=== PATIENT | male | born 1970 | race Caucasian/White ===

== ENCOUNTER 2018-02-28 21:15 | Emergency (ER) | payer MEDICARE, OTHER ==
[2018-02-28 21:22] VITALS: RESP 18; TEMP 98.7
[2018-02-28] MEDS ORDERED: ONDANSETRON 4 MG/2 ML VIAL IVP STA (21:31)
[2018-02-28] MEDS ORDERED: MORPHINE SULFATE 4 MG/ML SYRINGE IV STA (21:31)
[2018-02-28] MEDS ORDERED: SODIUM CHLORIDE 0.9% 1,000 ML IV STA (21:31)
--- NOTE | 2018-02-28 21:43 | ED ---
Abdominal Pain HPI - General Chief Complaint: Abdominal Pain Stated Complaint: Abd/flank pain Time Seen by Provider: 02/28/18 21:24 Source: patient, RN notes reviewed Mode of arrival: ambulatory Limitations: no limitations - History of Present Illness Initial Comments: 47-year-old male presents emergency Department chief complaint of left lower abdominal pain, low back pain. Patient states that started last few days states has worsened today including nausea and vomiting. Patient has been constipated for last 6 days states he took Dulcolax with no relief. Patient states the pain almost feels like it's in his left hip. Denies any redness or rash noted. Patient states she's had a gastric sleeve in the past 2 and half years ago by Dr. Monroy. Patient states he last 267 pounds. Patient denies any current chest pain, shortness breath, fever, chills. He does state that he felt that he had a fever the other day please unsure. Patient has no dysuria no hematuria patient said no history kidney stones, no prior bowel infections. - Related Data Home Medications Medication Instructions Recorded Confirmed Xolair(Unknown Dose) 1 dose SQ Q14D 02/28/18 02/28/18 Allergies Allergy/AdvReac Type Severity Reaction Status Date / Time No Known Allergies Allergy Verified 02/28/18 22:06 Review of Systems ROS Statement: Those systems with pertinent positive or pertinent negative responses have been documented in the HPI. ROS Other: All systems not noted in ROS Statement are negative. Past Medical History Past Medical History: Asthma, COPD, Hearing Disorder / Deafness, Hypertension, Osteoarthritis (OA), Sleep Apnea/CPAP/BIPAP Additional Past Medical History / Comment(s): gout, cpap, O2 therapy AT NIGHT / PRN History of Any Multi-Drug Resistant Organisms: None Reported Past Surgical History: No Surgical Hx Reported Additional Past Surgical History / Comment(s): gastric sleeve, lymp node removal from neck, varicose vein removal. Past Anesthesia/Blood Transfusion Reactions: No Reported Reaction Past Psychological History: No Psychological Hx Reported Smoking Status: Current every day smoker Past Alcohol Use History: Rare Past Drug Use History: Marijuana - Past Family History Mother Family Medical History: Diabetes Mellitus, Hypertension General Exam Limitations: no limitations General appearance: alert, in no apparent distress, other (Appears uncomfortable ) Head exam: Present: atraumatic, normocephalic, normal inspection Eye exam: Present: normal appearance, PERRL, EOMI. Absent: scleral icterus, conjunctival injection, periorbital swelling Respiratory exam: Present: normal lung sounds bilaterally. Absent: respiratory distress, wheezes, rales, rhonchi, stridor Cardiovascular Exam: Present: regular rate, normal rhythm, normal heart sounds. Absent: systolic murmur, diastolic murmur, rubs, gallop, clicks GI/Abdominal exam: Present: soft, tenderness (Mild left lower), normal bowel sounds. Absent: distended, guarding, rebound, rigid Extremities exam: Present: other (Mild discomfort with range of motion left hip , legs neurovascular intact with equal pedal pulses) Skin exam: Present: warm, dry, intact, normal color. Absent: rash Course Vital Signs 02/28/18 21:19 Temperature 98.7 F Pulse Rate 75 Respiratory 18 Rate Blood Pressure 121/76 O2 Sat by Pulse 97 Oximetry Medical Decision Making - Medical Decision Making This a 47-year-old male presented for left-sided abdominal pain. Patient lab work, CT, urinalysis no acute findings. CT showed possible evidence of the plantar processes towards umbilicus that he has no localized tenderness. Patient has all left lower quadrant. This may be related to his constipation that he has had for last 6 days. Offered enema in emergency department patient declined states he rather go home with medications. We did discuss return parameters. Patient vitals are stable, lower extremity strength equal neurovascular intact - Lab Data Result diagrams: 02/28/18 21:50 02/28/18 21:50 Lab Results 02/28/18 02/28/18 02/28/18 Range/Units 21:50 21:50 21:50 WBC 6.6 (3.8-10.6) k/uL RBC 4.94 (4.30-5.90) m/uL Hgb 15.7 (13.0-17.5) gm/dL Hct 46.2 (39.0-53.0) % MCV 93.7 (80.0-100.0) fL MCH 31.7 (25.0-35.0) pg MCHC 33.8 (31.0-37.0) g/dL RDW 13.3 (11.5-15.5) % Plt Count 127 L (150-450) k/uL Neutrophils % 55 % Lymphocytes % 29 % Monocytes % 9 % Eosinophils % 3 % Basophils % 1 % Neutrophils # 3.7 (1.3-7.7) k/uL Lymphocytes # 1.9 (1.0-4.8) k/uL Monocytes # 0.6 (0-1.0) k/uL Eosinophils # 0.2 (0-0.7) k/uL Basophils # 0.1 (0-0.2) k/uL PT (9.0-12.0) sec INR (<1.2) APTT (22.0-30.0) sec Sodium 141 (137-145) mmol/L Potassium 4.1 (3.5-5.1) mmol/L Chloride 113 H (98-107) mmol/L Carbon Dioxide 25 (22-30) mmol/L Anion Gap 3 mmol/L BUN 11 (9-20) mg/dL Creatinine 0.72 (0.66-1.25) mg/dL Est GFR (CKD-EPI)AfAm >90 (>60 ml/min/1.73 sqM) Est GFR (CKD-EPI)NonAf >90 (>60 ml/min/1.73 sqM) Glucose 120 H (74-99) mg/dL Plasma Lactic Acid Luis 1.0 (0.7-2.0) mmol/L Calcium 8.7 (8.4-10.2) mg/dL Total Bilirubin 0.3 (0.2-1.3) mg/dL AST 21 (17-59) U/L ALT 32 (21-72) U/L Alkaline Phosphatase 60 (38-126) U/L C-Reactive Protein 7.1 (<10.0) mg/L Total Protein 5.1 L (6.3-8.2) g/dL Albumin 3.1 L (3.5-5.0) g/dL Amylase 64 (30-110) U/L Lipase 102 (23-300) U/L Urine Color Urine Appearance (Clear) Urine pH (5.0-8.0) Ur Specific Collison (1.001-1.035) Urine Protein (Negative) Urine Glucose (UA) (Negative) Urine Ketones (Negative) Urine Blood (Negative) Urine Nitrite (Negative) Urine Bilirubin (Negative) Urine Urobilinogen (<2.0) mg/dL Ur Leukocyte Esterase (Negative) 02/28/18 02/28/18 Range/Units 21:50 21:55 WBC (3.8-10.6) k/uL RBC (4.30-5.90) m/uL Hgb (13.0-17.5) gm/dL Hct (39.0-53.0) % MCV (80.0-100.0) fL MCH (25.0-35.0) pg MCHC (31.0-37.0) g/dL RDW (11.5-15.5) % Plt Count (150-450) k/uL Neutrophils % % Lymphocytes % % Monocytes % % Eosinophils % % Basophils % % Neutrophils # (1.3-7.7) k/uL Lymphocytes # (1.0-4.8) k/uL Monocytes # (0-1.0) k/uL Eosinophils # (0-0.7) k/uL Basophils # (0-0.2) k/uL PT 10.0 (9.0-12.0) sec INR 0.9 (<1.2) APTT 26.7 (22.0-30.0) sec Sodium (137-145) mmol/L Potassium (3.5-5.1) mmol/L Chloride (98-107) mmol/L Carbon Dioxide (22-30) mmol/L Anion Gap mmol/L BUN (9-20) mg/dL Creatinine (0.66-1.25) mg/dL Est GFR (CKD-EPI)AfAm (>60 ml/min/1.73 sqM) Est GFR (CKD-EPI)NonAf (>60 ml/min/1.73 sqM) Glucose (74-99) mg/dL Plasma Lactic Acid Luis (0.7-2.0) mmol/L Calcium (8.4-10.2) mg/dL Total Bilirubin (0.2-1.3) mg/dL AST (17-59) U/L ALT (21-72) U/L Alkaline Phosphatase (38-126) U/L C-Reactive Protein (<10.0) mg/L Total Protein (6.3-8.2) g/dL Albumin (3.5-5.0) g/dL Amylase (30-110) U/L Lipase (23-300) U/L Urine Color Yellow Urine Appearance Clear (Clear) Urine pH 5.5 (5.0-8.0) Ur Specific Collison 1.019 (1.001-1.035) Urine Protein Negative (Negative) Urine Glucose (UA) Negative (Negative) Urine Ketones Negative (Negative) Urine Blood Negative (Negative) Urine Nitrite Negative (Negative) Urine Bilirubin Negative (Negative) Urine Urobilinogen 3.0 (<2.0) mg/dL Ur Leukocyte Esterase Negative (Negative) Disposition Clinical Impression: Abdominal pain Disposition: HOME SELF-CARE Condition: Stable Instructions: Abdominal Pain (ED) Additional Instructions: Please return to the Emergency Department if symptoms worsen or any other concerns. Is patient prescribed a controlled substance at d/c from ED?: No Referrals: Lisa Hensley MD [Primary Care Provider] - 1-2 days Time of Disposition: 22:52
[2018-02-28 22:10] LABS: Basophils # (A) 0.1 k/uL (0-0.2); Basophils % (A) 1 %; Eosinophils # (A) 0.2 k/uL (0-0.7); Eosinophils % (A) 3 %; HCT 46.2 % (39.0-53.0); HGB 15.7 gm/dL (13.0-17.5); Lymphocytes # (A) 1.9 k/uL (1.0-4.8); Lymphocytes % (A) 29 %; MCH 31.7 pg (25.0-35.0); MCHC 33.8 g/dL (31.0-37.0); MCV 93.7 fL (80.0-100.0); Mean Platelet Volume 7.3; Monocytes # (A) 0.6 k/uL (0-1.0); Monocytes % (A) 9 %; Neutrophils # (A) 3.7 k/uL (1.3-7.7); Neutrophils % (A) 55 %; Platelet Count 127 k/uL (150-450); RBC 4.94 m/uL (4.30-5.90); RDW 13.3 % (11.5-15.5); WBC 6.6 k/uL (3.8-10.6)
[2018-02-28 22:18] LABS: INR 0.9 (<1.2); Partial Thromboplastin Time 26.7 sec (22.0-30.0)
[2018-02-28 22:21] LABS: ALT 32 U/L (21-72); AST 21 U/L (17-59); Albumin 3.1 g/dL (3.5-5.0); Alkaline Phosphatase 60 U/L (38-126); Amylase 64 U/L (30-110); Anion Gap 3 mmol/L; Blood Urea Nitrogen 11 mg/dL (9-20); C Reactive Protein 7.1 mg/L (<10.0); Calcium 8.7 mg/dL (8.4-10.2); Carbon Dioxide 25 mmol/L (22-30); Chloride 113 mmol/L (98-107); Glucose 120 mg/dL (74-99); Lipase 102 U/L (23-300); Potassium 4.1 mmol/L (3.5-5.1); Sodium 141 mmol/L (137-145); Total Bilirubin 0.3 mg/dL (0.2-1.3); Total Protein 5.1 g/dL (6.3-8.2)
[2018-02-28 22:24] LABS: Appearance,Urine Clear (Clear); Bilirubin,Urine Negative (Negative); Blood,Urine Negative (Negative); Color,Urine Yellow; Glucose,Urine (UA) Negative (Negative); Ketones,Urine Negative (Negative); Leukocyte Esterase,Urine Negative (Negative); Nitrite,Urine Negative (Negative); PH, Urine 5.5 (5.0-8.0); Protein,Urine Negative (Negative); Specific Gravity,Urine 1.019 (1.001-1.035)
--- NOTE | 2018-02-28 22:42 | CT ---
EXAMINATION TYPE: CT abdomen pelvis w con DATE OF EXAM: 02/28/2018 COMPARISON: None HISTORY: Nausea, vomiting and diarrhea. CT DLP: 698.6 mGycm Automated exposure control for dose reduction was used. TECHNIQUE: Helical acquisition of images was performed from the lung bases through the pelvis. CONTRAST: Performed without Oral Contrast and with IV Contrast, patient injected with 100ml mL of Isovue 300. FINDINGS: Lung bases are clear of consolidation. There is no pleural effusion. There is no pericardial effusion . There are clips from bariatric surgery. Liver shows no focal defect. Gallbladder has normal size. B ile ducts are not dilated. Spleen appears normal. There is no pancreatic mass. There is no adrenal mass. Kidneys show satisfactory contrast opacification. There is no hydronephrosi s. There is no retroperitoneal adenopathy. Bladder distends smoothly. There is no inguinal hernia. Th ere is no free fluid in the pelvis. There is no mesenteric edema. There is no sign of free air. There is mild skin thickening at the umbi licus. Appendix is not seen. There is no sign of appendicitis. There is mild subcutaneous edema aroun d the abdomen. The lumbar vertebra have normal spacing and alignment. There is no compression fractur e. Bony pelvis appears intact. IMPRESSION: NEGATIVE CT SCAN OF THE ABDOMEN AND PELVIS. PREVIOUS SURGERY. SUBCUTANEOUS EDEMA. THERE IS SOME INCRE ASED DENSITY AT THE UMBILICUS THAT COULD RELATE TO MILD INFLAMMATORY PROCESS.
[2018-02-28] MEDS ORDERED: MAGNESIUM CITRATE 296 ML BOTTLE PO ONE (22:52)
[2018-02-28] MEDS ORDERED: DOCUSATE 283 MG/5 ML ENEMA RECTAL STA (22:52)
[2018-02-28 23:11] VITALS: BP 105/77; PULSE 68
== END 2018-02-28 23:12 | disposition home or self-care (01) ==
LOC: EC 21:15
DX: K59.00 Constipation, unspecified (principal); M54.5 Low back pain; R11.2 Nausea with vomiting, unspecified; J45.909 Unspecified asthma, uncomplicated; F17.200 Nicotine dependence, unspecified, uncomplicated; G47.30 Sleep apnea, unspecified; Z99.89 Dependence on other enabling machines and devices; Z98.84 Bariatric surgery status
CPT/HCPCS: 36415; 80053; 82150; 83605; 83690; 85025; 85610; 85730; 86140; 81003; 87040; 87086; 74177; 99284; 96374; 96375; 96361; J2270; J2405; Q9967

== ENCOUNTER 2018-05-28 18:08 | Emergency (ER) | payer MEDICARE, OTHER ==
[2018-05-28 18:16] VITALS: RESP 18
[2018-05-28] MEDS ORDERED: SODIUM CHLORIDE 0.9% 1,000 ML IV STA (19:05)
[2018-05-28] MEDS ORDERED: diphenhydrAMINE 50 MG/ML 1 ML VIAL IVP STA (19:05)
[2018-05-28] MEDS ORDERED: KETOROLAC 30 MG/ML 1 ML VIAL IVP STA (19:05)
[2018-05-28] MEDS ORDERED: METOCLOPRAMIDE 5 MG/ML 2 ML VIAL IVP STA (19:05)
[2018-05-28] MEDS ORDERED: ACETAMINOPHEN TAB 500 MG TAB PO STA (19:13)
--- NOTE | 2018-05-28 19:20 | ED ---
Headache HPI - General Source: RN notes reviewed, old records reviewed Mode of arrival: ambulatory Limitations: no limitations <Maura Johnson - Last Filed: 05/28/18 20:08> <Rolly Burrows - Last Filed: 05/28/18 20:25> - General Chief Complaint: Headache Stated Complaint: HEADACHE Time Seen by Provider: 05/28/18 18:18 - History of Present Illness Initial Comments: Patient is a 47-year-old male who presents emergency department today with complaints of headache. He reports he's been having headaches since 05/25/2018. Patient states that he has been having symptoms of tenderness to the scalp. He states the fever started today. He reports a slight cough. He has history of COPD. He states that he was unable to wear CPAP machine because the pressure off his head to hurt more. He denies any nausea or vomiting. She denies any significant history of headaches. (Maura Johnson) - Related Data Home Medications Medication Instructions Recorded Confirmed Ibuprofen [Motrin Ib] 400 mg PO Q6H PRN 05/28/18 05/28/18 Multivitamin,Therapeutic [Thera] 1 tab PO DAILY 05/28/18 05/28/18 Allergies Allergy/AdvReac Type Severity Reaction Status Date / Time Seafood Allergy Unknown Uncoded 05/28/18 19:40 Review of Systems ROS Other: All systems not noted in ROS Statement are negative. <Maura Johnson - Last Filed: 05/28/18 20:08> ROS Other: All systems not noted in ROS Statement are negative. <Rolly Burrows - Last Filed: 05/28/18 20:25> ROS Statement: Those systems with pertinent positive or pertinent negative responses have been documented in the HPI. Past Medical History Past Medical History: Asthma, COPD, Hearing Disorder / Deafness, Hypertension, Osteoarthritis (OA), Sleep Apnea/CPAP/BIPAP Additional Past Medical History / Comment(s): gout, cpap, O2 therapy AT NIGHT /PRN History of Any Multi-Drug Resistant Organisms: None Reported Past Surgical History: No Surgical Hx Reported Additional Past Surgical History / Comment(s): gastric sleeve, lymp node removal from neck, varicose vein removal. Past Anesthesia/Blood Transfusion Reactions: No Reported Reaction Past Psychological History: No Psychological Hx Reported Smoking Status: Current every day smoker Past Alcohol Use History: Rare Past Drug Use History: Marijuana - Past Family History Mother Family Medical History: Diabetes Mellitus, Hypertension <Maura Johnson - Last Filed: 05/28/18 20:08> General Exam Limitations: no limitations General appearance: alert, in no apparent distress Head exam: Present: atraumatic, normocephalic, normal inspection Eye exam: Present: normal appearance, PERRL, EOMI. Absent: scleral icterus, conjunctival injection, periorbital swelling ENT exam: Present: normal exam, mucous membranes moist Neck exam: Present: normal inspection. Absent: tenderness, meningismus, lymphadenopathy Respiratory exam: Present: normal lung sounds bilaterally. Absent: respiratory distress, wheezes, rales, rhonchi, stridor Cardiovascular Exam: Present: regular rate, normal rhythm, normal heart sounds. Absent: systolic murmur, diastolic murmur, rubs, gallop, clicks GI/Abdominal exam: Present: soft, normal bowel sounds. Absent: distended, tenderness, guarding, rebound, rigid Extremities exam: Present: normal inspection, full ROM, normal capillary refill. Absent: tenderness, pedal edema, joint swelling, calf tenderness Back exam: Present: normal inspection, full ROM Neurological exam: Present: alert, oriented X3, CN II-XII intact Expanded Patient oriented to: Present: person, place, time Speech: Present: fluid speech Cranial nerves: EOM's Intact: Normal, Facial Sensation: Normal Cerebellar function: Finger to Nose: Normal Upper motor neuron: Pronator Drift: Normal Sensory exam: Upper Extremity Light Touch: Normal, Lower Extremity Light Touch: Normal Motor strength exam: RUE: 5, LUE: 5, RLE: 5, LLE: 5 Eye Response: (4) open spontaneously Motor Response: (6) obeys commands Verbal Response: (5) oriented Francie Total: 15 Psychiatric exam: Present: normal affect, normal mood Skin exam: Present: warm, dry, intact, normal color. Absent: rash <Maura Johnson - Last Filed: 05/28/18 20:08> - General Exam Comments Initial Comments: 47-year-old male. (Maura Johnson) Course Vital Signs 05/28/18 05/28/18 18:14 18:44 Temperature 99.2 F 99.9 F H Pulse Rate 74 Respiratory 18 Rate Blood Pressure 131/85 O2 Sat by Pulse 99 Oximetry Medical Decision Making - Lab Data Result diagrams: 05/28/18 19:30 05/28/18 19:30 - Radiology Data Radiology results: report reviewed <Maura Johnson - Last Filed: 05/28/18 20:08> - Lab Data Result diagrams: 05/28/18 19:30 05/28/18 19:30 - Radiology Data Radiology results: report reviewed (Computed tomography scan of the brain shows no acute process) <Rolly Burrows - Last Filed: 05/28/18 20:25> - Medical Decision Making Patient is a 47-year-old male presents for in terms 3 days of headache. He went to some scalp tenderness. at this time has no neurological deficits otherwise appears well. Patient was started on IV given typical migraine cocktail including Toradol and Reglan and Benadryl. He had a CT of the brain without contrast that he is not have any typical headaches or migraine such as this. He did have a low-grade temperature upon arrival 99.9. He states he started somewhat feverish. His no meningeal signs. Patient's labwork including influenza testing is all reviewed and unremarkable. Negative flu swab. CT of the brain was completed without contrast. CT of the brain results are pending at 8:07 PM. Patient's case discussed with Dr. Alejandra stool finish disposition. (Maura Johnson) Patient reevaluated by myself, Dr. Burrows. Patient resting comfortably in bed. Patient states discomfort was earlier 7/10 however now has improved to 4/10 following medications. No signs of meningismus. Patient updated on results. Patient is comfortable with discharge home. Patient states headache was gradual onset over a couple of days. Patient provided warning signs to look for for worsening symptoms and need to return. Patient is advised follow-up with his doctor tomorrow. (Rolly Burrows) - Lab Data Lab Results 05/28/18 05/28/18 05/28/18 Range/Units 19:20 19:30 19:30 WBC 9.9 (3.8-10.6) k/uL RBC 5.07 (4.30-5.90) m/uL Hgb 15.3 (13.0-17.5) gm/dL Hct 47.0 (39.0-53.0) % MCV 92.7 (80.0-100.0) fL MCH 30.3 (25.0-35.0) pg MCHC 32.6 (31.0-37.0) g/dL RDW 13.0 (11.5-15.5) % Plt Count 152 (150-450) k/uL Neutrophils % 73 % Lymphocytes % 15 % Monocytes % 7 % Eosinophils % 2 % Basophils % 1 % Neutrophils # 7.3 (1.3-7.7) k/uL Lymphocytes # 1.5 (1.0-4.8) k/uL Monocytes # 0.7 (0-1.0) k/uL Eosinophils # 0.2 (0-0.7) k/uL Basophils # 0.1 (0-0.2) k/uL PT (9.0-12.0) sec INR (<1.2) APTT (22.0-30.0) sec Sodium 140 (137-145) mmol/L Potassium 4.5 (3.5-5.1) mmol/L Chloride 107 (98-107) mmol/L Carbon Dioxide 25 (22-30) mmol/L Anion Gap 8 mmol/L BUN 10 (9-20) mg/dL Creatinine 0.78 (0.66-1.25) mg/dL Est GFR (CKD-EPI)AfAm >90 (>60 ml/min/1.73 sqM) Est GFR (CKD-EPI)NonAf >90 (>60 ml/min/1.73 sqM) Glucose 98 (74-99) mg/dL Calcium 9.3 (8.4-10.2) mg/dL Influenza Type A RNA Not Detected (Not Detectd) Influenza Type B (PCR) Not Detected (Not Detectd) 05/28/18 Range/Units 19:30 WBC (3.8-10.6) k/uL RBC (4.30-5.90) m/uL Hgb (13.0-17.5) gm/dL Hct (39.0-53.0) % MCV (80.0-100.0) fL MCH (25.0-35.0) pg MCHC (31.0-37.0) g/dL RDW (11.5-15.5) % Plt Count (150-450) k/uL Neutrophils % % Lymphocytes % % Monocytes % % Eosinophils % % Basophils % % Neutrophils # (1.3-7.7) k/uL Lymphocytes # (1.0-4.8) k/uL Monocytes # (0-1.0) k/uL Eosinophils # (0-0.7) k/uL Basophils # (0-0.2) k/uL PT 10.2 (9.0-12.0) sec INR 0.9 (<1.2) APTT 28.0 (22.0-30.0) sec Sodium (137-145) mmol/L Potassium (3.5-5.1) mmol/L Chloride (98-107) mmol/L Carbon Dioxide (22-30) mmol/L Anion Gap mmol/L BUN (9-20) mg/dL Creatinine (0.66-1.25) mg/dL Est GFR (CKD-EPI)AfAm (>60 ml/min/1.73 sqM) Est GFR (CKD-EPI)NonAf (>60 ml/min/1.73 sqM) Glucose (74-99) mg/dL Calcium (8.4-10.2) mg/dL Influenza Type A RNA (Not Detectd) Influenza Type B (PCR) (Not Detectd) Disposition <Maura Johnson - Last Filed: 05/28/18 20:08> Is patient prescribed a controlled substance at d/c from ED?: No Time of Disposition: 20:25 <Rolly Burrows - Last Filed: 05/28/18 20:25> Clinical Impression: Cephalgia Disposition: HOME SELF-CARE Condition: Stable Instructions (If sedation given, give patient instructions): Acute Headache (ED) Additional Instructions: Please follow-up with primary care physician tomorrow. [id number] Tylenol and Motrin as needed. Return for increased pain, neck pain, stiffness or difficulty moving the neck, confusion, worsening or changing symptoms or other concerns. Referrals: Lisa Hensley MD [Primary Care Provider] - 1-2 days
[2018-05-28 19:42] LABS: Basophils # (A) 0.1 k/uL (0-0.2); Basophils % (A) 1 %; Eosinophils # (A) 0.2 k/uL (0-0.7); Eosinophils % (A) 2 %; HGB 15.3 gm/dL (13.0-17.5); Lymphocytes # (A) 1.5 k/uL (1.0-4.8); Lymphocytes % (A) 15 %; MCH 30.3 pg (25.0-35.0); MCHC 32.6 g/dL (31.0-37.0); MCV 92.7 fL (80.0-100.0); Mean Platelet Volume 6.9; Monocytes # (A) 0.7 k/uL (0-1.0); Monocytes % (A) 7 %; Neutrophils # (A) 7.3 k/uL (1.3-7.7); Neutrophils % (A) 73 %; Platelet Count 152 k/uL (150-450); RBC 5.07 m/uL (4.30-5.90); WBC 9.9 k/uL (3.8-10.6)
[2018-05-28 19:47] LABS: INR 0.9 (<1.2); Prothrombin Time 10.2 sec (9.0-12.0)
[2018-05-28 19:48] LABS: Anion Gap 8 mmol/L; Blood Urea Nitrogen 10 mg/dL (9-20); Calcium 9.3 mg/dL (8.4-10.2); Carbon Dioxide 25 mmol/L (22-30); Chloride 107 mmol/L (98-107); Glucose 98 mg/dL (74-99); Potassium 4.5 mmol/L (3.5-5.1); Sodium 140 mmol/L (137-145)
--- NOTE | 2018-05-28 20:04 | CT ---
EXAMINATION TYPE: CT brain wo con DATE OF EXAM: 05/28/2018 COMPARISON: None HISTORY: headache, fever CT DLP: 1062.4 mGycm. Automated Exposure Control for Dose Reduction was Utilized. TECHNIQUE: CT scan of the head is performed without contrast. FINDINGS: Ventricles and sulci appear normal. There is no mass effect nor midline shift. There is no sign of intracranial hemorrhage. Calvarium is intact. There is mild ethmoid sinus mucosal thickening. IMPRESSION: Negative CT scan of the brain. Minimal ethmoid sinusitis.
[2018-05-28 20:54] VITALS: BP 129/68; PULSE 82; TEMP 98.9
== END 2018-05-28 20:50 | disposition home or self-care (01) ==
LOC: EC 18:08
DX: R51 Headache (principal); R50.9 Fever, unspecified; R05 Cough; G47.30 Sleep apnea, unspecified; Z99.89 Dependence on other enabling machines and devices; H91.90 Unspecified hearing loss, unspecified ear; F17.200 Nicotine dependence, unspecified, uncomplicated; Z91.013 Allergy to seafood
CPT/HCPCS: 36415; 80048; 85025; 85610; 85730; 87502; 70450; 99284; 96374; 96375 ×2; 96361; J1200; J2765; J1885

== ENCOUNTER 2018-06-28 16:25 | Emergency (ER) | payer MEDICARE ==
[2018-06-28] MEDS ORDERED: KETOROLAC 60 MG/2 ML VIAL IVP STA (16:48)
--- NOTE | 2018-06-28 17:24 | ED ---
General Adult HPI - General Chief complaint: Urogenital Stated complaint: Male Time Seen by Provider: 06/28/18 16:30 Source: patient, RN notes reviewed Mode of arrival: ambulatory Limitations: no limitations - History of Present Illness Initial comments: This is a 47-year-old male who presents emergency Department complaining of perineum pain. Patient states he had a bowel movement for 4 days ago and ever since then he states the pain is been getting progressively worse per patient states it did not hurt while having a bowel movement. Patient states currently hurts sitting on but it seems to improve when he stands up and walks around. Patient denies any fever chills. Patient denies any abdominal pain. Patient denies any dysuria hematuria urinary frequency. Patient denies any recent constipation. - Related Data Home Medications Medication Instructions Recorded Confirmed Penicillin V Potassium [Pen Vee K] 500 mg PO DAILY 06/28/18 06/28/18 Previous Rx's Medication Instructions Recorded Ibuprofen [Motrin] 600 mg PO Q6HR PRN #20 tab 06/28/18 Sulfamethox-Tmp 800-160Mg [Bactrim 1 each PO Q12HR #56 tab 06/28/18 DS 800-160 mg] Allergies Allergy/AdvReac Type Severity Reaction Status Date / Time Seafood Allergy Unknown Uncoded 06/28/18 16:33 Review of Systems ROS Statement: Those systems with pertinent positive or pertinent negative responses have been documented in the HPI. ROS Other: All systems not noted in ROS Statement are negative. Past Medical History Past Medical History: Asthma, COPD, Hearing Disorder / Deafness, Hypertension, Osteoarthritis (OA), Sleep Apnea/CPAP/BIPAP Additional Past Medical History / Comment(s): gout, cpap, O2 therapy AT NIGHT /PRN History of Any Multi-Drug Resistant Organisms: None Reported Past Surgical History: No Surgical Hx Reported Additional Past Surgical History / Comment(s): gastric sleeve, lymp node removal from neck, varicose vein removal. Past Anesthesia/Blood Transfusion Reactions: No Reported Reaction Past Psychological History: No Psychological Hx Reported Smoking Status: Current every day smoker Past Alcohol Use History: Rare Past Drug Use History: Marijuana - Past Family History Mother Family Medical History: Diabetes Mellitus, Hypertension General Exam - General Exam Comments Initial Comments: GENERAL: Patient is well-developed and well-nourished. Patient is nontoxic and well- hydrated and is in mild distress. ENT: Neck is soft and supple. No significant lymphadenopathy is noted. Oropharynx i s clear. Moist mucous membranes. Neck has full range of motion without eliciting any pain. EYES: The sclera were anicteric and conjunctiva were pink and moist. Extraocular movements were intact and pupils were equal round and reactive to light. Eyelids were unremarkable. PULMONARY: Unlabored respirations. Good breath sounds bilaterally. No audible rales rhonchi or wheezing was noted. CARDIOVASCULAR: There is a regular rate and rhythm without any murmurs gallops or rubs. ABDOMEN: Soft and nontender with normal bowel sounds. SKIN: Patient's perineum has no swelling no abscess there is noted erythema. But the area is slightly tender. NEUROLOGIC: Patient is alert and oriented x3. Cranial nerves II through XII are grossly intact. Motor and sensory are also intact. Normal speech, volume and content. Symmetrical smile. MUSCULOSKELETAL: Normal extremities with adequate strength and full range of motion. No lower extremity swelling or edema. No calf tenderness. LYMPHATICS: No significant lymphadenopathy is noted PSYCHIATRIC: Normal psychiatric evaluation. Limitations: no limitations Course Vital Signs 06/28/18 16:30 Temperature 98.4 F Pulse Rate 77 Respiratory 20 Rate Blood Pressure 153/94 O2 Sat by Pulse 98 Oximetry Medical Decision Making - Medical Decision Making Patient had perineum tenderness and I will start the patient antibiotics because I'm considering the fact that the patient might have prostatitis - Lab Data Result diagrams: 06/28/18 17:37 06/28/18 17:37 Lab Results 06/28/18 06/28/18 06/28/18 Range/Units 17:37 17:37 17:51 WBC 7.6 (3.8-10.6) k/uL RBC 5.42 (4.30-5.90) m/uL Hgb 16.4 (13.0-17.5) gm/dL Hct 51.4 (39.0-53.0) % MCV 94.9 (80.0-100.0) fL MCH 30.3 (25.0-35.0) pg MCHC 31.9 (31.0-37.0) g/dL RDW 13.6 (11.5-15.5) % Plt Count 155 (150-450) k/uL Neutrophils % 63 % Lymphocytes % 27 % Monocytes % 6 % Eosinophils % 2 % Basophils % 1 % Neutrophils # 4.8 (1.3-7.7) k/uL Lymphocytes # 2.1 (1.0-4.8) k/uL Monocytes # 0.5 (0-1.0) k/uL Eosinophils # 0.2 (0-0.7) k/uL Basophils # 0.1 (0-0.2) k/uL Sodium 140 (137-145) mmol/L Potassium 4.4 (3.5-5.1) mmol/L Chloride 104 (98-107) mmol/L Carbon Dioxide 28 (22-30) mmol/L Anion Gap 8 mmol/L BUN 8 L (9-20) mg/dL Creatinine 0.81 (0.66-1.25) mg/dL Est GFR (CKD-EPI)AfAm >90 (>60 ml/min/1.73 sqM) Est GFR (CKD-EPI)NonAf >90 (>60 ml/min/1.73 sqM) Glucose 93 (74-99) mg/dL Calcium 9.7 (8.4-10.2) mg/dL Total Bilirubin 0.5 (0.2-1.3) mg/dL AST 34 (17-59) U/L ALT 22 (21-72) U/L Alkaline Phosphatase 87 (38-126) U/L Total Protein 7.8 (6.3-8.2) g/dL Albumin 4.8 (3.5-5.0) g/dL Urine Color Yellow Urine Appearance Clear (Clear) Urine pH 7.0 (5.0-8.0) Ur Specific [place] 1.009 (1.001-1.035) Urine Protein Negative (Negative) Urine Glucose (UA) Negative (Negative) Urine Ketones Negative (Negative) Urine Blood Negative (Negative) Urine Nitrite Negative (Negative) Urine Bilirubin Negative (Negative) Urine Urobilinogen 2.0 (<2.0) mg/dL Ur Leukocyte Esterase Negative (Negative) Disposition Clinical Impression: Prostatitis Disposition: HOME SELF-CARE Condition: Good Instructions (If sedation given, give patient instructions): Prostatitis (ED) Prescriptions: Sulfamethox-Tmp 800-160Mg [Bactrim DS 800-160 mg] 1 each PO Q12HR #56 tab Ibuprofen [Motrin] 600 mg PO Q6HR PRN #20 tab PRN Reason: For pain Is patient prescribed a controlled substance at d/c from ED?: No Referrals: Lisa Hensley MD [Primary Care Provider] - 1-2 days Time of Disposition: 20:15
[2018-06-28 17:47] LABS: Basophils # (A) 0.1 k/uL (0-0.2); Basophils % (A) 1 %; Eosinophils # (A) 0.2 k/uL (0-0.7); Eosinophils % (A) 2 %; HCT 51.4 % (39.0-53.0); HGB 16.4 gm/dL (13.0-17.5); Lymphocytes # (A) 2.1 k/uL (1.0-4.8); Lymphocytes % (A) 27 %; MCH 30.3 pg (25.0-35.0); MCHC 31.9 g/dL (31.0-37.0); MCV 94.9 fL (80.0-100.0); Mean Platelet Volume 6.9; Monocytes # (A) 0.5 k/uL (0-1.0); Monocytes % (A) 6 %; Neutrophils # (A) 4.8 k/uL (1.3-7.7); Neutrophils % (A) 63 %; Platelet Count 155 k/uL (150-450); RBC 5.42 m/uL (4.30-5.90); RDW 13.6 % (11.5-15.5); WBC 7.6 k/uL (3.8-10.6)
[2018-06-28 17:57] LABS: ALT 22 U/L (21-72); AST 34 U/L (17-59); Albumin 4.8 g/dL (3.5-5.0); Alkaline Phosphatase 87 U/L (38-126); Anion Gap 8 mmol/L; Blood Urea Nitrogen 8 mg/dL (9-20); Calcium 9.7 mg/dL (8.4-10.2); Carbon Dioxide 28 mmol/L (22-30); Chloride 104 mmol/L (98-107); Glucose 93 mg/dL (74-99); Potassium 4.4 mmol/L (3.5-5.1); Sodium 140 mmol/L (137-145); Total Bilirubin 0.5 mg/dL (0.2-1.3); Total Protein 7.8 g/dL (6.3-8.2)
[2018-06-28 18:17] LABS: Appearance,Urine Clear (Clear); Bilirubin,Urine Negative (Negative); Blood,Urine Negative (Negative); Color,Urine Yellow; Glucose,Urine (UA) Negative (Negative); Ketones,Urine Negative (Negative); Leukocyte Esterase,Urine Negative (Negative); Nitrite,Urine Negative (Negative); Protein,Urine Negative (Negative); Specific Gravity,Urine 1.009 (1.001-1.035)
--- NOTE | 2018-06-28 20:00 | CT ---
EXAMINATION TYPE: CT abdomen pelvis w con DATE OF EXAM: 06/28/2018 COMPARISON: CT abdomen and pelvis February 28, 2018. HISTORY: groin and anal pain CT DLP: 691.6 mGycm, Automated Exposure Control for Dose Reduction was Utilized. CONTRAST: CT scan of the abdomen and pelvis is performed without oral but with IV Contrast, patient injected wi th 100 mL of Isovue 300. FINDINGS: LUNG BASES: No significant abnormality is appreciated. LIVER/GB: No significant abnormality is appreciated. PANCREAS: No significant abnormality is seen. SPLEEN: No significant abnormality is seen. ADRENALS: No significant abnormality is seen. KIDNEYS: No significant abnormality is seen. BOWEL: Evaluation of bowel is suboptimal secondary to lack of enteric contrast. In addition patient h as virtually no intra-abdominal fat making evaluation suboptimal. There are surgical sutures epigastr ic region from gastric bypass procedure are redemonstrated. There is no suspicious small or large bow el dilatation. Perirectal/perianal fat is preserved bilaterally axial image 84. PROSTATE/SEMINAL VESICLES: No gross abnormality seen. LYMPH NODES: No greater than 1cm abdominal or pelvic lymph nodes are appreciated. OSSEOUS STRUCTURES: Multilevel facet arthropathy in the mid to lower lumbar spine. OTHER: Mild diffuse soft tissue anasarca in the pelvis is present. Prominent anterior subcutaneous ve ssels are redemonstrated. Mild calcified plaque of aorta is redemonstrated. IMPRESSION: No significant new or acute finding is seen to account for patient's clinical symptoms.
[2018-06-28 20:47] VITALS: BP 128/84; PULSE 71; RESP 18; TEMP 98
== END 2018-06-28 20:43 | disposition home or self-care (01) ==
LOC: EC 16:25
DX: N41.9 Inflammatory disease of prostate, unspecified (principal); G47.30 Sleep apnea, unspecified; H91.90 Unspecified hearing loss, unspecified ear; F17.200 Nicotine dependence, unspecified, uncomplicated; Z91.013 Allergy to seafood; Z99.89 Dependence on other enabling machines and devices; Z98.84 Bariatric surgery status
CPT/HCPCS: 36415; 80053; 85025; 81003; 74177; 99284; 96374; J1885; Q9967

== ENCOUNTER 2018-07-05 13:26 | Inpatient (IN) | payer MEDICARE, MEDICAID ==
--- NOTE | 2018-07-05 13:48 | ED ---
Psych HPI - General Chief Complaint: Psychiatric Symptoms Stated Complaint: EPS eval Time Seen by Provider: 07/05/18 13:47 Source: patient, RN notes reviewed, old records reviewed Mode of arrival: ambulatory - History of Present Illness Initial Comments: This is a 47-year-old male to the ER for evaluation of delusions, hallucinations. Patient denying drug or alcohol abuse, currently denying suicidal or homicidal thoughts. No significant prior history of similar issue MD Complaint: altered mental status -: unknown Associated Psychiatric Symptoms: racing thoughts, visual hallucinations, delusions History of same: Yes Quality: intermittent, getting worse Improves With: none Worsens With: none Associated Symptoms: denies other symptoms Treatments Prior to Arrival: placed on mental health hold - Related Data Home Medications Medication Instructions Recorded Confirmed Albuterol Inhaler [Ventolin Hfa 1 - 2 puff INHALATION RT-Q6H PRN 07/05/18 07/05/18 Inhaler] Nicotine 21Mg/24Hr Patch [Habitrol 1 patch TRANSDERM DAILY 07/05/18 07/05/18 21Mg/24Hr Patch] Previous Rx's Medication Instructions Recorded Sulfamethox-Tmp 800-160Mg [Bactrim 1 each PO Q12HR #56 tab 06/28/18 DS 800-160 mg] Allergies Allergy/AdvReac Type Severity Reaction Status Date / Time Seafood Allergy Unknown Uncoded 07/05/18 13:39 Review of Systems ROS Statement: Those systems with pertinent positive or pertinent negative responses have been documented in the HPI. ROS Other: All systems not noted in ROS Statement are negative. Past Medical History Past Medical History: Asthma, COPD, Hearing Disorder / Deafness, Hypertension, Osteoarthritis (OA), Sleep Apnea/CPAP/BIPAP Additional Past Medical History / Comment(s): gout, cpap, O2 therapy AT NIGHT /PRN History of Any Multi-Drug Resistant Organisms: None Reported Past Surgical History: No Surgical Hx Reported Additional Past Surgical History / Comment(s): gastric sleeve, lymp node removal from neck, varicose vein removal. Past Anesthesia/Blood Transfusion Reactions: No Reported Reaction Past Psychological History: No Psychological Hx Reported Smoking Status: Current every day smoker Past Alcohol Use History: Rare Past Drug Use History: Marijuana - Past Family History Mother Family Medical History: Diabetes Mellitus, Hypertension General Exam Limitations: no limitations General appearance: alert, in no apparent distress Head exam: Present: atraumatic, normocephalic, normal inspection Eye exam: Present: normal appearance, PERRL, EOMI. Absent: scleral icterus, conjunctival injection, periorbital swelling ENT exam: Present: normal exam, mucous membranes moist Neck exam: Present: normal inspection. Absent: tenderness, meningismus, lymphadenopathy Respiratory exam: Present: normal lung sounds bilaterally. Absent: respiratory distress, wheezes, rales, rhonchi, stridor Cardiovascular Exam: Present: regular rate, normal rhythm, normal heart sounds. Absent: systolic murmur, diastolic murmur, rubs, gallop, clicks GI/Abdominal exam: Present: soft, normal bowel sounds. Absent: distended, tenderness, guarding, rebound, rigid Extremities exam: Present: normal inspection, full ROM, normal capillary refill. Absent: tenderness, pedal edema, joint swelling, calf tenderness Back exam: Present: normal inspection Neurological exam: Present: alert, oriented X3, CN II-XII intact Psychiatric exam: Present: normal affect, normal mood Skin exam: Present: warm, dry, intact, normal color. Absent: rash Course Vital Signs 07/05/18 13:37 Temperature 97.9 F Pulse Rate 72 Respiratory 16 Rate Blood Pressure 152/86 O2 Sat by Pulse 96 Oximetry - Reevaluation(s) Reevaluation #1: 07/05/18 16:43 medically clear for psychiatric evaluation Medical Decision Making - Medical Decision Making 47 male the ER for psychiatric evaluation. Patient will be admitted to be seen and evaluated with likely by psychiatry - Lab Data Lab Results 07/05/18 Range/Units 16:15 Urine Color Yellow Urine Appearance Clear (Clear) Urine pH 6.0 (5.0-8.0) Ur Specific [place] 1.020 (1.001-1.035) Urine Protein Negative (Negative) Urine Glucose (UA) Negative (Negative) Urine Ketones Negative (Negative) Urine Blood Negative (Negative) Urine Nitrite Negative (Negative) Urine Bilirubin Negative (Negative) Urine Urobilinogen 4.0 (<2.0) mg/dL Ur Leukocyte Esterase Moderate H (Negative) Urine RBC 1 (0-5) /hpf Urine WBC 39 H (0-5) /hpf Urine Mucus Occasional H (None) /hpf Urine Opiates Screen Not Detected (NotDetected) Ur Oxycodone Screen Detected H (NotDetected) Urine Methadone Screen Detected H (NotDetected) Ur Propoxyphene Screen Not Detected (NotDetected) Ur Barbiturates Screen Not Detected (NotDetected) U Tricyclic Antidepress Not Detected (NotDetected) Ur Phencyclidine Scrn Not Detected (NotDetected) Ur Amphetamines Screen Not Detected (NotDetected) U Methamphetamines Scrn Not Detected (NotDetected) U Benzodiazepines Scrn Not Detected (NotDetected) Urine Cocaine Screen Not Detected (NotDetected) U Marijuana (THC) Screen Detected H (NotDetected) Disposition Clinical Impression: Psychosis, Acute psychosis Disposition: TRANSFER TO PSYCH HOSP/UNIT Condition: Fair Is patient prescribed a controlled substance at d/c from ED?: No
[2018-07-05] MEDS ORDERED: NICOTINE 21MG/24HR PATCH TRANSDERM STA (15:06)
[2018-07-05 16:22] LABS: Appearance,Urine Clear (Clear); Bilirubin,Urine Negative (Negative); Blood,Urine Negative (Negative); Color,Urine Yellow; Glucose,Urine (UA) Negative (Negative); Ketones,Urine Negative (Negative); Leukocyte Esterase,Urine Moderate (Negative); Mucus,Urine Occasional /hpf; Nitrite,Urine Negative (Negative); Protein,Urine Negative (Negative); RBC,Urine 1 /hpf (0-5); WBC,Urine 39 /hpf (0-5)
[2018-07-05 16:39] LABS: Amphetamine Screen,Urine Not Detected (NotDetected); Barbiturate Screen,Urine Not Detected (NotDetected); Benzodiazepines Screen,Urine Not Detected (NotDetected); Cocaine Screen,Urine Not Detected (NotDetected); Methadone Screen, Urine Detected (NotDetected); Opiate Screen,Urine Not Detected (NotDetected); Oxycodone Screen, Urine Detected (NotDetected); Phencyclidine Screen,Urine Not Detected (NotDetected); Tricyclic Antidepressant,Urine Not Detected (NotDetected); Urn Cannabinoid Scrn Detected (NotDetected)
[2018-07-05] MEDS ORDERED: MAGNESIUM HYDROXIDE 2,400 MG/10 ML CUP PO PRN (17:12)
[2018-07-05] MEDS ORDERED: ACETAMINOPHEN TAB 325 MG TAB PO PRN (17:12)
[2018-07-05] MEDS ORDERED: ZIPRASIDONE 20 MG VIAL IM PRN (17:12)
[2018-07-05] MEDS ORDERED: MAG HYDROX/AL HYDROX/SIMETH 30 ML CUP PO PRN (17:12)
[2018-07-05] MEDS ORDERED: LORazepam 1 MG TAB PO PRN (17:12)
[2018-07-05] MEDS ORDERED: ALBUTEROL INHALER 60 PUFF/8 GM INHALER INHALATION PRN (17:18)
[2018-07-05] MEDS ORDERED: LORazepam 2 MG/ML INJ IM PRN (17:19)
[2018-07-05] MEDS ORDERED: SULFAMETHOX-TMP 800-160MG 1 EACH TAB PO SCH (21:00)
[2018-07-06] MEDS: NICOTINE 21MG/24HR PATCH TRANSDERM SCH (08:09)
[2018-07-06 09:21] LABS: Basophils % (A) 1 %; Eosinophils # (A) 0.1 k/uL (0-0.7); Eosinophils % (A) 2 %; HCT 49.8 % (39.0-53.0); HGB 15.9 gm/dL (13.0-17.5); Lymphocytes # (A) 1.9 k/uL (1.0-4.8); Lymphocytes % (A) 27 %; MCH 30.5 pg (25.0-35.0); MCV 95.4 fL (80.0-100.0); Mean Platelet Volume 7.2; Monocytes # (A) 0.4 k/uL (0-1.0); Monocytes % (A) 6 %; Neutrophils # (A) 4.6 k/uL (1.3-7.7); Neutrophils % (A) 64 %; Platelet Count 171 k/uL (150-450); RBC 5.22 m/uL (4.30-5.90); RDW 14.4 % (11.5-15.5); WBC 7.3 k/uL (3.8-10.6)
[2018-07-06 09:44] LABS: ALT 24 U/L (21-72); AST 41 U/L (17-59); Albumin 4.6 g/dL (3.5-5.0); Alkaline Phosphatase 67 U/L (38-126); Anion Gap 9 mmol/L; Blood Urea Nitrogen 14 mg/dL (9-20); Calcium 9.6 mg/dL (8.4-10.2); Carbon Dioxide 25 mmol/L (22-30); Chloride 107 mmol/L (98-107); Cholesterol 167 mg/dL (<200); Glucose 86 mg/dL (74-99); HDL Cholesterol 49 mg/dL (40-60); LDL Cholesterol,Calculated 90 mg/dL (0-99); Potassium 4.7 mmol/L (3.5-5.1); Sodium 141 mmol/L (137-145); Total Bilirubin 0.8 mg/dL (0.2-1.3); Total Protein 7.2 g/dL (6.3-8.2); Triglycerides 140 mg/dL (<150)
[2018-07-06] MEDS: SULFAMETHOX-TMP 800-160MG 1 EACH TAB PO SCH (10:14)
[2018-07-06 15:18] VITALS: BMI 22.5
[2018-07-06] MEDS: CALCIUM CARB-VIT D 500MG-200UN 1 EACH TAB PO SCH (18:00)
[2018-07-06 20:18] LABS: Hemoglobin A1C 5.3 % (4.0-6.0)
--- NOTE | 2018-07-06 20:59 | CONS ---
CONSULTATION REASON FOR CONSULTATION: Advice regarding asthma COPD and other medical issues requested by psychiatry. HISTORY OF PRESENT ILLNESS: This 47 -year-old gentleman with past medical history of asthma, COPD, history of hearing difficulties, hypertension, history of DJD, sleep apnea, history of nicotine dependence being followed by Dr. Hensley in the outpatient setting was admitted to the hospital for psychiatric evaluation. The patient apparently had a gastric sleeve surgery. Patient also using oxygen at night and also CPAP at night. There is no history of fever, rigors or chills. No history of headache, loss of consciousness, seizures. On the CPAP, the patient is not very compliant. Only using occasionally. The patient is trying to wean himself off CPAP according to him. PAST MEDICAL HISTORY: History of asthma, COPD, history of hypertension, history of DJD, sleep apnea, history of gastric sleeve surgery and history of nicotine dependence. MEDICATIONS: Prior to admission home medications are: 1. Albuterol 1-2 puffs q.6h p.r.n. 2. Bactrim DS 1 p.o. b.i.d. 3. Habitrol 24 daily. ALLERGIES: SEAFOOD. FAMILY HISTORY: History of diabetes mellitus and hypertension. SOCIAL HISTORY: History of THC, history of smoking. REVIEW OF SYSTEMS: ENT: No diminished vision. No diminished hearing. CARDIOVASCULAR: As mentioned earlier. RESPIRATORY: As mentioned earlier. GASTROINTESTINAL: As mentioned earlier. : No dysuria. ALLERGY/IMMUNOLOGY: No asthma or hayfever. NERVOUS SYSTEM: No numbness or weakness. ALLERGY/IMMUNOLOGY: No asthma, hayfever. MUSCULOSKELETAL: As mentioned earlier. HEMATOLOGY/ONCOLOGY: No history of anemia. ENDOCRINE: No history of diabetes or hypothyroidism. CONSTITUTIONAL: As mentioned earlier. DERMATOLOGY: Negative. RHEUMATOLOGY: Negative. PSYCHIATRY: As mentioned earlier. PHYSICAL EXAMINATION: GENERAL: Alert and oriented times three. Pulse 73, blood pressure 121/64, respirations 16, temperature 98.8, pulse ox -100 percent on room air. HEENT: Conjunctivae normal. Oral mucosa moist. NECK is no jugular venous distention. No carotid bruit. No lymph node enlargement. CARDIOVASCULAR SYSTEM: S1, S2 muffled. RESPIRATORY SYSTEM: Breath sounds diminished at the bases. A few scattered rhonchi and crackles. Expiratory wheezing also present. ABDOMEN: Soft, status post history of gastric sleeve surgery. No mass palpable. LEGS: No edema. No swelling. CENTRAL NERVOUS SYSTEM: Higher functions as mentioned earlier . Moves all four extremities. No focal deficits. Cranial nerves 2 thru 12 grossly intact. Otherwise, cranial nerves . No nystagmus. No diplopia. There is no facial deviation. Muscle power is normal. Reflexes are normal. Gait is normal. LYMPHATICS: No lymph node palpable in the neck, axilla or groin. SKIN: No ulcer, rash or bleeding. LABORATORY DATA: CBC and BMP within normal limits. UA noted possibly UTI. Drug screen is positive for THC and oxycodone. ASSESSMENT: 1. Psychiatric, possible acute psychosis for evaluation. 2. History of chronic obstructive pulmonary disease, asthma. 3. Possible sleep apnea, history on CPAP. 4. Chronic hypoxic respiratory failure on 2 L oxygen at home at night. 5. Hard of hearing. Hearing deficits. 6. Hypertension. 7. History of degenerative joint disease. 8. History of sleep apnea. 9. History of gout. 10.History of nicotine dependence continued ongoing. 11.History of THC. RECOMMENDATIONS AND DISCUSSION: In this 47 -year-old gentleman who presented for psychiatric admission, at this time, I would recommend to continue current medicine, resume the home medications. Continue with bronchodilators. I would also recommend smoking cessation. Basic labs are okay. I would also recommend empiric antibiotics for UTI, which was present on admission. In this 47 -year-old gentleman admitted for psychiatric evaluation, and depression. At this time, I recommend to continue current medications, resume the home medication. Bronchodilators. Recommend to ensure oxygenation. Recommend oxygen to be given at night and as mentioned earlier the patient actually not using CPAP all the time, but if the patient symptomatic, I would recommend to arrange for the CPAP. Otherwise, patient may be asked to follow with Dr. Hensley closely after discharge. Thank you for letting us participate in the care of this patient. MMODL / IJN: [id number] / KWAKU
[2018-07-07] MEDS ORDERED: SULFAMETHOX-TMP 800-160MG 1 EACH TAB PO SCH (09:00)
[2018-07-07] MEDS: CALCIUM CARB-VIT D 500MG-200UN 1 EACH TAB PO SCH ×2 (09:01→16:46)
[2018-07-07] MEDS: CYANOCOBALAMIN 500 MCG TAB PO SCH (09:01)
[2018-07-07] MEDS: SULFAMETHOX-TMP 800-160MG 1 EACH TAB PO SCH (09:01)
[2018-07-07] MEDS: MULTIVITAMINS, THERA 1 EACH TAB PO SCH (09:01)
[2018-07-07] MEDS: NICOTINE 21MG/24HR PATCH TRANSDERM SCH (09:01)
[2018-07-07] MEDS: OLANZapine 5 MG TAB PO SCH ×2 (14:57→20:10)
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
[2018-07-08] MEDS: NICOTINE 21MG/24HR PATCH TRANSDERM SCH (09:09)
[2018-07-08] MEDS: CYANOCOBALAMIN 500 MCG TAB PO SCH (09:10)
[2018-07-08] MEDS: MULTIVITAMINS, THERA 1 EACH TAB PO SCH (09:10)
[2018-07-08] MEDS: OLANZapine 5 MG TAB PO SCH ×2 (09:10→21:10)
[2018-07-08] MEDS: CALCIUM CARB-VIT D 500MG-200UN 1 EACH TAB PO SCH ×2 (09:10→16:39)
[2018-07-08] MEDS: SULFAMETHOX-TMP 800-160MG 1 EACH TAB PO SCH (09:10)
--- NOTE | 2018-07-08 14:53 | PN ---
PROGRESS NOTE DATE OF SERVICE: 07/08/2018 CHIEF COMPLAINT: The patient was agitated and paranoid and believed people were conspiring against him. INTERVAL HISTORY: Patient has been doing fair. He is doing much better than when he first was admitted. He had a quiet evening last night. He said he had a better outlook last evening. It is noteworthy that when I talked to him, he was adamant about the idea that he was moving in with his sister and that he wanted nothing more to do with his girlfriend of 31 years. When we had a telephone conversation with his daughter, Mayela, he was quite angry and disagreed with much of what she said, namely about the problems that the family had identified involving him. He then was started on Zyprexa. Whether that has been a factor or not remains to be seen, though in the evening he ended up calling his girlfriend. He apparently had a fairly productive conversation with her. He made a commitment to her that he would continue taking medications and get some outpatient follow-up counseling. He slept fairly well last night. Today he has been up. He again talked to his girlfriend this morning. They seemed to have another good conversation. He has been attending groups. It is this noteworthy that in his 9:30 therapy group the following was documented: "Patient talked about what brought him to [facility]. The patient admits to being paranoid, thinking people were putting things in his food causing him to not eat or sleep. Patient states he is back on his meds, sleeping better and 'feels a ton better.'" When I talked to the patient, he made comments about hoping he could get out very soon, including today or anytime this weekend. I had an extensive discussion with the patient regarding circumstances for his admission. He had not seen the petition and documentation that his girlfriend had given. I shared the basics of that with him and told him we would get him a copy to read. We talked further about treatment and discharge planning. The patient tolerates his medications well. MENTAL STATUS: Patient gave fair eye contact. Psychomotor activity was somewhat restless. He answered questions with brief responses. His thoughts were clear. His affect was constricted. At times he had a tense manner. His mood was dysphoric. He seemed moderately distressed. There may continue to be some paranoid thinking. Cognition was clear. ASSESSMENT: I will continue the current diagnosis and treatment plan. I will continue psychotropic medications the same. I clarified with the patient treatment planning issues, which include that I would not discharge him before Tuesday based on circumstances of his coming into the hospital. He was accepting of that plan. He will be reading the documents that were part of petition for his coming into the hospital. I tried to help the patient understand that he came in on some very serious circumstances and that we will continue the hospitalization through the iday to be sure his medications are helping. We discussed that on Tuesday the social media director can meet with him and begin setting up discharge planning. There might be consideration for having a family meeting with the patient and his girlfriend prior to discharge. There might be consideration for titrating up further on his Zyprexa. I talked about long-term treatment issues and the possibility of his switching over to an antidepressant though indicated that would be more left to outpatient followup. We will continue to focus on stabilization and discharge planning. SELVIN / RANDI: [id number] /
[2018-07-08] MEDS ORDERED: OLANZapine 5 MG TAB PO SCH (22:00)
[2018-07-09 07:35] VITALS: RESP 16
[2018-07-09] MEDS ORDERED: OLANZapine 5 MG TAB PO SCH (09:00)
[2018-07-09] MEDS: NICOTINE 21MG/24HR PATCH TRANSDERM SCH (09:35)
[2018-07-09] MEDS: CYANOCOBALAMIN 500 MCG TAB PO SCH (09:36)
[2018-07-09] MEDS: CALCIUM CARB-VIT D 500MG-200UN 1 EACH TAB PO SCH ×2 (09:36→18:44)
[2018-07-09] MEDS: MULTIVITAMINS, THERA 1 EACH TAB PO SCH (09:36)
[2018-07-09] MEDS: OLANZapine 5 MG TAB PO SCH ×2 (09:36→21:39)
[2018-07-09] MEDS: SULFAMETHOX-TMP 800-160MG 1 EACH TAB PO SCH (09:37)
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
[2018-07-10 07:07] VITALS: TEMP 98.6
[2018-07-10 09:28] LABS: T4, Free (Free Thyroxine) 1.04 ng/dL (0.78-2.19)
[2018-07-10] MEDS: SULFAMETHOX-TMP 800-160MG 1 EACH TAB PO SCH (09:42)
[2018-07-10] MEDS: MULTIVITAMINS, THERA 1 EACH TAB PO SCH (09:42)
[2018-07-10] MEDS: CYANOCOBALAMIN 500 MCG TAB PO SCH (09:42)
[2018-07-10] MEDS: OLANZapine 5 MG TAB PO SCH (09:42)
[2018-07-10] MEDS: NICOTINE 21MG/24HR PATCH TRANSDERM SCH (09:42)
[2018-07-10] MEDS: CALCIUM CARB-VIT D 500MG-200UN 1 EACH TAB PO SCH ×2 (09:42→16:39)
--- NOTE | 2018-07-10 13:44 | PN ---
PROGRESS NOTE DATE OF SERVICE: 07/10/2018. CHIEF COMPLAINT: The patient was agitated and paranoid and believed people were conspiring against him. INTERVAL HISTORY: The patient has been doing fairly well. He has been attending groups. He has been social with others. Last evening, he visited with his girlfriend and daughter. He said they had a productive conversation and talked about discharge planning issues. He has been sleeping well at night. Today, he has been up. He comes out in the day area. He interacts with others. He engages in appropriate activities. He has been cooperative with care. He has not had any problems with his medications. MENTAL STATUS: Patient gave good eye contact. Psychomotor activity was a little slowed. Speech was somewhat monotone. He answered questions appropriately. His thoughts were clear. His affect was a little blunted. His mood quiet. He did not appear to be distressed. ASSESSMENT: I will continue the current diagnosis and treatment plan. I will increase his Zyprexa. He is currently on a total of 10 mg a day. I will increase his dose to 15 mg just at bedtime. We reviewed medication issues including indications, potential side effects. I reviewed metabolic concerns. I talked about long-term treatment issues relating to mood disorder. We will have a social insurance adviser coordinate in regards to discharge planning issues. He does work with David at [facility], who has done family therapy focused around the patient's 9-year-old son with autism. Whether or not the patient is eligible to get services at [facility] remains to be seen. He and his girlfriend did talk about some alternative options for followup care. We will focus on stabilization and discharge planning. MMODL / IJN: [id number] /
[2018-07-10] MEDS ORDERED: OLANZapine 5 MG TAB PO SCH (21:00)
[2018-07-11 06:11] VITALS: BP 111/73; PULSE 69
[2018-07-11] MEDS: NICOTINE 21MG/24HR PATCH TRANSDERM SCH (09:37)
[2018-07-11] MEDS: CALCIUM CARB-VIT D 500MG-200UN 1 EACH TAB PO SCH (09:37)
[2018-07-11] MEDS: MULTIVITAMINS, THERA 1 EACH TAB PO SCH (09:37)
[2018-07-11] MEDS: CYANOCOBALAMIN 500 MCG TAB PO SCH (09:38)
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
== END 2018-07-11 14:07 | disposition home or self-care (01) | DRG 885 ==
LOC: EC 13:26 → 3MHU 16:57
PROVIDERS: ADMIT Psychiatry & Neurology Psychiatry; ATTEND Psychiatry & Neurology Psychiatry
DX: F23 Brief psychotic disorder (principal); J96.11 Chronic respiratory failure with hypoxia; Z91.013 Allergy to seafood; J44.9 Chronic obstructive pulmonary disease, unspecified; M10.9 Gout, unspecified; M19.90 Unspecified osteoarthritis, unspecified site; Z59.9 Problem related to housing and economic circumstances, unspecified; Z82.49 Family history of ischemic heart disease and other diseases of the circulatory system; I10 Essential (primary) hypertension; F11.99 Opioid use, unspecified with unspecified opioid-induced disorder; F12.20 Cannabis dependence, uncomplicated; F17.200 Nicotine dependence, unspecified, uncomplicated; F33.3 Major depressive disorder, recurrent, severe with psychotic symptoms; F41.9 Anxiety disorder, unspecified; G47.30 Sleep apnea, unspecified; G89.4 Chronic pain syndrome; H91.90 Unspecified hearing loss, unspecified ear; Z83.3 Family history of diabetes mellitus; Z98.84 Bariatric surgery status; Z99.81 Dependence on supplemental oxygen
CPT/HCPCS: 80053; 80061; 80306; 81001; 82075; 83036; 84439; 84443; 84481; 85025; 99285

== ENCOUNTER 2022-02-07 11:54 | Inpatient (IN) | payer MEDICAID, MEDICARE, OTHER ==
--- NOTE | 2022-02-07 12:17 | ED ---
General Adult HPI - General Chief complaint: Shortness of Breath Stated complaint: SOB, chest pain Time Seen by Provider: 02/07/22 12:09 Source: patient Mode of arrival: ambulatory Limitations: no limitations - History of Present Illness Initial comments: Patient presents to the ED with his significant other for evaluation. Patient states that he has had a worsening productive cough, increased dyspnea and diffuse chest tightness for the past couple of days. Patient is also complaining of having diffuse myalgias. Patient states that he has received his Covid and influenza vaccines this season. Patient states that he took a single baby aspirin this morning. Patient states that he has a history of COPD, and he states that he is normally on 2.5-3 L of oxygen at night. Patient also states that he is on a CPAP machine at night. Patient denies trauma or injury, fever or chills, headache, focal neuro deficit, neck/arm/jaw/back pain, pleuritic pain, palpitations, dizziness, nausea/vomiting/diarrhea, bloody or melanotic stool, abdominal pain, dysuria or urinary symptoms, decreased urine output, leg or calf swelling or pain, or any other symptoms or complaints. - Related Data Previous Rx's Medication Instructions Recorded Albuterol Inhaler [Ventolin Hfa 1 - 2 puff INHALATION RT-Q6H PRN 07/11/18 Inhaler] 30 Days #1 puff Cyanocobalamin [Vitamin B-12] 500 mcg PO DAILY tab 07/11/18 Multivitamins, Thera [Multivitamin 1 each PO DAILY tab 07/11/18 (formulary)] Nicotine 21Mg/24Hr Patch [Habitrol] 1 patch TRANSDERM DAILY 30 Days 07/11/18 #30 patch OLANZapine [ZyPREXA] 15 mg PO HS 30 Days #90 tab 07/11/18 Sulfamethox-Tmp 800-160Mg [Bactrim 1 each PO Q12HR #56 tab 07/11/18 DS 800-160 mg] Allergies Allergy/AdvReac Type Severity Reaction Status Date / Time Seafood Allergy Unknown Uncoded 02/07/22 12:02 Review of Systems ROS Statement: Those systems with pertinent positive or pertinent negative responses have been documented in the HPI. ROS Other: All systems not noted in ROS Statement are negative. Past Medical History Past Medical History: Asthma, COPD, Hearing Disorder / Deafness, Hypertension, Osteoarthritis (OA), Sleep Apnea/CPAP/BIPAP Additional Past Medical History / Comment(s): gout, cpap, O2 therapy AT NIGHT /PRN History of Any Multi-Drug Resistant Organisms: None Reported Past Surgical History: No Surgical Hx Reported Additional Past Surgical History / Comment(s): gastric sleeve, lymp node removal from neck, varicose vein removal. Past Anesthesia/Blood Transfusion Reactions: No Reported Reaction Past Psychological History: No Psychological Hx Reported Smoking Status: Current every day smoker Past Alcohol Use History: Rare Past Drug Use History: Marijuana - Past Family History Mother Family Medical History: Diabetes Mellitus, Hypertension General Exam Limitations: no limitations General appearance: alert, in no apparent distress Head exam: Present: atraumatic, normocephalic Eye exam: Present: normal appearance, EOMI ENT exam: Present: normal oropharynx, mucous membranes moist Neck exam: Present: other (Trachea is in midline) Respiratory exam: Present: respiratory distress, wheezes, prolonged expiratory, other (Tachypnea). Absent: rales, rhonchi, stridor, chest wall tenderness Cardiovascular Exam: Present: normal rhythm, tachycardia, normal heart sounds, other (Normal radial pulses bilaterally) GI/Abdominal exam: Present: soft. Absent: distended, tenderness, guarding Extremities exam: Present: other (Negative Homans sign bilaterally). Absent: tenderness, pedal edema, calf tenderness Neurological exam: Present: alert, oriented X3. Absent: motor sensory deficit Psychiatric exam: Present: normal affect, normal mood Skin exam: Present: warm, dry, intact, normal color Course Vital Signs 02/07/22 02/07/22 11:59 14:09 Temperature 99.6 F Pulse Rate 115 H 98 Respiratory 26 H Rate Blood Pressure 130/84 O2 Sat by Pulse 87 L Oximetry - Reevaluation(s) Reevaluation #1: 02/07/22 14:14 Case, H&P, test results and ED management thus far were discussed with Dr. Be. He accepts hospital admission. He has no further recommendations at this time. 02/07/22 14:17 Patient states that his dyspnea has improved with the DuoNeb treatment that he was given in the ED. Patient's wheezing and air movement have improved on examination. Patient remains alert and responsive. Patient and are aware the patient's test results, and patient agrees with hospital admission at this time. EKG Findings - EKG Comments: EKG Findings:: ED physician interpretation: Sinus tachycardia, single PVC, ventricular rate of 104 bpm, normal OH and QRS intervals, normal QT interval, rightward axis, no ST or T-wave abnormality Medical Decision Making - Medical Decision Making Patient reports having a productive cough and increased dyspnea over the past couple of days. Patient's chest x-ray demonstrates findings consistent with pneumonia. Patient has a history of COPD, and his exam is consistent with COPD exacerbation. Patient has been treated with IV antibiotics, IV steroids and nebulized treatments in the ED. Patient's viral studies are negative. Patient's labs are fairly unremarkable. Patient's troponin is negative. Patient's BNP is within normal limits. Will admit the patient to the hospital for hypoxic pneumonia and COPD exacerbation. Dr. Be has accepted hospital admission. Was pt. sent in by a medical professional or institution? @ -No Did you speak to anyone other than the patient for history? @ -No Did you review nursing and triage notes? @ -Nursing triage note was reviewed Were old charts reviewed? @ -No Differential Diagnosis? @ -COPD exacerbation, asthma, pneumonia, CHF, ACS, pleural effusions, reactive airway disease URI, bronchitis, viral illness EKG interpreted by me (3pts min.)? @ -See above X-rays interpreted by me (1pt min.)? @ -No CT interpreted by me (1pt min.)? @ -No U/S interpreted by me (1pt. min.)? @ -No What testing was considered but not performed? (CT, X-rays, U/S, labs)? Why? @ -No What meds were considered but not given? Why? @ -No Did you discuss the management of the patient with other professionals? @ -See above Did you reconcile home meds? @ -No Was smoking cessation discussed for >3mins.? @ -No Was critical care preformed (if so, how long)? @ -See above Were there social determinants of health that impacted care today? How? (Homelessness, low income, unemployed, alcoholism, drug addiction, transportation, low edu. Level, literacy, decrease access to med. care, retirement, rehab)? @ -No Was there de-escalation of care discussed even if they declined? (Discuss DNR or withdrawal of care, Hospice)? @ -No What co-morbidities impacted this encounter? (DM, HTN, Smoking, COPD, CAD, Cancer, CVA, Hep., AIDS, mental health diagnosis, sleep apnea, morbid obesity)? @ -COPD, smoking Was patient admitted / discharged? @ -Admitted Undiagnosed new problem with uncertain prognosis? @ -[none] Drug Therapy requiring intensive monitoring for toxicity (Heparin, Nitro, Insulin, Cardizem)? @ -No Were any procedures done? @ -No Diagnosis/symptom? @ -COPD exacerbation Acute, or Chronic, or Acute on Chronic? @ -Acute on chronic Uncomplicated (without systemic symptoms) or Complicated (systemic symptoms)? @ -Complicated Side effects of treatment? @ -None Exacerbation, Progression, or Severe Exacerbation] @ -Severe exacerbation Poses a threat to life or bodily function? @ -Yes. Patient is hypoxic and at risk for deterioration if untreated. Diagnosis/symptom? @ -Hypoxic pneumonia Acute, or Chronic, or Acute on Chronic? @ -Acute Uncomplicated (without systemic symptoms) or Complicated (systemic symptoms)? @ -Complicated Side effects of treatment? @ -None Exacerbation, Progression, or Severe Exacerbation] @ -No Poses a threat to life or bodily function? @ -Yes. Patient is hypoxic and at risk for deterioration if untreated. - Lab Data Result diagrams: 02/07/22 12:50 02/07/22 12:50 Lab Results 02/07/22 02/07/22 02/07/22 Range/Units 12:37 12:50 12:50 WBC 9.1 (3.8-10.6) k/uL RBC 5.05 (4.30-5.90) m/uL Hgb 16.4 (13.0-17.5) gm/dL Hct 48.4 (39.0-53.0) % MCV 95.7 (80.0-100.0) fL MCH 32.4 (25.0-35.0) pg MCHC 33.9 (31.0-37.0) g/dL RDW 13.0 (11.5-15.5) % Plt Count 152 (150-450) k/uL MPV 8.1 Neutrophils % 90 % Lymphocytes % 4 % Monocytes % 4 % Eosinophils % 1 % Basophils % 1 % Neutrophils # 8.1 H (1.3-7.7) k/uL Lymphocytes # 0.4 L (1.0-4.8) k/uL Monocytes # 0.3 (0-1.0) k/uL Eosinophils # 0.1 (0-0.7) k/uL Basophils # 0.0 (0-0.2) k/uL PT 9.6 (9.0-12.0) sec INR 0.9 (<1.2) APTT 26.0 (22.0-30.0) sec Sodium (137-145) mmol/L Potassium (3.5-5.1) mmol/L Chloride (98-107) mmol/L Carbon Dioxide (22-30) mmol/L Anion Gap mmol/L BUN (9-20) mg/dL Creatinine (0.66-1.25) mg/dL Est GFR (CKD-EPI)AfAm (>60 ml/min/1.73 sqM) Est GFR (CKD-EPI)NonAf (>60 ml/min/1.73 sqM) Glucose (74-99) mg/dL Plasma Lactic Acid Luis (0.7-2.0) mmol/L Calcium (8.4-10.2) mg/dL Total Bilirubin (0.2-1.3) mg/dL AST (17-59) U/L ALT (4-49) U/L Alkaline Phosphatase (38-126) U/L Troponin I (0.000-0.034) ng/mL NT-Pro-B Natriuret Pep pg/mL Total Protein (6.3-8.2) g/dL Albumin (3.5-5.0) g/dL Influenza Type A (PCR) Not Detected (Not Detectd) Influenza Type B (PCR) Not Detected (Not Detectd) RSV (PCR) Not Detected (Not Detectd) SARS-CoV-2 (PCR) Not Detected (Not Detectd) 02/07/22 02/07/22 02/07/22 Range/Units 12:50 12:50 12:50 WBC (3.8-10.6) k/uL RBC (4.30-5.90) m/uL Hgb (13.0-17.5) gm/dL Hct (39.0-53.0) % MCV (80.0-100.0) fL MCH (25.0-35.0) pg MCHC (31.0-37.0) g/dL RDW (11.5-15.5) % Plt Count (150-450) k/uL MPV Neutrophils % % Lymphocytes % % Monocytes % % Eosinophils % % Basophils % % Neutrophils # (1.3-7.7) k/uL Lymphocytes # (1.0-4.8) k/uL Monocytes # (0-1.0) k/uL Eosinophils # (0-0.7) k/uL Basophils # (0-0.2) k/uL PT (9.0-12.0) sec INR (<1.2) APTT (22.0-30.0) sec Sodium 137 (137-145) mmol/L Potassium 4.5 (3.5-5.1) mmol/L Chloride 102 (98-107) mmol/L Carbon Dioxide 28 (22-30) mmol/L Anion Gap 7 mmol/L BUN 13 (9-20) mg/dL Creatinine 0.68 (0.66-1.25) mg/dL Est GFR (CKD-EPI)AfAm >90 (>60 ml/min/1.73 sqM) Est GFR (CKD-EPI)NonAf >90 (>60 ml/min/1.73 sqM) Glucose 106 H (74-99) mg/dL Plasma Lactic Acid Luis 1.2 (0.7-2.0) mmol/L Calcium 8.8 (8.4-10.2) mg/dL Total Bilirubin 1.1 (0.2-1.3) mg/dL AST 30 (17-59) U/L ALT 26 (4-49) U/L Alkaline Phosphatase 85 (38-126) U/L Troponin I <0.012 (0.000-0.034) ng/mL NT-Pro-B Natriuret Pep pg/mL Total Protein 7.2 (6.3-8.2) g/dL Albumin 4.4 (3.5-5.0) g/dL Influenza Type A (PCR) (Not Detectd) Influenza Type B (PCR) (Not Detectd) RSV (PCR) (Not Detectd) SARS-CoV-2 (PCR) (Not Detectd) 02/07/22 Range/Units 12:50 WBC (3.8-10.6) k/uL RBC (4.30-5.90) m/uL Hgb (13.0-17.5) gm/dL Hct (39.0-53.0) % MCV (80.0-100.0) fL MCH (25.0-35.0) pg MCHC (31.0-37.0) g/dL RDW (11.5-15.5) % Plt Count (150-450) k/uL MPV Neutrophils % % Lymphocytes % % Monocytes % % Eosinophils % % Basophils % % Neutrophils # (1.3-7.7) k/uL Lymphocytes # (1.0-4.8) k/uL Monocytes # (0-1.0) k/uL Eosinophils # (0-0.7) k/uL Basophils # (0-0.2) k/uL PT (9.0-12.0) sec INR (<1.2) APTT (22.0-30.0) sec Sodium (137-145) mmol/L Potassium (3.5-5.1) mmol/L Chloride (98-107) mmol/L Carbon Dioxide (22-30) mmol/L Anion Gap mmol/L BUN (9-20) mg/dL Creatinine (0.66-1.25) mg/dL Est GFR (CKD-EPI)AfAm (>60 ml/min/1.73 sqM) Est GFR (CKD-EPI)NonAf (>60 ml/min/1.73 sqM) Glucose (74-99) mg/dL Plasma Lactic Acid Luis (0.7-2.0) mmol/L Calcium (8.4-10.2) mg/dL Total Bilirubin (0.2-1.3) mg/dL AST (17-59) U/L ALT (4-49) U/L Alkaline Phosphatase (38-126) U/L Troponin I (0.000-0.034) ng/mL NT-Pro-B Natriuret Pep 142 pg/mL Total Protein (6.3-8.2) g/dL Albumin (3.5-5.0) g/dL Influenza Type A (PCR) (Not Detectd) Influenza Type B (PCR) (Not Detectd) RSV (PCR) (Not Detectd) SARS-CoV-2 (PCR) (Not Detectd) - Radiology Data Chest x-ray: Developing bilateral airspace disease, left greater than right. Correlate for pneumonia, interstitial pneumonitis, or pulmonary edema. Critical Care Time Critical Care Time: Yes Total Critical Care Time: 35 Disposition Clinical Impression: COPD exacerbation, Pneumonia, Hypoxia Disposition: ADMITTED IP TO THIS HOSP Condition: Stable Is patient prescribed a controlled substance at d/c from ED?: No Referrals: Nonstaff,Physician [Primary Care Provider] - 1-2 days Time of Disposition: 14:18
[2022-02-07] MEDS ORDERED: methylPREDNISolone SOD SUCCI 125 MG/2 ML VIAL IV STA (12:21)
[2022-02-07] MEDS ORDERED: IPRATROPIUM-ALBUTEROL 3 ML NEB INHALATION STA (12:21)
[2022-02-07 13:06] LABS: Basophils % (A) 1 %; Eosinophils # (A) 0.1 k/uL (0-0.7); Eosinophils % (A) 1 %; HCT 48.4 % (39.0-53.0); HGB 16.4 gm/dL (13.0-17.5); Lymphocytes # (A) 0.4 k/uL (1.0-4.8); Lymphocytes % (A) 4 %; MCH 32.4 pg (25.0-35.0); MCHC 33.9 g/dL (31.0-37.0); MCV 95.7 fL (80.0-100.0); Mean Platelet Volume 8.1; Monocytes # (A) 0.3 k/uL (0-1.0); Monocytes % (A) 4 %; Neutrophils # (A) 8.1 k/uL (1.3-7.7); Neutrophils % (A) 90 %; Platelet Count 152 k/uL (150-450); RBC 5.05 m/uL (4.30-5.90); WBC 9.1 k/uL (3.8-10.6)
[2022-02-07 13:15] LABS: ALT 26 U/L (4-49); AST 30 U/L (17-59); African American GFR (CKD) >90 (>60 ml/min/1.73 sqM); Albumin 4.4 g/dL (3.5-5.0); Alkaline Phosphatase 85 U/L (38-126); Anion Gap 7 mmol/L; Blood Urea Nitrogen 13 mg/dL (9-20); Calcium 8.8 mg/dL (8.4-10.2); Carbon Dioxide 28 mmol/L (22-30); Chloride 102 mmol/L (98-107); Glucose 106 mg/dL (74-99); Non-African American GFR(CKD) >90 (>60 ml/min/1.73 sqM); Potassium 4.5 mmol/L (3.5-5.1); Sodium 137 mmol/L (137-145); Total Bilirubin 1.1 mg/dL (0.2-1.3); Total Protein 7.2 g/dL (6.3-8.2)
--- NOTE | 2022-02-07 13:23 | XR ---
EXAMINATION TYPE: XR chest 1V portable DATE OF EXAM: 02/07/2022 Comparison: 12/03/2014 Clinical History: 51-year-old male difficulty breathing, cough Findings: Heart normal size. Developed a airspace opacity left greater than right especially mid and lower lung s. No pleural effusion. Impression: Developing bilateral airspace disease, left greater than right. Correlate for pneumonia, interstitial pneumonitis, or pulmonary edema.
[2022-02-07 13:25] LABS: INR 0.9 (<1.2); Prothrombin Time 9.6 sec (9.0-12.0)
[2022-02-07] MEDS ORDERED: AZITHROMYCIN 500 MG in SODIUM CHLORIDE 0.9% 250 ML IVPB STA (14:05)
[2022-02-07] MEDS: ALBUTEROL NEBULIZED 2.5 MG/3 ML INHALATION SCH ×3 (14:36→20:27)
[2022-02-07] MEDS ORDERED: HYDROcodone/APAP 5-325MG 1 EACH TAB PO PRN (15:44)
[2022-02-07] MEDS: HEPARIN SODIUM,PORCINE/PF 5,000 UNIT/0.5 ML SYRINGE SQ SCH (17:27)
[2022-02-07] MEDS: GABAPENTIN 300 MG CAP PO SCH (17:27)
[2022-02-07] MEDS: PANTOPRAZOLE 40 MG TABLET PO SCH (17:27)
[2022-02-07] MEDS ORDERED: FUROSEMIDE 10 MG/ML 2 ML VIAL IV ONE (20:15)
[2022-02-07] MEDS: IPRATROPIUM 0.5 MG/2.5 ML NEBU INHALATION SCH (20:26)
[2022-02-07] MEDS: SYMBICORT 160-4.5 MCG INHALER INHALATION SCH (20:27)
--- NOTE | 2022-02-07 21:04 | P.HPIM ---
History of Present Illness H&P Date: 02/07/22 Chief Complaint: HALEY Patient is a 51-year-old male with a known history of hypertension, COPD, obstructive sleep apnea on CPAP, uses oxygen at night, hearing disorder/deafness , currently everyday smoker and occasional marijuana use presents to ER with complaints of shortness of breath and cough with yellow sputum production and chest tightness for the past 3 to 4 days. He is also having myalgias patient came from [place] about 8 days ago to visit his family. Patient states that he was having chills and denies any fever at home. No nausea vomiting abdominal pain or diarrhea. No complaints of chest pain. Denies any dysuria or hematuria. c/o ankle swelling . no palpitations. 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 Chest x-ray showed developing bilateral airspace disease, left greater than right. Correlate for pneumonia. Interstitial pneumonitis pulmonary edema. EKG showed sinus tachycardia with occasional ventricular premature complexes. On admission patient was tachycardic with heart rate 115, respiratory 26 and pulse ox 87% on room air. Patient was placed on 4 L oxygen via nasal cannula. Saturating at 95%. Laboratory data showed WBC 9.1 hemoglobin 16.4 and platelets 152 Sodium 137 potassium 4.5 chloride 102 bicarb is 28 BUN 39 creatinine 0.68 and blood sugar 106 liver enzymes are not elevated troponin x1 negative and proBNP level is 142 and Influenza type B A, B and RSV and COVID-19 PCR not detected. Review of Systems Constitutional: Patient denies any fever. Does have chills . Positive for generalized weakness. Abdomen: Patient denied any nausea or vomiting or abd. pain Cardiovascular: Patient denies any chest pain. Patient does have short of breath no palpitations. Respiratory: Patient complains of cough with sputum production and shortness of breath Neurologic: Patient denied any numbness or tingling headache. Musculoskeletal: Patient denies any complaints of joint swelling or deformity. Skin: Negative Psychiatric: Negative Endocrine: No heat or cold intolerance. No recent weight gain. Genitourinary: No dysuria or hematuria. All other 14 point ROS negative except the above Past Medical History Past Medical History: Asthma, COPD, Hearing Disorder / Deafness, Hypertension, Osteoarthritis (OA), Sleep Apnea/CPAP/BIPAP Additional Past Medical History / Comment(s): gout, cpap, O2 therapy AT NIGHT /PRN History of Any Multi-Drug Resistant Organisms: None Reported Past Surgical History: No Surgical Hx Reported Additional Past Surgical History / Comment(s): gastric sleeve, lymp node removal from neck, varicose vein removal. Past Anesthesia/Blood Transfusion Reactions: No Reported Reaction Past Psychological History: No Psychological Hx Reported Smoking Status: Current every day smoker Past Alcohol Use History: Rare Past Drug Use History: Marijuana - Past Family History Mother Family Medical History: Diabetes Mellitus, Hypertension Medications and Allergies Home Medications Medication Instructions Recorded Confirmed Type Albuterol Inhaler [Ventolin Hfa 2 puff INHALATION RT-Q6H PRN 02/07/22 02/07/22 History Inhaler] Aspirin EC [Ecotrin Low Dose] 81 mg PO DAILY 02/07/22 02/07/22 History Azithromycin [Zithromax] 250 mg PO MOWEFR 02/07/22 02/07/22 History Budesonide/Glycopyr/Formoterol 2 puff INHALATION RT-BID 02/07/22 02/07/22 History [Breztri Aerosphere Inhaler] Gabapentin [Neurontin] 300 mg PO Q8H 02/07/22 02/07/22 History HYDROcodone/APAP 5-325MG [[place] 1 tab PO DAILY PRN 02/07/22 02/07/22 History 5-325] Meloxicam [Mobic] 15 mg PO DAILY 02/07/22 02/07/22 History Omeprazole 40 mg PO BID 02/07/22 02/07/22 History lisinopriL [Zestril] 40 mg PO DAILY 02/07/22 02/07/22 History tiZANidine [Zanaflex] 4 mg PO Q8HR PRN 02/07/22 02/07/22 History Allergies Allergy/AdvReac Type Severity Reaction Status Date / Time Seafood Allergy Unknown Uncoded 02/07/22 12:02 Physical Exam Vitals: Vital Signs Temp Pulse Resp BP Pulse Ox 02/07/22 15:34 92 02/07/22 15:20 91 02/07/22 14:32 96 18 136/92 95 02/07/22 14:29 96 02/07/22 14:09 98 02/07/22 11:59 99.6 F 115 H 26 H 130/84 87 L Intake and Output 02/07/22 02/07/22 02/07/22 06:59 14:59 22:59 Other: Weight 104.78 kg PHYSICAL EXAMINATION: Patient is lying in the bed comfortably, no acute distress, awake alert and oriented.. HEENT: Normocephalic. Neck is supple. Pupils reactive. Nostrils clear. Oral cavity is moist. Neck reveals no JVD, carotid bruits, or thyromegaly. CHEST EXAMINATION: Trachea is central. Symmetrical expansion. Bibasilar coarse sounds and scattered rhonchi.. Wheezing present. CARDIAC: Normal S1, S2 with no gallops. No murmurs ABDOMEN: Soft. Bowel sounds present. Nontender. No organomegaly. No abdominal bruits. Extremities: Trace bilateral pedal edema. No clubbing or cyanosis Neurologically awake, alert, oriented x3 with well-coordinated movements. No focal deficits noted Skin: No rash or skin lesions. Psychiatric: Coperative. Nonsuicidal, anxious. Musculoskeletal: No joint swelling or deformity. Normal range of motion. Results CBC & Chem 7: 02/07/22 12:50 02/07/22 12:50 Labs: Abnormal Lab Results - Last 24 Hours (Table) 02/07/22 02/07/22 Range/Units 12:50 12:50 Neutrophils # 8.1 H (1.3-7.7) k/uL Lymphocytes # 0.4 L (1.0-4.8) k/uL Glucose 106 H (74-99) mg/dL Thrombosis Risk Factor Assmnt - DVT/VTE Prophylaxis DVT/VTE Prophylaxis: Pharmacologic Prophylaxis ordered Assessment and Plan Assessment: Acute on chronic hypoxic respiratory failure secondary to pneumonia and COPD Pneumonia with bilateral airspace disease left greater than right. Interstitial pneumonitis versus pulmonary edema Acute COPD exacerbation Chronic hypoxic respiratory failure on oxygen at 2 L via nasal cannula Obstructive sleep apnea. CPAP at night Hypertension Hearing disorder/deafness Currently everyday smoker DVT prophylaxis with heparin subcu Plan: Patient will be continued on oxygen supplementation. Continue with ceftriaxone azithromycin and follow-up blood cultures and sputum cultures. Patient will be given Lasix IV 20 mg x 1. Continue with IV Solu-Medrol 40 mg every 8 hourly. Current home medications and follow-up closely. Smoking cessation has been counseled extensively. Time with Patient: Greater than 30
[2022-02-08] MEDS: HEPARIN SODIUM,PORCINE/PF 5,000 UNIT/0.5 ML SYRINGE SQ SCH ×4 (00:11→18:01)
[2022-02-08] MEDS: methylPREDNISolone SOD SUCCI 40 MG/ML 1 ML VIAL IV SCH ×3 (00:11→16:25)
[2022-02-08] MEDS: GABAPENTIN 300 MG CAP PO SCH ×3 (00:12→16:25)
[2022-02-08] MEDS: ALBUTEROL NEBULIZED 2.5 MG/3 ML INHALATION SCH ×6 (00:15→19:53)
--- NOTE | 2022-02-08 07:21 | XR ---
EXAMINATION TYPE: XR chest 1V DATE OF EXAM: 02/08/2022 6:36 AM COMPARISON: Chest radiograph from one day prior. TECHNIQUE: XR chest 1V Portable AP radiograph of the chest. CLINICAL INDICATION:Male, 51 years old with history of HALEY; FINDINGS: Lungs/Pleura: Improved aeration of lungs on today's exam with persistent airspace opacities scattered throughout the lungs. No evidence of pneumothorax or large pleural effusion. Pulmonary vascularity: Unremarkable. Heart/mediastinum: Cardiomediastinal silhouette is unremarkable. Musculoskeletal: No acute osseous pathology. IMPRESSION: Improved aeration of the lungs with persistent multifocal airspace opacities.
[2022-02-08] MEDS: IPRATROPIUM 0.5 MG/2.5 ML NEBU INHALATION SCH ×4 (09:02→19:55)
[2022-02-08] MEDS: SYMBICORT 160-4.5 MCG INHALER INHALATION SCH ×2 (09:02→19:53)
[2022-02-08 09:20] LABS: Basophils # (A) 0.02 X 10*3/uL (0.00-0.10); Basophils % (A) 0.1 %; Eosinophils # (A) 0 X 10*3/uL (0.04-0.35); Eosinophils % (A) 0 %; HCT 43.9 % (39.6-50.0); HGB 14.8 g/dL (13.0-17.0); Immature Grans, Automated 0.4 %; Lymphocytes # (A) 0.49 X 10*3/uL (0.90-5.00); Lymphocytes % (A) 3.5 %; MCHC 33.7 g/dL (32.0-37.0); MCV 94.8 fL (80.0-97.0); Mean Platelet Volume 10.5 fL (9.5-12.2); Monocytes # (A) 0.29 X 10*3/uL (0.20-1.00); Monocytes % (A) 2.1 %; NRBC Per 100 WBC 0 /100 WBCS (0.0-0.0); Neutrophils % (A) 93.9 %; Platelet Count 154 X 10*3/uL (140-440); RBC 4.63 X 10*6/uL (4.40-5.60); RDW 13.4 % (11.5-14.5); WBC 13.85 X 10*3/uL (4.50-10.00)
[2022-02-08] MEDS: lisinopriL 20 MG TAB PO SCH (09:20)
[2022-02-08] MEDS: PANTOPRAZOLE 40 MG TABLET PO SCH ×2 (09:21→18:01)
[2022-02-08 09:26] LABS: African American GFR (CKD) 119.9 (60.0-200.0); Albumin 4.2 g/dL (3.8-4.9); Anion Gap 11.1 mmol/L (10.00-18.00); BUN/Creat Ratio 24.25 Ratio (12.00-20.00); Blood Urea Nitrogen 19.4 mg/dL (9.0-27.0); Calcium 9.2 mg/dL (8.7-10.3); Carbon Dioxide 25.9 mmol/L (20.0-27.5); Globulin 2.1 g/dL (1.6-3.3); Non-African American GFR(CKD) 103.4 (60.0-200.0); Potassium 4.2 mmol/L (3.5-5.5); Total Bilirubin 0.5 mg/dL (0.30-1.20); Total Protein 6.3 g/dL (6.2-8.2)
[2022-02-08] MEDS: NICOTINE 14MG/24HR PATCH TRANSDERM SCH (12:55)
[2022-02-08] MEDS: AZITHROMYCIN 500 MG TAB PO SCH (12:55)
[2022-02-08] MEDS: ASPIRIN 81 MG PO SCH (12:55)
[2022-02-08] MEDS: HYDROcodone/APAP 5-325MG 1 EACH TAB PO PRN (20:25)
--- NOTE | 2022-02-08 22:40 | P.PN ---
Subjective Progress Note Date: 02/08/22 Patient is a 51-year-old male with a known history of hypertension, COPD, obstructive sleep apnea on CPAP, uses oxygen at night, hearing disorder/deafness, currently everyday smoker and occasional marijuana use presents to ER with complaints of shortness of breath and cough with yellow sputum production and chest tightness for the past 3 to 4 days. He is also having myalgias patient came from [place] about 8 days ago to visit his family. Patient states that he was having chills and denies any fever at home. No nausea vomiting abdominal pain or diarrhea. No complaints of chest pain. Denies any dysuria or hematuria. c/o ankle swelling . no palpitations. 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 Chest x-ray showed developing bilateral airspace disease, left greater than right. Correlate for pneumonia. Interstitial pneumonitis pulmonary edema. EKG showed sinus tachycardia with occasional ventricular premature complexes. On admission patient was tachycardic with heart rate 115, respiratory 26 and pulse ox 87% on room air. Patient was placed on 4 L oxygen via nasal cannula. Saturating at 95%. Laboratory data showed WBC 9.1 hemoglobin 16.4 and platelets 152 Sodium 137 potassium 4.5 chloride 102 bicarb is 28 BUN 39 creatinine 0.68 and blood sugar 106 liver enzymes are not elevated troponin x1 negative and proBNP level is 142 and Influenza type B A, B and RSV and COVID-19 PCR not detected. 02/08/2022 Patient is currently lying in the bed. Continues to have shortness of breath and cough. Patient states that he did have blood-tinged sputum this morning. Denied any coughing up blood clots. Patient has been afebrile overnight. Currently requiring 3 L oxygen via nasal cannula. No complaints of chest pain. No nausea or vomiting abdominal pain or diarrhea. Laboratory data showed WBC 13.8 hemoglobin 14.8 and platelets 154 Sodium 142 potassium 4.2 chloride 105 bicarb is 25.9 BUN 19.4 and creatinine 0.8 and blood sugar is 151, proBNP 142 Patient is being current on antibiotics above ceftriaxone azithromycin. Blood cultures showed no growth. Sputum cultures pending. Patient is IV Solu-Medrol and duo nebs and Symbicort. Pulmonary was consulted for evaluation. Chest x-ray this morning showed improved aeration of the lungs with persistent m ultifocal airspace opacities. Current medications reviewed. Objective - Vital Signs Vital signs: Vital Signs Temp 98.9 F 02/08/22 19:49 Pulse 87 02/08/22 20:06 Resp 28 H 02/08/22 19:49 BP 155/68 02/08/22 19:49 Pulse Ox 91 L 02/08/22 19:49 FiO2 Intake & Output 02/08/22 02/08/22 02/09/22 06:59 18:59 06:59 Intake Total 590 Output Total 900 Balance -310 Intake: Oral 590 Output: Urine 900 Other: Voiding Method Urinal # Voids 4 - Exam PHYSICAL EXAMINATION: Patient is lying in the bed comfortably, no acute distress, awake alert and oriented.. HEENT: Normocephalic. Neck is supple. Pupils reactive. Nostrils clear. Oral cavity is moist. Neck reveals no JVD, carotid bruits, or thyromegaly. CHEST EXAMINATION: Trachea is central. Symmetrical expansion. Bibasilar coarse sounds and scattered rhonchi.. Wheezing present. CARDIAC: Normal S1, S2 with no gallops. No murmurs ABDOMEN: Soft. Bowel sounds present. Nontender. No organomegaly. No abdominal bruits. Extremities: Trace bilateral pedal edema. No clubbing or cyanosis Neurologically awake, alert, oriented x3 with well-coordinated movements. No focal deficits noted Skin: No rash or skin lesions. Psychiatric: Coperative. Nonsuicidal, anxious. Musculoskeletal: No joint swelling or deformity. Normal range of motion. - Labs CBC & Chem 7: 02/08/22 05:28 02/08/22 05:28 Labs: Abnormal Lab Results - Last 24 Hours (Table) 02/08/22 02/08/22 Range/Units 05:28 05:28 WBC 13.85 H (4.50-10.00) X 10*3/uL Immature Gran # 0.05 H (0.00-0.04) X 10*3/uL Neutrophils # 13.00 H (1.80-7.70) X 10*3/uL Lymphocytes # 0.49 L (0.90-5.00) X 10*3/uL Eosinophils # 0 L (0.04-0.35) X 10*3/uL BUN/Creatinine Ratio 24.25 H (12.00-20.00) Ratio Glucose 151 H (70-110) mg/dL Microbiology - Last 24 Hours (Table) 02/08/22 04:20 Gram Stain - Preliminary Sputum Sputum Culture - Preliminary 02/07/22 12:50 Blood Culture - Preliminary Blood No Growth after 24 hours 02/07/22 12:35 Blood Culture - Preliminary Blood No Growth after 24 hours Assessment and Plan Assessment: Acute on chronic hypoxic respiratory failure secondary to pneumonia and COPD Pneumonia with bilateral airspace disease left greater than right. Interstitial pneumonitis versus pulmonary edema Acute COPD exacerbation Chronic hypoxic respiratory failure on oxygen at 2 L via nasal cannula Obstructive sleep apnea. CPAP at night Hypertension Hearing disorder/deafness Currently everyday smoker DVT prophylaxis with heparin subcu Plan: Patient will be continued on oxygen supplementation. Continue with ceftriaxone azithromycin and follow-up blood cultures and sputum cultures. Patient was given Lasix IV 20 mg x 1. Continue with IV Solu-Medrol 40 mg every 8 hourly.Pulmonary consultation. Current home medications and follow-up closely. Smoking cessation has been counseled extensively. Time with Patient: Greater than 30
[2022-02-09] MEDS: HEPARIN SODIUM,PORCINE/PF 5,000 UNIT/0.5 ML SYRINGE SQ SCH ×4 (00:37→23:38)
[2022-02-09] MEDS: methylPREDNISolone SOD SUCCI 40 MG/ML 1 ML VIAL IV SCH (00:38)
[2022-02-09] MEDS: GABAPENTIN 300 MG CAP PO SCH ×4 (00:38→23:38)
[2022-02-09] MEDS: ALBUTEROL NEBULIZED 2.5 MG/3 ML INHALATION SCH ×2 (01:01→04:34)
[2022-02-09] MEDS ORDERED: IPRATROPIUM-ALBUTEROL 3 ML NEB INHALATION PRN (07:52)
[2022-02-09] MEDS: ASPIRIN 81 MG PO SCH (08:29)
[2022-02-09] MEDS: PANTOPRAZOLE 40 MG TABLET PO SCH ×2 (08:29→17:40)
[2022-02-09] MEDS: NICOTINE 14MG/24HR PATCH TRANSDERM SCH (08:29)
[2022-02-09] MEDS: lisinopriL 20 MG TAB PO SCH (08:29)
[2022-02-09] MEDS: HYDROcodone/APAP 5-325MG 1 EACH TAB PO PRN ×3 (08:35→21:24)
[2022-02-09 08:56] LABS: Basophils # (A) 0.01 X 10*3/uL (0.00-0.10); Basophils % (A) 0.1 %; Eosinophils # (A) 0 X 10*3/uL (0.04-0.35); Eosinophils % (A) 0 %; HCT 39.5 % (39.6-50.0); HGB 13.1 g/dL (13.0-17.0); Immature Grans, Automated 0.4 %; Lymphocytes # (A) 0.44 X 10*3/uL (0.90-5.00); Lymphocytes % (A) 3.6 %; MCH 31.8 pg (27.0-32.0); MCHC 33.2 g/dL (32.0-37.0); MCV 95.9 fL (80.0-97.0); Mean Platelet Volume 10.3 fL (9.5-12.2); Monocytes # (A) 0.37 X 10*3/uL (0.20-1.00); Monocytes % (A) 3.1 %; NRBC Per 100 WBC 0 /100 WBCS (0.0-0.0); Neutrophils % (A) 92.8 %; Platelet Count 151 X 10*3/uL (140-440); RBC 4.12 X 10*6/uL (4.40-5.60); RDW 13.5 % (11.5-14.5); WBC 12.07 X 10*3/uL (4.50-10.00)
[2022-02-09 09:11] LABS: African American GFR (CKD) 119.9 (60.0-200.0); Anion Gap 8.9 mmol/L (10.00-18.00); BUN/Creat Ratio 29.25 Ratio (12.00-20.00); Blood Urea Nitrogen 23.4 mg/dL (9.0-27.0); Calcium 8.8 mg/dL (8.7-10.3); Carbon Dioxide 25.1 mmol/L (20.0-27.5); Non-African American GFR(CKD) 103.4 (60.0-200.0); Potassium 4.3 mmol/L (3.5-5.5)
[2022-02-09] MEDS: IPRATROPIUM-ALBUTEROL 3 ML NEB INHALATION SCH ×4 (09:12→19:09)
[2022-02-09] MEDS: BUDESONIDE 1 MG/2 ML NEBU INHALATION SCH ×2 (09:12→19:08)
[2022-02-09] MEDS: FORMOTEROL FUMARATE 20 MCG/2 ML NEBU INHALATION SCH ×2 (09:12→19:08)
[2022-02-09] MEDS: IPRATROPIUM 0.5 MG/2.5 ML NEBU INHALATION SCH ×4 (09:12→19:09)
--- NOTE | 2022-02-09 11:22 | P.CNPUL ---
History of Present Illness Consult date: 02/09/22 Requesting physician: Jonathan Be Reason for consult: dyspnea, cough, COPD, hypoxemia, pneumonia, abnormal CXR/CT Chief complaint: Shortness of breath, cough, pneumonia. History of present illness: Pulmonary consult dated 02/09/2022. 51-year-old male who primarily gets his healthcare down in [place]. The patient presented to the emergency room on February 07, complaining of shortness of breath, productive cough, chest congestion, shortness of breath, and hemoptysis. The patient does have a history of COPD, and is a heavy tobacco user. He does use home oxygen, at between 2-1/2-3 L, primarily at nighttime. His chest x-ray shows diffuse bilateral infiltrates. He's quite bronchospastic. He has undergone bronchoscopy in the past. She is currently on 3 L of oxygen. He is not receiving any IV fluids. White count 12.07, hemoglobin 13.1, hematocrit 39.5, and platelet count 151,000. Sodium 142, potassium 4.3, chlorides 108, CO2 25, BUN 23, creatinine 0.8. Pro-calcitonin level is elevated at 0.59. He tested negative for respiratory syncytial virus, coronavirus, and influenza A and influenza B. Chest x-ray continues to show bilateral airspace disease consistent with pneumonia. Review of Systems REVIEW OF SYSTEMS: CONSTITUTIONAL: [Negative.] NEUROLOGIC: [ Negative.] HEENT: [ Negative.] CARDIAC: [Negative.] PULMONARY: Shortness of breath, cough, chest congestion, phlegm production, and hemoptysis. GI: [Negative.] : [Negative.] RHEUMATOLOGIC: [ Negative.] IMMUNOLOGIC: [ Negative.] ENDOCRINE: [Negative. ] DERMATOLOGIC: [Negative.] Past Medical History Past Medical History: Asthma, COPD, Hearing Disorder / Deafness, Hypertension, Osteoarthritis (OA), Sleep Apnea/CPAP/BIPAP Additional Past Medical History / Comment(s): gout, cpap, O2 therapy AT NIGHT /PRN History of Any Multi-Drug Resistant Organisms: None Reported Past Surgical History: No Surgical Hx Reported Additional Past Surgical History / Comment(s): gastric sleeve, lymp node removal from neck, varicose vein removal. Past Anesthesia/Blood Transfusion Reactions: No Reported Reaction Past Psychological History: No Psychological Hx Reported Smoking Status: Current every day smoker Past Alcohol Use History: Rare Past Drug Use History: Marijuana - Past Family History Mother Family Medical History: Diabetes Mellitus, Hypertension Medications and Allergies Home Medications Medication Instructions Recorded Confirmed Type Albuterol Inhaler [Ventolin Hfa 2 puff INHALATION RT-Q6H PRN 02/07/22 02/07/22 History Inhaler] Aspirin EC [Ecotrin Low Dose] 81 mg PO DAILY 02/07/22 02/07/22 History Azithromycin [Zithromax] 250 mg PO MOWEFR 02/07/22 02/07/22 History Budesonide/Glycopyr/Formoterol 2 puff INHALATION RT-BID 02/07/22 02/07/22 History [Breztri Aerosphere Inhaler] Gabapentin [Neurontin] 300 mg PO Q8H 02/07/22 02/07/22 History HYDROcodone/APAP 5-325MG [[place] 1 tab PO DAILY PRN 02/07/22 02/07/22 History 5-325] Meloxicam [Mobic] 15 mg PO DAILY 02/07/22 02/07/22 History Omeprazole 40 mg PO BID 02/07/22 02/07/22 History lisinopriL [Zestril] 40 mg PO DAILY 02/07/22 02/07/22 History tiZANidine [Zanaflex] 4 mg PO Q8HR PRN 02/07/22 02/07/22 History Allergies Allergy/AdvReac Type Severity Reaction Status Date / Time Seafood Allergy Unknown Uncoded 02/07/22 12:02 Physical Exam Osteopathic Statement: *. No significant issues noted on an osteopathic structural exam other than those noted in the History and Physical/Consult. Vitals: Vital Signs Temp Pulse Pulse Resp BP Pulse Ox 02/09/22 09:38 112 H 02/09/22 09:27 108 H 02/09/22 09:26 108 H 02/09/22 09:12 104 H 02/09/22 07:12 98.1 F 87 17 136/80 93 L 02/09/22 04:49 89 02/09/22 04:34 90 02/09/22 02:00 98.4 F 97 24 162/80 92 L 02/09/22 01:16 94 02/09/22 01:01 85 02/08/22 20:06 87 02/08/22 20:00 28 H 02/08/22 19:54 90 02/08/22 19:49 98.9 F 103 H 28 H 155/68 91 L 02/08/22 16:28 93 L 02/08/22 16:05 92 02/08/22 15:52 90 02/08/22 12:50 88 02/08/22 12:39 88 02/08/22 12:31 88 02/08/22 12:14 98.1 F 78 18 109/64 91 L Intake and Output 02/08/22 02/09/22 02/09/22 22:59 06:59 14:59 Other: Voiding Method Urinal # Voids 4 2 No acute distress, oriented 3. Frequent bronchospastic and very wet cough. HEENT examination is grossly unremarkable. Neck supple. Full range of motion. No adenopathy thyromegaly or neck vein distention. Cardiovascular examination reveals regular rhythm rate. S1-S2 normal. No S3 or S4. No discernible murmur noted. Heart rate 112 bpm. Heart sounds are distant. Lungs reveal coarse bilateral inspiratory and expiratory rhonchi. Mild expiratory wheezes. No crackles. Breath sounds equal bilaterally but diminished throughout. Abdomen soft bowel sounds are heard. No masses or tenderness. Extremities are intact. No cyanosis clubbing or edema. Skin is without rash or lesion. Neurologic examination is brief but nonfocal. Results - Laboratory Findings CBC and BMP: 02/09/22 06:17 02/09/22 06:17 PT/INR, D-dimer PT 9.6 sec (9.0-12.0) 02/07/22 12:50 INR 0.9 (<1.2) 02/07/22 12:50 Abnormal lab findings: Abnormal Labs 02/07/22 02/07/22 02/08/22 12:50 12:50 05:28 WBC 13.85 H RBC Hct Immature Gran # 0.05 H Neutrophils # 8.1 H 13.00 H Lymphocytes # 0.4 L 0.49 L Eosinophils # 0 L Anion Gap BUN/Creatinine Ratio Glucose 106 H Procalcitonin 02/08/22 02/08/22 02/09/22 05:28 14:13 06:17 WBC 12.07 H RBC 4.12 L Hct 39.5 L Immature Gran # 0.05 H Neutrophils # 11.20 H Lymphocytes # 0.44 L Eosinophils # 0 L Anion Gap BUN/Creatinine Ratio 24.25 H Glucose 151 H Procalcitonin 0.59 H 02/09/22 06:17 WBC RBC Hct Immature Gran # Neutrophils # Lymphocytes # Eosinophils # Anion Gap 8.90 L BUN/Creatinine Ratio 29.25 H Glucose 157 H Procalcitonin - Diagnostic Findings Chest x-ray: image reviewed CT scan - chest: image reviewed Assessment and Plan Assessment: Acute hypoxemic respiratory failure, secondary to COPD exacerbation, complicated by bilateral pneumonia. History of ongoing tobacco use with nicotine addiction. History of obstructive sleep apnea syndrome, maintained on CPAP. Chronic hypoxemic respiratory failure, uses nocturnal oxygen therapy. History of deafness. His of hypertension. History of osteoarthritis. History of gout. Plan: Plan dated 02/09/2022. The patient is currently on appropriate medications, and we added Solu-Medrol, Pulmicort, formoterol, and duo nebs. The patient continues on appropriate antibiotics. The patient may end up getting a bronchoscopy on this admission. He apparently has had bronchoscopy in the past, 3 times, all negative for malignancy. He apparently gets his primary lung care and family care, down in [place]. He hasn't been feeling well for about a week. We will continue to follow make recommendations along the way. Prognosis is certainly guarded. Time with Patient: Greater than 30
[2022-02-09] MEDS: methylPREDNISolone SOD SUCCI 125 MG/2 ML VIAL IV SCH ×3 (12:11→23:38)
[2022-02-09] MEDS: AZITHROMYCIN 500 MG TAB PO SCH (12:11)
[2022-02-10] MEDS: HYDROcodone/APAP 5-325MG 1 EACH TAB PO PRN ×4 (03:23→20:29)
[2022-02-10] MEDS: methylPREDNISolone SOD SUCCI 125 MG/2 ML VIAL IV SCH ×3 (06:02→17:18)
[2022-02-10] MEDS: FORMOTEROL FUMARATE 20 MCG/2 ML NEBU INHALATION SCH ×2 (08:01→20:23)
[2022-02-10] MEDS: BUDESONIDE 1 MG/2 ML NEBU INHALATION SCH ×2 (08:01→20:24)
[2022-02-10] MEDS: IPRATROPIUM-ALBUTEROL 3 ML NEB INHALATION SCH ×4 (08:02→20:24)
[2022-02-10] MEDS: ASPIRIN 81 MG PO SCH (09:18)
[2022-02-10] MEDS: lisinopriL 20 MG TAB PO SCH (09:18)
[2022-02-10] MEDS: PANTOPRAZOLE 40 MG TABLET PO SCH ×2 (09:18→15:51)
[2022-02-10] MEDS: HEPARIN SODIUM,PORCINE/PF 5,000 UNIT/0.5 ML SYRINGE SQ SCH ×2 (09:19→15:53)
[2022-02-10] MEDS: NICOTINE 14MG/24HR PATCH TRANSDERM SCH (09:19)
[2022-02-10] MEDS: GABAPENTIN 300 MG CAP PO SCH ×2 (09:19→15:51)
[2022-02-10 10:19] LABS: Basophils # (A) 0.02 X 10*3/uL (0.00-0.10); Basophils % (A) 0.2 %; Eosinophils # (A) 0 X 10*3/uL (0.04-0.35); Eosinophils % (A) 0 %; HCT 44.5 % (39.6-50.0); HGB 14.1 g/dL (13.0-17.0); Lymphocytes # (A) 0.82 X 10*3/uL (0.90-5.00); Lymphocytes % (A) 6.8 %; MCH 31.8 pg (27.0-32.0); MCHC 31.7 g/dL (32.0-37.0); MCV 100.5 fL (80.0-97.0); Mean Platelet Volume 10.7 fL (9.5-12.2); Monocytes # (A) 0.37 X 10*3/uL (0.20-1.00); NRBC Per 100 WBC 0 /100 WBCS (0.0-0.0); Neutrophils # (A) 10.81 X 10*3/uL (1.80-7.70); Platelet Count 178 X 10*3/uL (140-440); RBC 4.43 X 10*6/uL (4.40-5.60); RDW 13.4 % (11.5-14.5); WBC 12.14 X 10*3/uL (4.50-10.00)
[2022-02-10 10:24] LABS: African American GFR (CKD) 119.9 (60.0-200.0); Anion Gap 10.7 mmol/L (10.00-18.00); Blood Urea Nitrogen 24.8 mg/dL (9.0-27.0); Calcium 9.1 mg/dL (8.7-10.3); Carbon Dioxide 27.3 mmol/L (20.0-27.5); Non-African American GFR(CKD) 103.4 (60.0-200.0); Potassium 4.8 mmol/L (3.5-5.5)
--- NOTE | 2022-02-10 10:32 | P.PN ---
Subjective Progress Note Date: 02/09/22 Patient is a 51-year-old male with a known history of hypertension, COPD, obstructive sleep apnea on CPAP, uses oxygen at night, hearing disorder/deafness, currently everyday smoker and occasional marijuana use presents to ER with complaints of shortness of breath and cough with yellow sputum production and chest tightness for the past 3 to 4 days. He is also having myalgias patient came from [place] about 8 days ago to visit his family. Patient states that he was having chills and denies any fever at home. No nausea vomiting abdominal pain or diarrhea. No complaints of chest pain. Denies any dysuria or hematuria. c/o ankle swelling . no palpitations. 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 Chest x-ray showed developing bilateral airspace disease, left greater than right. Correlate for pneumonia. Interstitial pneumonitis pulmonary edema. EKG showed sinus tachycardia with occasional ventricular premature complexes. On admission patient was tachycardic with heart rate 115, respiratory 26 and pulse ox 87% on room air. Patient was placed on 4 L oxygen via nasal cannula. Saturating at 95%. Laboratory data showed WBC 9.1 hemoglobin 16.4 and platelets 152 Sodium 137 potassium 4.5 chloride 102 bicarb is 28 BUN 39 creatinine 0.68 and blood sugar 106 liver enzymes are not elevated troponin x1 negative and proBNP level is 142 and Influenza type B A, B and RSV and COVID-19 PCR not detected. 02/08/2022 Patient is currently lying in the bed. Continues to have shortness of breath and cough. Patient states that he did have blood-tinged sputum this morning. Denied any coughing up blood clots. Patient has been afebrile overnight. Currently requiring 3 L oxygen via nasal cannula. No complaints of chest pain. No nausea or vomiting abdominal pain or diarrhea. Laboratory data showed WBC 13.8 hemoglobin 14.8 and platelets 154 Sodium 142 potassium 4.2 chloride 105 bicarb is 25.9 BUN 19.4 and creatinine 0.8 and blood sugar is 151, proBNP 142 Patient is being current on antibiotics above ceftriaxone azithromycin. Blood cultures showed no growth. Sputum cultures pending. Patient is IV Solu-Medrol and duo nebs and Symbicort. Pulmonary was consulted for evaluation. Chest x-ray this morning showed improved aeration of the lungs with persistent m ultifocal airspace opacities. 02/09/2017 Patient is currently able to sit on the side of the bed. Breathing status is better. Patient still having wheezing and scattered rhonchi and coarse sounds o n exam. Complains of cough and unable to bring up sputum. No complaints of chest pain or tightness. No nausea or vomiting or abdominal pain or diarrhea. Pro calcitonin level is 0.59 and other laboratory data reviewed. WBC 12.07.. Current medications reviewed. Objective - Vital Signs Vital signs: Vital Signs Temp 98.5 F 02/09/22 20:00 Pulse 96 02/09/22 20:00 Resp 20 02/09/22 20:00 BP 142/77 02/09/22 20:00 Pulse Ox 91 L 02/09/22 20:00 FiO2 Intake & Output 02/09/22 02/09/22 02/10/22 06:59 18:59 06:59 Other: Voiding Method Urinal # Voids 2 2 - Exam PHYSICAL EXAMINATION: Patient is lying in the bed comfortably, no acute distress, awake alert and oriented.. HEENT: Normocephalic. Neck is supple. Pupils reactive. Nostrils clear. Oral cavity is moist. Neck reveals no JVD, carotid bruits, or thyromegaly. CHEST EXAMINATION: Trachea is central. Symmetrical expansion. Bibasilar coarse sounds and scattered rhonchi.. Wheezing present. CARDIAC: Normal S1, S2 with no gallops. No murmurs ABDOMEN: Soft. Bowel sounds present. Nontender. No organomegaly. No abdominal bruits. Extremities: Trace bilateral pedal edema. No clubbing or cyanosis Neurologically awake, alert, oriented x3 with well-coordinated movements. No focal deficits noted Skin: No rash or skin lesions. Psychiatric: Coperative. Nonsuicidal, anxious. Musculoskeletal: No joint swelling or deformity. Normal range of motion. - Labs CBC & Chem 7: 02/10/22 07:28 02/10/22 07:28 Labs: Abnormal Lab Results - Last 24 Hours (Table) 02/08/22 02/09/22 02/09/22 Range/Units 14:13 06:17 06:17 WBC 12.07 H (4.50-10.00) X 10*3/uL RBC 4.12 L (4.40-5.60) X 10*6/uL Hct 39.5 L (39.6-50.0) % Immature Gran # 0.05 H (0.00-0.04) X 10*3/uL Neutrophils # 11.20 H (1.80-7.70) X 10*3/uL Lymphocytes # 0.44 L (0.90-5.00) X 10*3/uL Eosinophils # 0 L (0.04-0.35) X 10*3/uL Anion Gap 8.90 L (10.00-18.00) mmol/L BUN/Creatinine Ratio 29.25 H (12.00-20.00) Ratio Glucose 157 H (70-110) mg/dL Procalcitonin 0.59 H (0.02-0.09) ng/mL Microbiology - Last 24 Hours (Table) 02/07/22 12:50 Blood Culture - Preliminary Blood No Growth after 48 hours 02/07/22 12:35 Blood Culture - Preliminary Blood No Growth after 48 hours 02/08/22 04:20 Gram Stain - Preliminary Sputum Sputum Culture - Preliminary Assessment and Plan Assessment: Acute on chronic hypoxic respiratory failure secondary to pneumonia and COPD Pneumonia with bilateral airspace disease left greater than right. Interstitial pneumonitis versus pulmonary edema Acute COPD exacerbation Chronic hypoxic respiratory failure on oxygen at 2 L via nasal cannula Obstructive sleep apnea. CPAP at night Hypertension Hearing disorder/deafness Currently everyday smoker DVT prophylaxis with heparin subcu Plan: Patient will be continued on oxygen supplementation. Continue with ceftriaxone, azithromycin and follow-up blood cultures and sputum cultures. Cultures have been negative . level is 0.59. Patient was given Lasix IV 20 mg x 1. Continue with IV Solu-Medrol 40 mg every 8 hourly.started on Pulmicort and Perforomist. Pulmonary is following.. Current home medications and follow-up closely. Smoking cessation has been counseled extensively. Time with Patient: Greater than 30
--- NOTE | 2022-02-10 14:26 | P.PN ---
Subjective Progress Note Date: 02/10/22 Principal diagnosis: Acute COPD exacerbation, pneumonia 51-year-old male who primarily gets his healthcare down in [place]. The patient presented to the emergency room on February 07, complaining of shortness of breath, productive cough, chest congestion, shortness of breath, and hemoptysis. The patient does have a history of COPD, and is a heavy tobacco user. He does use home oxygen, at between 2-1/2-3 L, primarily at nighttime. His chest x-ray shows diffuse bilateral infiltrates. He's quite bronchospastic. He has undergone bronchoscopy in the past. She is currently on 3 L of oxygen. He is not receiving any IV fluids. White count 12.07, hemoglobin 13.1, hematocrit 39.5, and platelet count 151,000. Sodium 142, potassium 4.3, chlorides 108, CO2 25, BUN 23, creatinine 0.8. Pro-calcitonin level is elevated at 0.59. He tested negative for respiratory syncytial virus, coronavirus, and influenza A and influenza B. Chest x-ray continues to show bilateral airspace disease consistent with pneumonia. I'm evaluating this patient today on 02/10/2022 on a general medical floor. Patient reports marked improvement in his shortness of breath and cough. Patient denies any further blood tinge in his sputum. Patient denies significant shortness of breath, chest pain, fever. No new chest x-ray did review today. Final sputum culture was negative, and blood cultures are negative at 48 hours. CBC from today shows mild leukocytosis with WBC count of, hemoglobin 14, hematocrit 44.5, platelets 178,000. BMP is stable sodium of 143, potassium 4.8, chloride 105, serum CO2 27, BUN 25, creatinine 0.8, glucose 140. His procalcitonin was high at 0.59. He is receiving empiric antibiotics in the form of Rocephin. He is also maintained on DuoNeb inhalation, budesonide inhalation, formoterol inhalation, and IV Solu-Medrol. Also receiving Protonix for GI prophylaxis and heparin for DVT prophylaxis. Vital signs remain stable. Objective - Vital Signs Vital signs: Vital Signs Temp 97.9 F 02/10/22 13:33 Pulse 84 02/10/22 13:33 Resp 16 02/10/22 13:33 BP 162/80 02/10/22 13:33 Pulse Ox 94 L 12/28/22 13:33 FiO2 Intake & Output 02/09/22 02/10/22 02/10/22 18:59 06:59 18:59 Intake Total 540 240 Output Total 800 Balance 540 -560 Intake: Oral 540 240 Output: Urine 800 Other: Voiding Method Urinal Urinal # Voids 2 1 # Bowel Movements 1 - Exam GENERAL EXAM: Alert, obese male, comfortable in no apparent distress. HEAD: Normocephalic. EYES: Normal reaction of pupils, equal size. NOSE: Clear with pink turbinates. THROAT: No erythema or exudates. NECK: No masses, no JVD. CHEST: No chest wall deformity. LUNGS: Equal air entry with no crackles, rhonchi or dullness. Expiratory wheezes heard increased aeration prior exam. CVS: S1 and S2 normal with no audible murmur, regular rhythm. ABDOMEN: No hepatosplenomegaly, normal bowel sounds, no guarding or rigidity. SPINE: No scoliosis or deformity SKIN: No rashes CENTRAL NERVOUS SYSTEM: No focal deficits, tone is normal in all 4 extremities. EXTREMITIES: There is no peripheral edema. No clubbing, no cyanosis. Peripheral pulses are intact. - Labs CBC & Chem 7: 02/10/22 07:28 02/10/22 07:28 Labs: Abnormal Lab Results - Last 24 Hours (Table) 02/10/22 02/10/22 Range/Units 07:28 07:28 WBC 12.14 H (4.50-10.00) X 10*3/uL MCV 100.5 H (80.0-97.0) fL MCHC 31.7 L (32.0-37.0) g/dL Immature Gran # 0.12 H (0.00-0.04) X 10*3/uL Neutrophils # 10.81 H (1.80-7.70) X 10*3/uL Lymphocytes # 0.82 L (0.90-5.00) X 10*3/uL Eosinophils # 0 L (0.04-0.35) X 10*3/uL BUN/Creatinine Ratio 31.00 H (12.00-20.00) Ratio Glucose 140 H (70-110) mg/dL Microbiology - Last 24 Hours (Table) 02/08/22 04:20 Gram Stain - Final Sputum Sputum Culture - Final 02/07/22 12:50 Blood Culture - Preliminary Blood No Growth after 48 hours 02/07/22 12:35 Blood Culture - Preliminary Blood No Growth after 48 hours Assessment and Plan Assessment: Acute hypoxemic respiratory failure, secondary to acute COPD exacerbation, complicated by bilateral pneumonia. History of ongoing tobacco use with nicotine addiction. History of obstructive sleep apnea syndrome, maintained on CPAP. Chronic hypoxemic respiratory failure, uses nocturnal oxygen therapy. History of deafness. His of hypertension. History of osteoarthritis. History of gout. Plan: Patient's labs and medications reviewed Continue DuoNeb inhalation, budesonide inhalation, formoterol inhalation. Continue IV steroids Continue supplemental oxygen to maintain SpO2 greater than 92% To new empiric antibiotic therapy in the form of Rocephin GI and DVT prophylaxis We will continue to follow I have personally seen and examined the patient, performed the documentation and the assessment and plan as written. Number of minutes spent on the visit: [ 10]. Time with Patient: Less than 30
[2022-02-11] MEDS: methylPREDNISolone SOD SUCCI 125 MG/2 ML VIAL IV SCH ×5 (00:31→23:39)
[2022-02-11] MEDS: GABAPENTIN 300 MG CAP PO SCH ×4 (00:33→23:39)
[2022-02-11] MEDS: HEPARIN SODIUM,PORCINE/PF 5,000 UNIT/0.5 ML SYRINGE SQ SCH ×4 (00:33→23:38)
[2022-02-11] MEDS: HYDROcodone/APAP 5-325MG 1 EACH TAB PO PRN ×6 (00:35→23:39)
[2022-02-11] MEDS: BUDESONIDE 1 MG/2 ML NEBU INHALATION SCH ×2 (08:14→20:17)
[2022-02-11] MEDS: IPRATROPIUM-ALBUTEROL 3 ML NEB INHALATION SCH ×4 (08:14→20:17)
[2022-02-11] MEDS: FORMOTEROL FUMARATE 20 MCG/2 ML NEBU INHALATION SCH ×2 (08:14→20:17)
[2022-02-11 08:35] LABS: Basophils # (A) 0.02 X 10*3/uL (0.00-0.10); Basophils % (A) 0.2 %; Eosinophils # (A) 0 X 10*3/uL (0.04-0.35); Eosinophils % (A) 0 %; HGB 13.8 g/dL (13.0-17.0); Immature Grans, Automated 2.8 %; Lymphocytes # (A) 0.96 X 10*3/uL (0.90-5.00); Lymphocytes % (A) 9.5 %; MCH 31.4 pg (27.0-32.0); MCHC 32.9 g/dL (32.0-37.0); MCV 95.7 fL (80.0-97.0); Monocytes # (A) 0.32 X 10*3/uL (0.20-1.00); Monocytes % (A) 3.2 %; NRBC Per 100 WBC 0 /100 WBCS (0.0-0.0); Neutrophils # (A) 8.49 X 10*3/uL (1.80-7.70); Neutrophils % (A) 84.3 %; Platelet Count 167 X 10*3/uL (140-440); RBC 4.39 X 10*6/uL (4.40-5.60); RDW 13.3 % (11.5-14.5); WBC 10.07 X 10*3/uL (4.50-10.00)
[2022-02-11 08:45] LABS: African American GFR (CKD) 119.9 (60.0-200.0); Anion Gap 10.5 mmol/L (10.00-18.00); BUN/Creat Ratio 30.63 Ratio (12.00-20.00); Blood Urea Nitrogen 24.5 mg/dL (9.0-27.0); Calcium 9.3 mg/dL (8.7-10.3); Carbon Dioxide 27.5 mmol/L (20.0-27.5); Non-African American GFR(CKD) 103.4 (60.0-200.0); Potassium 4.7 mmol/L (3.5-5.5)
[2022-02-11] MEDS: NICOTINE 14MG/24HR PATCH TRANSDERM SCH (09:40)
[2022-02-11] MEDS: lisinopriL 20 MG TAB PO SCH (09:41)
[2022-02-11] MEDS: PANTOPRAZOLE 40 MG TABLET PO SCH ×2 (09:41→17:06)
[2022-02-11] MEDS: ASPIRIN 81 MG PO SCH (09:41)
--- NOTE | 2022-02-11 11:58 | P.PN ---
Subjective Progress Note Date: 02/10/22 Patient is a 51-year-old male with a known history of hypertension, COPD, obstructive sleep apnea on CPAP, uses oxygen at night, hearing disorder/deafness, currently everyday smoker and occasional marijuana use presents to ER with complaints of shortness of breath and cough with yellow sputum production and chest tightness for the past 3 to 4 days. He is also having myalgias patient came from [place] about 8 days ago to visit his family. Patient states that he was having chills and denies any fever at home. No nausea vomiting abdominal pain or diarrhea. No complaints of chest pain. Denies any dysuria or hematuria. c/o ankle swelling . no palpitations. 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 Chest x-ray showed developing bilateral airspace disease, left greater than right. Correlate for pneumonia. Interstitial pneumonitis pulmonary edema. EKG showed sinus tachycardia with occasional ventricular premature complexes. On admission patient was tachycardic with heart rate 115, respiratory 26 and pulse ox 87% on room air. Patient was placed on 4 L oxygen via nasal cannula. Saturating at 95%. Laboratory data showed WBC 9.1 hemoglobin 16.4 and platelets 152 Sodium 137 potassium 4.5 chloride 102 bicarb is 28 BUN 39 creatinine 0.68 and blood sugar 106 liver enzymes are not elevated troponin x1 negative and proBNP level is 142 and Influenza type B A, B and RSV and COVID-19 PCR not detected. 02/08/2022 Patient is currently lying in the bed. Continues to have shortness of breath and cough. Patient states that he did have blood-tinged sputum this morning. Denied any coughing up blood clots. Patient has been afebrile overnight. Currently requiring 3 L oxygen via nasal cannula. No complaints of chest pain. No nausea or vomiting abdominal pain or diarrhea. Laboratory data showed WBC 13.8 hemoglobin 14.8 and platelets 154 Sodium 142 potassium 4.2 chloride 105 bicarb is 25.9 BUN 19.4 and creatinine 0.8 and blood sugar is 151, proBNP 142 Patient is being current on antibiotics above ceftriaxone azithromycin. Blood cultures showed no growth. Sputum cultures pending. Patient is IV Solu-Medrol and duo nebs and Symbicort. Pulmonary was consulted for evaluation. Chest x-ray this morning showed improved aeration of the lungs with persistent m ultifocal airspace opacities. 02/09/2022 Patient is currently able to sit on the side of the bed. Breathing status is better. Patient still having wheezing and scattered rhonchi and coarse sounds o n exam. Complains of cough and unable to bring up sputum. No complaints of chest pain or tightness. No nausea or vomiting or abdominal pain or diarrhea. Pro calcitonin level is 0.59 and other laboratory data reviewed. WBC 12.07.. 02/10/2022 Patient is sitting on the side of the bed.. No complaints of chest pain. Shortness of breath is improving. Still having occasional dyspnea. No nausea v omiting or abdominal pain. No fever no chills. Patient is being continued on antibiotics in the form of ceftriaxone and azithromycin. Patient is requesting to increase the pain medications to every 4 hours. Laboratory data showed 12.1 WBC, hemoglobin 14.1 and platelets 178 sodium 143 potassium 4.8 chloride 105 bicarb is 27.3 BUN 24.8 and creatinine 0.8. Patient remains on IV Solu-Medrol 60 m every 6 hourly and duo nebs, Pulmicort and Perforomist. Pulmonary is on board. Current medications reviewed. Objective - Vital Signs Vital signs: Vital Signs Temp 98.3 F 02/10/22 19:03 Pulse 76 02/10/22 20:48 Resp 15 02/10/22 19:03 BP 143/82 02/10/22 19:03 Pulse Ox 95 02/10/22 19:03 FiO2 Intake & Output 02/10/22 02/10/22 02/11/22 06:59 18:59 06:59 Intake Total 540 240 240 Output Total 800 Balance 540 -560 240 Intake: Oral 540 240 240 Output: Urine 800 Other: Voiding Method Urinal Urinal # Voids 2 # Bowel Movements 1 - Exam PHYSICAL EXAMINATION: Patient is lying in the bed comfortably, no acute distress, awake alert and oriented.. HEENT: Normocephalic. Neck is supple. Pupils reactive. Nostrils clear. Oral cavity is moist. Neck reveals no JVD, carotid bruits, or thyromegaly. CHEST EXAMINATION: Trachea is central. Symmetrical expansion. Bilateral mild expiratory wheeze and scattered rhonchi.. CARDIAC: Normal S1, S2 with no gallops. No murmurs ABDOMEN: Soft. Bowel sounds present. Nontender. No organomegaly. No abdominal bruits. Extremities: Trace bilateral pedal edema. No clubbing or cyanosis Neurologically awake, alert, oriented x3 with well-coordinated movements. No focal deficits noted Skin: No rash or skin lesions. Psychiatric: Coperative. Nonsuicidal, anxious. Musculoskeletal: No joint swelling or deformity. Normal range of motion. - Labs CBC & Chem 7: 02/11/22 05:59 02/11/22 05:59 Labs: Abnormal Lab Results - Last 24 Hours (Table) 02/10/22 02/10/22 Range/Units 07:28 07:28 WBC 12.14 H (4.50-10.00) X 10*3/uL MCV 100.5 H (80.0-97.0) fL MCHC 31.7 L (32.0-37.0) g/dL Immature Gran # 0.12 H (0.00-0.04) X 10*3/uL Neutrophils # 10.81 H (1.80-7.70) X 10*3/uL Lymphocytes # 0.82 L (0.90-5.00) X 10*3/uL Eosinophils # 0 L (0.04-0.35) X 10*3/uL BUN/Creatinine Ratio 31.00 H (12.00-20.00) Ratio Glucose 140 H (70-110) mg/dL Microbiology - Last 24 Hours (Table) 02/07/22 12:35 Blood Culture - Preliminary Blood No Growth after 72 hours 02/07/22 12:50 Blood Culture - Preliminary Blood No Growth after 72 hours 02/08/22 04:20 Gram Stain - Final Sputum Sputum Culture - Final Assessment and Plan Assessment: Acute on chronic hypoxic respiratory failure secondary to pneumonia and COPD Pneumonia with bilateral airspace disease left greater than right. Interstitial pneumonitis versus pulmonary edema Acute COPD exacerbation Chronic hypoxic respiratory failure on oxygen at 2 L via nasal cannula Obstructive sleep apnea. CPAP at night Hypertension Hearing disorder/deafness Currently everyday smoker DVT prophylaxis with heparin subcu Plan: Patient will be continued on oxygen supplementation. Continue with ceftriaxone, azithromycin for 3 days. and follow-up blood cultures and sputum cultures. Cultures have been negative . level is 0.59. Patient was given Lasix IV 20 mg x 1 on admission.. Continue with IV Solu-Medrol 40 mg every 8 hourly.started on Pulmicort and Perforomist. Pulmonary is following.. Titrate down oxygen to 2 L by nasal cannula. Current home medications and follow-up closely. Smoking cessation has been counseled extensively. Time with Patient: Greater than 30
--- NOTE | 2022-02-11 14:04 | P.PN ---
Subjective Progress Note Date: 02/11/22 Principal diagnosis: Acute COPD exacerbation, pneumonia 51-year-old male who primarily gets his healthcare down in [place]. The patient presented to the emergency room on February 07, complaining of shortness of breath, productive cough, chest congestion, shortness of breath, and hemoptysis. The patient does have a history of COPD, and is a heavy tobacco user. He does use home oxygen, at between 2-1/2-3 L, primarily at nighttime. His chest x-ray shows diffuse bilateral infiltrates. He's quite bronchospastic. He has undergone bronchoscopy in the past. She is currently on 3 L of oxygen. He is not receiving any IV fluids. White count 12.07, hemoglobin 13.1, hematocrit 39.5, and platelet count 151,000. Sodium 142, potassium 4.3, chlorides 108, CO2 25, BUN 23, creatinine 0.8. Pro-calcitonin level is elevated at 0.59. He tested negative for respiratory syncytial virus, coronavirus, and influenza A and influenza B. Chest x-ray continues to show bilateral airspace disease consistent with pneumonia. I'm evaluating this patient today on 02/10/2022 on a general medical floor. Patient reports marked improvement in his shortness of breath and cough. Patient denies any further blood tinge in his sputum. Patient denies significant shortness of breath, chest pain, fever. No new chest x-ray did review today. Final sputum culture was negative, and blood cultures are negative at 48 hours. CBC from today shows mild leukocytosis with WBC count of, hemoglobin 14, hematocrit 44.5, platelets 178,000. BMP is stable sodium of 143, potassium 4.8, chloride 105, serum CO2 27, BUN 25, creatinine 0.8, glucose 140. His procalcitonin was high at 0.59. He is receiving empiric antibiotics in the form of Rocephin. He is also maintained on DuoNeb inhalation, budesonide inhalation, formoterol inhalation, and IV Solu-Medrol. Also receiving Protonix for GI prophylaxis and heparin for DVT prophylaxis. Vital signs remain stable. I'm reevaluating this patient today on 02/11/2022 on a general medical floor. 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 His shortness breath has resolved on 3 L nasal cannula. He continues to have a congested productive cough with yellow/brown sputum. Flutter valve is at bedside. No new chest x-ray reviewed. Sputum culture negative, culture is negative at 72 hours. CBC from today is unremarkable today BC count 10, hemoglobin 13.8, hematocrit 42, platelets 167,000. His dad nicely to [facility] also stable with a sodium 138, potassium 4.7, chloride 100, serum CO2 28, BUN 25, creatinine 0.8, glucose 163. Empiric antibiotics in the form of Rocephin continued. He also continues to receive DuoNeb inhalation, budesonide inhalation, formoterol inhalation, and IV Solu-Medrol. He is also receiving Protonix for GI prophylaxis and heparin for DVT prophylaxis. Overall the patient is hemodynamically stable. I anticipate discharge in the next 24-48 hours. He may require home O2. Objective - Vital Signs Vital signs: Vital Signs Temp 98.1 F 02/11/22 13:43 Pulse 72 02/11/22 13:43 Resp 18 02/11/22 13:43 BP 146/74 02/11/22 13:43 Pulse Ox 93 L 02/11/22 13:43 FiO2 Intake & Output 02/10/22 02/11/22 02/11/22 18:59 06:59 18:59 Intake Total 240 840 Output Total 800 Balance -560 840 Intake: Oral 240 840 Output: Urine 800 Other: Voiding Method Urinal Urinal Urinal # Voids 2 2 # Bowel Movements 1 - Exam GENERAL EXAM: Alert, obese male, comfortable in no apparent distress. HEAD: Normocephalic. EYES: Normal reaction of pupils, equal size. NOSE: Clear with pink turbinates. THROAT: No erythema or exudates. NECK: No masses, no JVD. CHEST: No chest wall deformity. LUNGS: Equal air entry with no crackles, rhonchi or dullness. Expiratory wheezes with increased aeration compared to prior exam. CVS: S1 and S2 normal with no audible murmur, regular rhythm. ABDOMEN: No hepatosplenomegaly, normal bowel sounds, no guarding or rigidity. SPINE: No scoliosis or deformity SKIN: No rashes CENTRAL NERVOUS SYSTEM: No focal deficits, tone is normal in all 4 extremities. EXTREMITIES: There is no peripheral edema. No clubbing, no cyanosis. Peripheral pulses are intact. - Labs CBC & Chem 7: 02/11/22 05:59 12/29/22 05:59 Labs: Abnormal Lab Results - Last 24 Hours (Table) 02/11/22 02/11/22 Range/Units 05:59 05:59 WBC 10.07 H (4.50-10.00) X 10*3/uL RBC 4.39 L (4.40-5.60) X 10*6/uL Immature Gran # 0.28 H (0.00-0.04) X 10*3/uL Neutrophils # 8.49 H (1.80-7.70) X 10*3/uL Eosinophils # 0 L (0.04-0.35) X 10*3/uL BUN/Creatinine Ratio 30.63 H (12.00-20.00) Ratio Glucose 163 H (70-110) mg/dL Microbiology - Last 24 Hours (Table) 02/07/22 12:35 Blood Culture - Preliminary Blood No Growth after 72 hours 02/07/22 12:50 Blood Culture - Preliminary Blood No Growth after 72 hours 02/08/22 04:20 Gram Stain - Final Sputum Sputum Culture - Final Assessment and Plan Assessment: Acute hypoxemic respiratory failure, secondary to acute COPD exacerbation, complicated by bilateral pneumonia. History of ongoing tobacco use with nicotine addiction. History of obstructive sleep apnea syndrome, maintained on CPAP. Chronic hypoxemic respiratory failure, uses nocturnal oxygen therapy. History of deafness. His of hypertension. History of osteoarthritis. History of gout. Plan: Patient's labs and medications reviewed Continue DuoNeb inhalation, budesonide inhalation, formoterol inhalation. Continue IV steroids Continue supplemental oxygen to maintain SpO2 greater than 92% Continue empiric antibiotic therapy in the form of Rocephin GI and DVT prophylaxis Anticipate discharge the next 24-48 hours. May require home O2 evaluation We will continue to follow I have personally seen and examined the patient, performed the documentation and the assessment and plan as written. Number of minutes spent on the visit: [ 10]. Time with Patient: Less than 30
[2022-02-11] MEDS ORDERED: KETOROLAC 15 MG/ML 1 ML VIAL IVP STA (21:48)
[2022-02-12] MEDS: HYDROcodone/APAP 5-325MG 1 EACH TAB PO PRN (05:52)
[2022-02-12] MEDS: methylPREDNISolone SOD SUCCI 125 MG/2 ML VIAL IV SCH ×2 (05:52→13:21)
[2022-02-12] MEDS: FORMOTEROL FUMARATE 20 MCG/2 ML NEBU INHALATION SCH (07:37)
[2022-02-12] MEDS: IPRATROPIUM-ALBUTEROL 3 ML NEB INHALATION SCH ×3 (07:37→15:31)
[2022-02-12] MEDS: BUDESONIDE 1 MG/2 ML NEBU INHALATION SCH (07:37)
[2022-02-12 07:51] VITALS: RESP 18
[2022-02-12 08:32] LABS: Basophils # (A) 0.01 X 10*3/uL (0.00-0.10); Basophils % (A) 0.1 %; Eosinophils # (A) 0 X 10*3/uL (0.04-0.35); Eosinophils % (A) 0 %; HCT 40.1 % (39.6-50.0); HGB 13.2 g/dL (13.0-17.0); Immature Grans, Automated 2.3 %; Lymphocytes # (A) 1.03 X 10*3/uL (0.90-5.00); Lymphocytes % (A) 9.7 %; MCH 31.4 pg (27.0-32.0); MCHC 32.9 g/dL (32.0-37.0); MCV 95.2 fL (80.0-97.0); Mean Platelet Volume 10.2 fL (9.5-12.2); Monocytes # (A) 0.43 X 10*3/uL (0.20-1.00); Monocytes % (A) 4.1 %; NRBC Per 100 WBC 0 /100 WBCS (0.0-0.0); Neutrophils # (A) 8.88 X 10*3/uL (1.80-7.70); Neutrophils % (A) 83.8 %; Platelet Count 152 X 10*3/uL (140-440); RBC 4.21 X 10*6/uL (4.40-5.60); RDW 13.2 % (11.5-14.5); WBC 10.59 X 10*3/uL (4.50-10.00)
[2022-02-12] MEDS: ASPIRIN 81 MG PO SCH (08:45)
[2022-02-12] MEDS: NICOTINE 14MG/24HR PATCH TRANSDERM SCH (08:45)
[2022-02-12] MEDS: lisinopriL 20 MG TAB PO SCH (08:45)
[2022-02-12] MEDS: HEPARIN SODIUM,PORCINE/PF 5,000 UNIT/0.5 ML SYRINGE SQ SCH (08:45)
[2022-02-12] MEDS: GABAPENTIN 300 MG CAP PO SCH (08:46)
[2022-02-12] MEDS: PANTOPRAZOLE 40 MG TABLET PO SCH (08:46)
[2022-02-12 08:52] LABS: African American GFR (CKD) 119.9 (60.0-200.0); Anion Gap 8.9 mmol/L (10.00-18.00); BUN/Creat Ratio 33.75 Ratio (12.00-20.00); Carbon Dioxide 30.1 mmol/L (20.0-27.5); Non-African American GFR(CKD) 103.4 (60.0-200.0); Potassium 4.9 mmol/L (3.5-5.5)
[2022-02-12 13:11] VITALS: BMI 33.1
[2022-02-12 13:41] VITALS: BP 151/80; TEMP 98.9
--- NOTE | 2022-02-12 14:44 | XR ---
EXAMINATION TYPE: XR chest 2V DATE OF EXAM: 02/12/2022 2:22 PM COMPARISON: Chest radiographs from 02/08/2022 TECHNIQUE: XR chest 2V Frontal and lateral views of the chest. CLINICAL INDICATION:Male, 51 years old with history of shortness of breath; FINDINGS: Lungs/Pleura: No pneumothorax or pleural effusion. Improved aeration of the lungs from prior examinat ion with decreased airspace opacities especially involving the left mid to lower lobe. Pulmonary vascularity: Unremarkable. Heart/mediastinum: Cardiomediastinal silhouette is unremarkable. Musculoskeletal: No acute osseous pathology. IMPRESSION: Improved aeration of the lungs with decreased airspace opacities.
--- NOTE | 2022-02-12 14:48 | P.PN ---
Subjective Progress Note Date: 02/12/22 Principal diagnosis: Acute COPD exacerbation, pneumonia 51-year-old male who primarily gets his healthcare down in [place]. The patient presented to the emergency room on February 07, complaining of shortness of breath, productive cough, chest congestion, shortness of breath, and hemoptysis. The patient does have a history of COPD, and is a heavy tobacco user. He does use home oxygen, at between 2-1/2-3 L, primarily at nighttime. His chest x-ray shows diffuse bilateral infiltrates. He's quite bronchospastic. He has undergone bronchoscopy in the past. She is currently on 3 L of oxygen. He is not receiving any IV fluids. White count 12.07, hemoglobin 13.1, hematocrit 39.5, and platelet count 151,000. Sodium 142, potassium 4.3, chlorides 108, CO2 25, BUN 23, creatinine 0.8. Pro-calcitonin level is elevated at 0.59. He tested negative for respiratory syncytial virus, coronavirus, and influenza A and influenza B. Chest x-ray continues to show bilateral airspace disease consistent with pneumonia. I'm evaluating this patient today on 02/10/2022 on a general medical floor. Patient reports marked improvement in his shortness of breath and cough. Patient denies any further blood tinge in his sputum. Patient denies significant shortness of breath, chest pain, fever. No new chest x-ray did review today. Final sputum culture was negative, and blood cultures are negative at 48 hours. CBC from today shows mild leukocytosis with WBC count of, hemoglobin 14, hematocrit 44.5, platelets 178,000. BMP is stable sodium of 143, potassium 4.8, chloride 105, serum CO2 27, BUN 25, creatinine 0.8, glucose 140. His procalcitonin was high at 0.59. He is receiving empiric antibiotics in the form of Rocephin. He is also maintained on DuoNeb inhalation, budesonide inhalation, formoterol inhalation, and IV Solu-Medrol. Also receiving Protonix for GI prophylaxis and heparin for DVT prophylaxis. Vital signs remain stable. I'm reevaluating this patient today on 02/11/2022 on a general medical floor. 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 His shortness breath has resolved on 3 L nasal cannula. He continues to have a congested productive cough with yellow/brown sputum. Flutter valve is at bedside. No new chest x-ray reviewed. Sputum culture negative, culture is negative at 72 hours. CBC from today is unremarkable today BC count 10, hemoglobin 13.8, hematocrit 42, platelets 167,000. His dad nicely to BMP also stable with a sodium 138, potassium 4.7, chloride 100, serum CO2 28, BUN 25, creatinine 0.8, glucose 163. Empiric antibiotics in the form of Rocephin continued. He also continues to receive DuoNeb inhalation, budesonide inhalation, formoterol inhalation, and IV Solu-Medrol. He is also receiving Protonix for GI prophylaxis and heparin for DVT prophylaxis. Overall the patient is hemodynamically stable. I anticipate discharge in the next 24-48 hours. He may require home O2. I'm reevaluating this patient today on 02/12/2022 on a general medical floor. Patient is restless is sitting up in bed, in no acute distress, on 3 L nasal cannula. Denies significant shortness breath, chest pain, fever. From my standpoint, patient's respiratory status seems to be back to baseline, he does use home O2. His congested, has improved today. Flutter valve is at bedside. No new chest x-ray from today to review. CBC from today was unremarkable with a WBC count of 10.6, hemoglobin 13.2, hematocrit 40, platelets 152,000. BMP was also stable with a sodium of 139, potassium 4.9, chloride 100, serum CO2 30, BUN 27, creatinine 0.8, glucose 151. Patient is receiving empiric ceftriaxone. He is maintained also on DuoNeb inhalation, motor all inhalation, budesonide inhalation, IV Solu-Medrol. He is also receiving GI prophylaxis form of Protonix, and heparin for DVT prophylaxis. Patient's vital signs remained stable. Objective - Vital Signs Vital signs: Vital Signs Temp 98.9 F 02/12/22 13:40 Pulse 75 02/12/22 13:40 Resp 18 02/12/22 13:40 BP 151/80 02/12/22 13:40 Pulse Ox 90 L 02/12/22 13:40 FiO2 Intake & Output 02/11/22 02/12/22 02/12/22 18:59 06:59 18:59 Intake Total 50 600 Balance 50 600 Weight 104.78 kg Intake: Intake, IV Titration 50 Amount cefTRIAXone 1 gm In 50 Sodium Chloride 0.9% 50 ml @ 100 mls/hr IVPB Q24HR [facility] Rx#:[id number] Oral 600 Other: Voiding Method Urinal Urinal Urinal # Voids 1 - Exam GENERAL EXAM: Alert, obese male, comfortable in no apparent distress. HEAD: Normocephalic. EYES: Normal reaction of pupils, equal size. NOSE: Clear with pink turbinates. THROAT: No erythema or exudates. NECK: No masses, no JVD. CHEST: No chest wall deformity. LUNGS: Equal air entry with no crackles, rhonchi or dullness. Faint expiratory wheezes with increased aeration compared to prior exam. CVS: S1 and S2 normal with no audible murmur, regular rhythm. ABDOMEN: No hepatosplenomegaly, normal bowel sounds, no guarding or rigidity. SPINE: No scoliosis or deformity SKIN: No rashes CENTRAL NERVOUS SYSTEM: No focal deficits, tone is normal in all 4 extremities. EXTREMITIES: There is no peripheral edema. No clubbing, no cyanosis. Periphe ral pulses are intact. - Labs CBC & Chem 7: 02/12/22 06:36 02/12/22 06:36 Labs: Abnormal Lab Results - Last 24 Hours (Table) 02/12/22 02/12/22 Range/Units 06:36 06:36 WBC 10.59 H (4.50-10.00) X 10*3/uL RBC 4.21 L (4.40-5.60) X 10*6/uL Immature Gran # 0.24 H (0.00-0.04) X 10*3/uL Neutrophils # 8.88 H (1.80-7.70) X 10*3/uL Eosinophils # 0 L (0.04-0.35) X 10*3/uL Carbon Dioxide 30.1 H (20.0-27.5) mmol/L Anion Gap 8.90 L (10.00-18.00) mmol/L BUN/Creatinine Ratio 33.75 H (12.00-20.00) Ratio Glucose 151 H (70-110) mg/dL Microbiology - Last 24 Hours (Table) 02/07/22 12:35 Blood Culture - Preliminary Blood No Growth after 96 hours 02/07/22 12:50 Blood Culture - Preliminary Blood No Growth after 96 hours Assessment and Plan Assessment: Acute hypoxemic respiratory failure, secondary to acute COPD exacerbation, complicated by bilateral pneumonia. History of ongoing tobacco use with nicotine addiction. History of obstructive sleep apnea syndrome, maintained on CPAP. Chronic hypoxemic respiratory failure, uses nocturnal oxygen therapy. History of deafness. His of hypertension. History of osteoarthritis. History of gout. Plan: Patient's labs and medications reviewed May restart home COPD medications.. Start prednisone taper. Continue supplemental oxygen to maintain SpO2 greater than 92% Home O2 evaluation Switch empiric antibiotic therapy to orals. GI and DVT prophylaxis From a pulmonary standpoint patient is cleared for discharge. I have personally seen and examined the patient, performed the documentation and the assessment and plan as written. Number of minutes spent on the visit: [ 10]. Time with Patient: Less than 30
[2022-02-12 15:42] VITALS: PULSE 65
--- NOTE | 2022-02-15 19:42 | P.DS ---
Providers Date of admission: 02/07/22 14:18 Expected date of discharge: 02/12/22 Attending physician: Jonathan Be Consults: 02/08/22 12:12 Consult Physician Routine Consulting Provider: Mckenna Shelley Consult Reason/Comments: COPD/PNA Do you want consulting provider notified?: Yes Primary care physician: Physician Nonstaff Hospital Course: Final diagnosis Acute on chronic hypoxic respiratory failure secondary to pneumonia and COPD Pneumonia with bilateral airspace disease left greater than right. Interstitial pneumonitis versus pulmonary edema Acute COPD exacerbation Chronic hypoxic respiratory failure on oxygen at 2 L via nasal cannula Obstructive sleep apnea. CPAP at night Hypertension Hearing disorder/deafness Currently everyday smoker DVT prophylaxis Discharge disposition Patient is being discharged in a stable condition with guarded prognosis to home . Patient will follow-up with his primary care provider out of [place] and will be returning there on Tuesday.. Patient is to continue with current medications as mentioned below along with a prednisone taper. Total time taken is greater than 35 minutes. Hospital course This is a 51-year-old male who was recently admitted for increasing shortness of breath and cough and congestion and sputum have been ongoing and worsening over the last 2 days. Patient with concerns for pneumonia and also acute COPD exacerbation. Patient lives in [place] and had been here visiting for the holidays with increasing shortness of breath noted along with cough and congestion and sent here for further evaluation. Patient was maintained on IV steroids along with breathing inhalational treatments and pulmonary following. 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 Patient reports he has an appointment this upcoming Tuesday when he returns home. Patient has been cleared by pulmonary for discharge home today. Currently no reports of chest pain, worsening shortness of breath, or palpitations. Patient is afebrile. No reports of nausea or vomiting and patient is tolerating diet. Patient will be discharged home today. Guarded prognosis. Physical exam: Gen: This is a 51-year-old male who is awake, alert and oriented 3, well- developed, well-nourished. HEENT: Head is atraumatic, normocephalic. Pupils equal, round. Sclerae is anicteric. NECK: Supple. No JVD. No lymphadenopathy. No thyromegaly. LUNGS: Diminished breath sounds bilaterally with some scattered rhonchi and mild expiratory wheezing noted. No intercostal retractions. HEART: Regular rate and rhythm. No murmur. ABDOMEN: Soft. Bowel sounds are present. No masses. No tenderness. EXTREMITIES: No pedal edema. No calf tenderness. NEUROLOGICAL: Patient is awake, alert and oriented x3. Cranial nerves 2 through 12 are grossly intact. Please refer to medication reconciliation sheet for a list of medications. The impression and plan of care has been dictated by Solange Ponce, Nurse Practitioner as directed. Dr. [place] MD I have performed a history and examination and MDM of this patient, discussed the same with the dictator, and agree with the dictator's assessment and plan as written ,documented as a scribe. Based on total visit time, I have performed more than 50% of the visit. Patient Condition at Discharge: Stable Plan - Discharge Summary Discharge Rx Participant: Yes New Discharge Prescriptions: New Nicotine 14Mg/24Hr Patch [Habitrol] 1 patch TRANSDERM DAILY #30 patch predniSONE 10 mg PO DIRECTED #30 tab cefUROXime axetiL [Ceftin] 500 mg PO BID 5 Days #10 tab Continue Aspirin EC [Ecotrin Low Dose] 81 mg PO DAILY lisinopriL [Zestril] 40 mg PO DAILY Budesonide/Glycopyr/Formoterol [Breztri Aerosphere Inhaler] 2 puff INHALATION RT-BID 30 Days #1 each tiZANidine [Zanaflex] 4 mg PO Q8HR PRN PRN Reason: Muscle Spasm Omeprazole 40 mg PO BID Meloxicam [Mobic] 15 mg PO DAILY HYDROcodone/APAP 5-325MG [Texline 5-325] 1 tab PO DAILY PRN PRN Reason: Pain Gabapentin [Neurontin] 300 mg PO Q8H Changed Albuterol Inhaler [Ventolin Hfa Inhaler] 2 puff INHALATION RT-Q6H PRN 30 Days #1 each PRN Reason: Shortness Of Breath Discontinued Azithromycin [Zithromax] 250 mg PO MOWEFR Discharge Medication List Aspirin EC [Ecotrin Low Dose] 81 mg PO DAILY 02/07/22 [History] Gabapentin [Neurontin] 300 mg PO Q8H 02/07/22 [History] HYDROcodone/APAP 5-325MG [Texline 5-325] 1 tab PO DAILY PRN 02/07/22 [History] Meloxicam [Mobic] 15 mg PO DAILY 02/07/22 [History] Omeprazole 40 mg PO BID 02/07/22 [History] lisinopriL [Zestril] 40 mg PO DAILY 02/07/22 [History] tiZANidine [Zanaflex] 4 mg PO Q8HR PRN 02/07/22 [History] Albuterol Inhaler [Ventolin Hfa Inhaler] 2 puff INHALATION RT-Q6H PRN 30 Days #1 each 02/12/22 [Rx] Budesonide/Glycopyr/Formoterol [Breztri Aerosphere Inhaler] 2 puff INHALATION RT-BID 30 Days #1 each 02/12/22 [Rx] Nicotine 14Mg/24Hr Patch [Habitrol] 1 patch TRANSDERM DAILY #30 patch 02/12/22 [Rx] cefUROXime axetiL [Ceftin] 500 mg PO BID 5 Days #10 tab 02/12/22 [Rx] predniSONE 10 mg PO DIRECTED #30 tab 02/12/22 [Rx] Follow up Appointment(s)/Referral(s): Arnol Chahal DO [Doctor of Osteopathic Medicine] - 1 Week (follow up when back from [place]) Nonstaff,Physician [Primary Care Provider] - 1-2 days Patient Instructions/Handouts: Cefuroxime (By mouth), Albuterol (By breathing), Prednisone (By mouth), Nicotine (Absorbed through the skin), Budesonide (By frank athing), How to Stop Smoking (DC), COPD (Chronic Obstructive Pulmonary Disease) (DC) Activity/Diet/Wound Care/Special Instructions[facility], they have an office in [place] and an office in [place]. Recommend follow-up with primary care provider [place] in [place] as soon as return Continue medications as prescribed Continue with inhalers Continue a prednisone taper Continue with oxygen Continue to avoid tobacco use Discharge Disposition: HOME SELF-CARE
== END 2022-02-12 16:25 | disposition home or self-care (01) | DRG 193 ==
LOC: EC 11:54 → 5NMEDONC 14:18
PROVIDERS: ADMIT Internal Medicine; ATTEND Internal Medicine
DX: J18.9 Pneumonia, unspecified organism (principal); J96.21 Acute and chronic respiratory failure with hypoxia; J44.0 Chronic obstructive pulmonary disease with (acute) lower respiratory infection; J44.1 Chronic obstructive pulmonary disease with (acute) exacerbation; R04.2 Hemoptysis; Z20.822 Contact with and (suspected) exposure to COVID-19; M19.90 Unspecified osteoarthritis, unspecified site; E11.9 Type 2 diabetes mellitus without complications; F17.210 Nicotine dependence, cigarettes, uncomplicated; H91.90 Unspecified hearing loss, unspecified ear; I11.0 Hypertensive heart disease with heart failure; I25.10 Atherosclerotic heart disease of native coronary artery without angina pectoris; G47.33 Obstructive sleep apnea (adult) (pediatric); I49.3 Ventricular premature depolarization; I50.9 Heart failure, unspecified; J84.89 Other specified interstitial pulmonary diseases; Z79.1 Long term (current) use of non-steroidal anti-inflammatories (NSAID); Z79.82 Long term (current) use of aspirin; Z79.899 Other long term (current) drug therapy; Z79.52 Long term (current) use of systemic steroids; Z82.49 Family history of ischemic heart disease and other diseases of the circulatory system; Z83.3 Family history of diabetes mellitus; Z91.013 Allergy to seafood; Z98.84 Bariatric surgery status; Z79.2 Long term (current) use of antibiotics
CPT/HCPCS: 36415; 71045; 71046; 80048; 80053; 83605; 83880; 84145; 84484; 85025; 85610; 85730; 87040; 87070; 87205; 87636; 93005; 94640; 94667; 94760; 96365; 96367; 96375; 99291

== ENCOUNTER 2023-08-07 17:22 | Observation (INO) | payer MEDICARE, OTHER ==
--- NOTE | 2023-08-07 18:00 | ED ---
General Adult HPI - General Chief complaint: Chest Pain Stated complaint: chest pain Time Seen by Provider: 08/07/23 17:34 Source: patient Mode of arrival: ambulatory Limitations: no limitations - History of Present Illness Initial comments: Dictation was produced using [employer] dictation software. please excuse any grammatical, word or spelling errors. Chief Complaint: 52-year-old male presents emergency department chest pain History of Present Illness: Patient 52-year-old male he has multiple comorbidities include hypertension, tobacco abuse dyslipidemia. Patient states for the last 2 weeks has been having worsening substernal chest pain. States that its like a stabbing pain that radiates down his left upper extremity. Also associated with nausea and diaphoresis. Patient reports family history of Tod artery disease. Patient took 1 low-dose aspirin prior to arrival. States that the pain is mild at the bedside. The ROS documented in this emergency department record has been reviewed and confirmed by me. Those systems with pertinent positive or negative responses have been documented in the HPI. All other systems are other negative and/or noncontributory. - Related Data Home Medications Medication Instructions Recorded Confirmed HYDROcodone/APAP 5-325MG [Cunningham 1 tab PO DAILY 02/07/22 08/07/23 5-325] Omeprazole 40 mg PO BID 02/07/22 08/07/23 lisinopriL [Zestril] 40 mg PO DAILY 02/07/22 08/07/23 Albuterol Inhaler [Ventolin Hfa 1 - 2 puff INHALATION RT-Q6H PRN 08/07/23 08/07/23 Inhaler] Cholecalciferol (Vitamin D3) 50 mcg PO DAILY 08/07/23 08/07/23 [Vitamin D3 (50 Mcg = 2000 Iu)] Fluticasone/Umeclidin/Vilanter 1 puff INHALATION RT-DAILY 08/07/23 08/07/23 [Trelegy Ellipta 200-62.5-25] Gabapentin 600 mg PO BID 08/07/23 08/07/23 Rosuvastatin [Crestor] 20 mg PO DAILY 08/07/23 08/07/23 Topiramate [Topamax] 50 mg PO HS 08/07/23 08/07/23 traZODone HCL [Desyrel] 100 mg PO HS 08/07/23 08/07/23 Allergies Allergy/AdvReac Type Severity Reaction Status Date / Time Seafood Allergy Unknown Uncoded 08/07/23 18:21 Review of Systems ROS Statement: Those systems with pertinent positive or pertinent negative responses have been documented in the HPI. ROS Other: All systems not noted in ROS Statement are negative. Past Medical History Past Medical History: Asthma, COPD, Hearing Disorder / Deafness, Hypertension, Osteoarthritis (OA), Sleep Apnea/CPAP/BIPAP Additional Past Medical History / Comment(s): gout, cpap, O2 therapy AT NIGHT /PRN History of Any Multi-Drug Resistant Organisms: None Reported Past Surgical History: No Surgical Hx Reported Additional Past Surgical History / Comment(s): gastric sleeve, lymp node removal from neck, varicose vein removal. Past Anesthesia/Blood Transfusion Reactions: No Reported Reaction Past Psychological History: No Psychological Hx Reported Smoking Status: Current every day smoker Past Alcohol Use History: Rare Past Drug Use History: Marijuana - Past Family History Mother Family Medical History: Diabetes Mellitus, Hypertension General Exam - General Exam Comments Initial Comments: PHYSICAL EXAM: General Impression: Alert and oriented x3, not in acute distress HEENT: Normocephalic atraumatic, extra-ocular movements intact, pupils equal and reactive to light bilaterally, mucous membranes moist. Cardiovascular: Heart regular rate and rhythm Chest: Able to complete full sentences, no retractions, no tachypnea Abdomen: abdomen soft, non-tender, non-distended, no organomegaly Musculoskeletal: Pulses present and equal in all extremities, no peripheral edema Motor: no focal deficits noted Neurological: CN II-XII grossly intact, no focal motor or sensory deficits noted Skin: Intact with no visualized rashes Psych: Normal affect and mood Limitations: no limitations Course Vital Signs 08/07/23 08/07/23 08/07/23 17:30 18:10 19:08 Temperature 98.4 F Pulse Rate 79 82 75 Respiratory 18 16 18 Rate Blood Pressure 139/76 144/82 119/81 O2 Sat by Pulse 95 96 97 Oximetry EKG Findings - EKG Comments: EKG Findings:: My EKG interpretation: Ventricular rate 76, sinus rhythm,. 169, QRS 106, QTc 399. No CT prolongation, no QTC prolongation, no ST or T-wave changes noted. Overall, this EKG is unremarkable Medical Decision Making - Medical Decision Making Was pt. sent in by a medical professional or institution (Dr., PA, OPTIMIZATION ANALYST, urgent care, hospital, or fdc...) When possible be specific @ -No Did you speak to anyone other than the patient for history (EMS, parent, family, police, friend...)? What history was obtained from this source @ -No Did you review nursing and triage notes (agree or disagree)? Why? @ -I reviewed and agree with nursing and triage notes Were old charts reviewed (outside hosp., previous admission, EMS record, old EKG, old radiological studies, urgent care reports/EKG's, fdc records)? Report findings @ -No old charts were reviewed Differential Diagnosis (chest pain, altered mental status, abdominal pain women, abdominal pain men, vaginal bleeding, musculoskeletal, weakness, fever, dyspnea, syncope, headache, dizziness, GI bleed, back pain, seizure, CVA, palpatations, mental health)? @ -Differential Chest Pain: Stable Angina, Unstable Angina, STEMI, NSTEMI Aortic Dissection, Pneumothorax, Musculoskeletal, Esophageal Spasm GERD, Cholecystitis, Pancreatitis, Zoster, this is not meant to be an all-inclusive list. EKG interpreted by me (3pts min.). @ -None done X-rays interpreted by me (1pt min.). @ -None done CT interpreted by me (1pt min.). @ -None done U/S interpreted by me (1pt. min.). @ -None done What testing was considered but not performed or refused? (CT, X-rays, U/S, labs)? Why? @ -None What meds were considered but not given or refused? Why? @ -None Was smoking cessation discussed for >3mins.? @ -No Were there social determinants of health that impacted care today? How? (Homelessness, low income, unemployed, alcoholism, drug addiction, transportation, low edu. Level, literacy, decrease access to med. care, senior care, rehab)? @ -No Was there de-escalation of care discussed even if they declined (Discuss DNR or withdrawal of care, Hospice)? DNR status @ -No What co-morbidities impacted this encounter? (DM, HTN, Smoking, COPD, CAD, Cancer, CVA, ARF, Chemo, Hep., AIDS, mental health diagnosis, sleep apnea, morbid obesity)? @ -Smoking history, hypertension dyslipidemia Was patient admitted / discharged? Hospital course, mention meds given and route, prescriptions, significant lab abnormalities, going to OR and other pertinent info. @ -52-year-old male presents to the emergency department with symptoms distant with acute coronary syndrome. Signs upon arrival are within acceptable limits. EKG does not show any signs of ischemia or infarction. Patient given aspirin. Evaluation obtained. First troponin is negative. Chest x-ray is nonacute. Patient has high risk. Will be admitted observation with cardiology consultation. Did you discuss the management of the patient with other professionals (professionals i.e. , PA, OPTIMIZATION ANALYST, lab, RT, psych nurse, 7th grade social studies teacher, inventory taker, teacher, quarantine officer, hospice case manager)? Give summary @ -Case discussed with hospitalist for admission Was critical care preformed (if so, how long)? @ -No Undiagnosed new problem with uncertain prognosis? @ -No Drug Therapy requiring intensive monitoring for toxicity (Heparin, Nitro, Insulin, Cardizem)? @ -No Were any procedures done? @ -No Diagnosis/symptom? Acute, or Chronic, or Acute on Chronic? Uncomplicated (without systemic symptoms) or Complicated (systemic symptoms)? @ -Acute coronary syndrome Side effects of treatment? @ -No Exacerbation, Progression, or Severe Exacerbation? @ -No Poses a threat to life or bodily function? How? (Chest pain, USA, ID, pneumonia, PE, COPD, DKA, ARF, appy, cholecystitis, CVA, Diverticulitis, Homicidal, Suicidal, threat to staff... and all critical care pts) @ -Yes - Lab Data Result diagrams: 08/07/23 18:00 08/07/23 18:00 Lab Results 08/07/23 08/07/23 08/07/23 Range/Units 18:00 18:00 18:00 WBC 9.2 (3.8-10.6) k/uL RBC 4.84 (4.30-5.90) m/uL Hgb 14.7 (13.0-17.5) gm/dL Hct 46.4 (39.0-53.0) % MCV 95.8 (80.0-100.0) fL MCH 30.3 (25.0-35.0) pg MCHC 31.6 (31.0-37.0) g/dL RDW 12.5 (11.5-15.5) % Plt Count 181 (150-450) k/uL MPV 7.6 Neutrophils % 73 % Lymphocytes % 17 % Monocytes % 6 % Eosinophils % 2 % Basophils % 1 % Neutrophils # 6.8 (1.3-7.7) k/uL Lymphocytes # 1.5 (1.0-4.8) k/uL Monocytes # 0.5 (0-1.0) k/uL Eosinophils # 0.2 (0-0.7) k/uL Basophils # 0.1 (0-0.2) k/uL PT 10.3 (10.0-12.5) sec INR 0.9 (<1.2) APTT 28.9 (22.0-30.0) sec Sodium 140 (137-145) mmol/L Potassium 4.5 (3.5-5.1) mmol/L Chloride 108 H (98-107) mmol/L Carbon Dioxide 26 (22-30) mmol/L Anion Gap 6 mmol/L BUN 15 (9-20) mg/dL Creatinine 0.68 (0.66-1.25) mg/dL Est GFR (CKD-EPI)AfAm >90 (>60 ml/min/1.73 sqM) Est GFR (CKD-EPI)NonAf >90 (>60 ml/min/1.73 sqM) Glucose 113 H (74-99) mg/dL Calcium 9.0 (8.4-10.2) mg/dL Magnesium 2.0 (1.6-2.3) mg/dL Total Bilirubin 0.4 (0.2-1.3) mg/dL AST 28 (17-59) U/L ALT 23 (4-49) U/L Alkaline Phosphatase 103 (38-126) U/L Troponin I (0.000-0.034) ng/mL Total Protein 6.4 (6.3-8.2) g/dL Albumin 4.2 (3.5-5.0) g/dL 08/07/23 Range/Units 18:00 WBC (3.8-10.6) k/uL RBC (4.30-5.90) m/uL Hgb (13.0-17.5) gm/dL Hct (39.0-53.0) % MCV (80.0-100.0) fL MCH (25.0-35.0) pg MCHC (31.0-37.0) g/dL RDW (11.5-15.5) % Plt Count (150-450) k/uL MPV Neutrophils % % Lymphocytes % % Monocytes % % Eosinophils % % Basophils % % Neutrophils # (1.3-7.7) k/uL Lymphocytes # (1.0-4.8) k/uL Monocytes # (0-1.0) k/uL Eosinophils # (0-0.7) k/uL Basophils # (0-0.2) k/uL PT (10.0-12.5) sec INR (<1.2) APTT (22.0-30.0) sec Sodium (137-145) mmol/L Potassium (3.5-5.1) mmol/L Chloride (98-107) mmol/L Carbon Dioxide (22-30) mmol/L Anion Gap mmol/L BUN (9-20) mg/dL Creatinine (0.66-1.25) mg/dL Est GFR (CKD-EPI)AfAm (>60 ml/min/1.73 sqM) Est GFR (CKD-EPI)NonAf (>60 ml/min/1.73 sqM) Glucose (74-99) mg/dL Calcium (8.4-10.2) mg/dL Magnesium (1.6-2.3) mg/dL Total Bilirubin (0.2-1.3) mg/dL AST (17-59) U/L ALT (4-49) U/L Alkaline Phosphatase (38-126) U/L Troponin I <0.012 (0.000-0.034) ng/mL Total Protein (6.3-8.2) g/dL Albumin (3.5-5.0) g/dL Disposition Clinical Impression: Chest pain Disposition: ADMITTED IP TO THIS [facility] Condition: Fair Referrals: Purnima Marx MD [Primary Care Provider] - 1-2 days Decision Time: 19:16
[2023-08-07] MEDS: ASPIRIN 81 MG PO STA (18:06)
[2023-08-07] MEDS: NITROGLYCERIN SL TABS 0.4 MG TAB SUBLINGUAL STA (18:06)
[2023-08-07 18:14] LABS: Basophils # (A) 0.1 k/uL (0-0.2); Basophils % (A) 1 %; Eosinophils # (A) 0.2 k/uL (0-0.7); Eosinophils % (A) 2 %; HCT 46.4 % (39.0-53.0); HGB 14.7 gm/dL (13.0-17.5); Lymphocytes # (A) 1.5 k/uL (1.0-4.8); Lymphocytes % (A) 17 %; MCH 30.3 pg (25.0-35.0); MCHC 31.6 g/dL (31.0-37.0); MCV 95.8 fL (80.0-100.0); Mean Platelet Volume 7.6; Monocytes # (A) 0.5 k/uL (0-1.0); Monocytes % (A) 6 %; Neutrophils # (A) 6.8 k/uL (1.3-7.7); Neutrophils % (A) 73 %; Platelet Count 181 k/uL (150-450); RBC 4.84 m/uL (4.30-5.90); RDW 12.5 % (11.5-15.5); WBC 9.2 k/uL (3.8-10.6)
[2023-08-07 18:26] LABS: ALT 23 U/L (4-49); AST 28 U/L (17-59); African American GFR (CKD) >90 (>60 ml/min/1.73 sqM); Albumin 4.2 g/dL (3.5-5.0); Alkaline Phosphatase 103 U/L (38-126); Anion Gap 6 mmol/L; Blood Urea Nitrogen 15 mg/dL (9-20); Carbon Dioxide 26 mmol/L (22-30); Chloride 108 mmol/L (98-107); Glucose 113 mg/dL (74-99); Non-African American GFR(CKD) >90 (>60 ml/min/1.73 sqM); Potassium 4.5 mmol/L (3.5-5.1); Sodium 140 mmol/L (137-145); Total Bilirubin 0.4 mg/dL (0.2-1.3); Total Protein 6.4 g/dL (6.3-8.2)
[2023-08-07 18:33] LABS: INR 0.9 (<1.2); Partial Thromboplastin Time 28.9 sec (22.0-30.0); Prothrombin Time 10.3 sec (10.0-12.5)
--- NOTE | 2023-08-07 19:00 | XR ---
EXAMINATION TYPE: XR chest 2V DATE OF EXAM: 08/07/2023 6:42 PM CLINICAL INDICATION:Male, 52 years old with history of Chest Pain; [facility] COMPARISON: Chest radiographs from 02/12/2022 TECHNIQUE: XR chest 2V Frontal and lateral views of the chest. FINDINGS: Lungs/Pleura: There is flattening of the diaphragm with increased lucency of the lungs. No evidence o f pneumothorax, pleural effusion or focal consolidation. Pulmonary vascularity: Unremarkable. Heart/mediastinum: Cardiomediastinal silhouette is unremarkable. Musculoskeletal: No acute osseous pathology. IMPRESSION: 1. No acute cardiopulmonary disease process. 2. COPD changes.
[2023-08-07] MEDS ORDERED: NITROGLYCERIN SL TABS 0.4 MG TAB SUBLINGUAL PRN (19:13)
[2023-08-07] MEDS: IPRATROPIUM-ALBUTEROL 3 ML NEB INHALATION STA (19:44)
[2023-08-08] MEDS: IPRATROPIUM-ALBUTEROL 3 ML NEB INHALATION PRN (00:47)
[2023-08-08] MEDS: IPRATROPIUM-ALBUTEROL 3 ML NEB INHALATION SCH ×2 (02:12→12:53)
[2023-08-08] MEDS: ASPIRIN 325 MG TAB PO SCH (08:20)
[2023-08-08 08:47] LABS: Chol/HDL Ratio 3.21 Ratio; LDL Cholesterol,Calculated 56.9 mg/dL (0.0-131.0)
[2023-08-08] MEDS ORDERED: REGADENOSON 0.4 MG/5 ML SYRINGE IV PRN (08:59)
[2023-08-08] MEDS ORDERED: AMINOPHYLLINE 500 MG/20 ML VIAL IV PRN (08:59)
[2023-08-08] MEDS ORDERED: CAFFEINE CITRATE 60 MG/3 ML VIAL IV PRN (08:59)
--- NOTE | 2023-08-08 10:50 | P.CRDCN ---
History of Present Illness Consult date: 08/08/23 Reason for Consult (text): ACS History of present illness: This is a 52-year-old male patient does not follow with sample stitcher. He did see Dr. Palacio back in 2015 at which time he had a Lexiscan stress test and echocardiogram. We have been asked to evaluate the patient for chest pain. He has a past medical history of hypertension, hyperlipidemia, obesity, COPD, chronic hypoxic respiratory failure on home O2, tobacco use and dependence. We have been asked to evaluate the patient for ACS. Patient states that he developed stabbing type chest pain in the center of his chest, shortness of breath which is chronic but exacerbated along with cough. He denies having any chest pain at this time. No chest pressure. He has no history of coronary artery disease with no previous surgery or stents. He had seen a sample stitcher in [place] but it has been a while and no recent testing was done. Patient is an active smoker and cut back to 1/2 pack/day. EKG: Sinus rhythm with no acute ST-T wave changes. Chest x-ray: No acute process. COPD changes. Laboratory studies: Hemoglobin 14.7. Creatinine 0.68. Blood sugar 113. Troponins negative x 3. Triglycerides 125, cholesterol 119, LDL 56. Home cardiac medications: Lisinopril 40 mg daily, rosuvastatin 20 mg daily. Lexiscan Cardiolite stress test performed 04/17/2015 was negative Lexiscan stress test. Probably normal perfusion study with mild inadequate homogenous uptake due to body habitus. Gated images show normal wall motion and thickening. Echocardiogram performed in the office on 04/11/2015 revealed normal LV size and function. Trace tricuspid regurgitation, trace mitral regurgitation. Review Of Systems: At the time of my exam: CONSTITUTIONAL: Denies fever or chills. HEENT: Denies blurred vision, vision changes, or eye pain. Denies hemoptysis CARDIOVASCULAR: Denies chest pain. Denies orthopnea. Denies PND. Denies palpitations RESPIRATORY: Chronic shortness of breath. GASTROINTESTINAL: Denies abdominal pain. Denies nausea or vomiting. HEMATOLOGIC: Denies bleeding disorders. GENITOURINARY: Denies any blood in urine. SKIN: Denies puritis. Denies rash. Physical examination: Gen: This is a 52-year-old male in no acute distress. VS: reviewed HEENT: Head is atraumatic, normocephalic. Pupils equal, round. Sclerae is anicteric. NECK: Supple. No JVD. LUNGS: Clear to auscultation. No wheezes or rhonchi. No intercostal retractions. HEART: Regular rate and rhythm. No murmur. ABDOMEN: Soft No tenderness. EXTREMITIES: No pedal edema. No calf tenderness. NEUROLOGICAL: Patient is awake, alert and oriented x3. Assessment: Atypical chest pain, acute coronary syndrome ruled out with negative troponins Hypertension Hyperlipidemia Obesity with BMI of 35 COPD Chronic hypoxic respiratory failure on home O2 Tobacco use and dependence Plan: Resume patient's home cardiac medications Schedule patient for Lexiscan Cardiolite stress test for tomorrow as patient had breakfast this morning Obtain 2-D echocardiogram and Doppler study to assess cardiac structure and function Smoking cessation. Patient will be provided with the [facility] quit line information at discharge. Further recommendations to follow based upon clinical course Thank you kindly for this consultation. Nurse practitioner note has been reviewed, I agree with documented findings and plan of care. Patient was seen and examined. Past Medical History Past Medical History: Asthma, COPD, Hearing Disorder / Deafness, Hypertension, Osteoarthritis (OA), Sleep Apnea/CPAP/BIPAP Additional Past Medical History / Comment(s): gout, cpap, O2 therapy AT NIGHT /PRN History of Any Multi-Drug Resistant Organisms: None Reported Past Surgical History: No Surgical Hx Reported Additional Past Surgical History / Comment(s): gastric sleeve, lymp node removal from neck, varicose vein removal. Past Anesthesia/Blood Transfusion Reactions: No Reported Reaction Past Psychological History: No Psychological Hx Reported Smoking Status: Current every day smoker Past Alcohol Use History: Rare Past Drug Use History: Marijuana - Past Family History Mother Family Medical History: Diabetes Mellitus, Hypertension Medications and Allergies Home Medications Medication Instructions Recorded Confirmed Type HYDROcodone/APAP 5-325MG [Pyote 1 tab PO DAILY 02/07/22 08/07/23 History 5-325] Omeprazole 40 mg PO BID 02/07/22 08/07/23 History lisinopriL [Zestril] 40 mg PO DAILY 02/07/22 08/07/23 History Albuterol Inhaler [Ventolin Hfa 1 - 2 puff INHALATION RT-Q6H PRN 08/07/23 08/07/23 History Inhaler] Cholecalciferol (Vitamin D3) 50 mcg PO DAILY 08/07/23 08/07/23 History [Vitamin D3 (50 Mcg = 2000 Iu)] Fluticasone/Umeclidin/Vilanter 1 puff INHALATION RT-DAILY 08/07/23 08/07/23 History [Trelegy Ellipta 200-62.5-25] Gabapentin 600 mg PO BID 08/07/23 08/07/23 History Rosuvastatin [Crestor] 20 mg PO DAILY 08/07/23 08/07/23 History Topiramate [Topamax] 50 mg PO HS 08/07/23 08/07/23 History traZODone HCL [Desyrel] 100 mg PO HS 08/07/23 08/07/23 History Allergies Allergy/AdvReac Type Severity Reaction Status Date / Time Seafood Allergy Unknown Uncoded 08/07/23 18:21 Physical Exam Vitals: Vital Signs Temp Pulse Resp BP Pulse Ox 08/08/23 08:31 67 08/08/23 08:23 76 08/08/23 06:15 68 08/08/23 06:03 62 08/08/23 04:13 98.2 F 51 L 16 147/78 97 08/08/23 02:13 95 08/08/23 00:54 70 18 138/63 96 08/08/23 00:47 60 08/07/23 21:19 76 16 118/72 96 08/07/23 19:52 75 08/07/23 19:44 70 08/07/23 19:08 75 18 119/81 97 08/07/23 18:10 82 16 144/82 96 08/07/23 17:30 98.4 F 79 18 139/76 95 Intake and Output 08/07/23 08/08/23 08/08/23 22:59 06:59 14:59 Other: Weight 111.13 kg Results 08/07/23 18:00 08/07/23 18:00 Cardiac Enzymes 08/07/23 08/07/23 08/07/23 Range/Units 18:00 18:00 20:39 AST 28 (17-59) U/L Troponin I <0.012 <0.012 (0.000-0.034) ng/mL 08/08/23 Range/Units 00:04 AST (17-59) U/L Troponin I <0.012 (0.000-0.034) ng/mL Coagulation 08/07/23 Range/Units 18:00 PT 10.3 (10.0-12.5) sec APTT 28.9 (22.0-30.0) sec Lipids 08/08/23 Range/Units 00:04 Triglycerides 125.00 (0.00-149.00) mg/dL Cholesterol 119.00 (0.00-200.00) mg/dL HDL Cholesterol 37.10 L (40.00-60.00) mg/dL Cholesterol/HDL Ratio 3.21 Ratio CBC 08/07/23 Range/Units 18:00 WBC 9.2 (3.8-10.6) k/uL RBC 4.84 (4.30-5.90) m/uL Hgb 14.7 (13.0-17.5) gm/dL Hct 46.4 (39.0-53.0) % Plt Count 181 (150-450) k/uL Comprehensive Metabolic Panel 08/07/23 Range/Units 18:00 Sodium 140 (137-145) mmol/L Potassium 4.5 (3.5-5.1) mmol/L Chloride 108 H (98-107) mmol/L Carbon Dioxide 26 (22-30) mmol/L BUN 15 (9-20) mg/dL Creatinine 0.68 (0.66-1.25) mg/dL Glucose 113 H (74-99) mg/dL Calcium 9.0 (8.4-10.2) mg/dL AST 28 (17-59) U/L ALT 23 (4-49) U/L Alkaline Phosphatase 103 (38-126) U/L Total Protein 6.4 (6.3-8.2) g/dL Albumin 4.2 (3.5-5.0) g/dL Current Medications Generic Name Dose Route Start Last Admin Trade Name Freq PRN Reason Stop Dose Admin Albuterol/Ipratropium 3 ml 08/08/23 00:47 08/08/23 08:21 Ipratropium-Albuterol 3 Ml Neb INHALATION 3 ml RT-Q4H PRN Administration Dyspnea Aspirin 325 mg 08/08/23 09:00 08/08/23 08:20 Aspirin 325 Mg Tab PO 325 mg DAILY LORNA Administration Nitroglycerin 0.4 mg 08/07/23 19:13 Nitroglycerin Sl Tabs 0.4 Mg Tab SUBLINGUAL Q5M PRN Chest Pain Intake and Output 08/07/23 08/08/23 08/08/23 22:59 06:59 14:59 Other: Weight 111.13 kg 08/07/23 18:00 08/07/23 18:00
[2023-08-08] MEDS: BUDESONIDE 1 MG/2 ML NEBU INHALATION SCH (12:53)
[2023-08-08] MEDS: HYDROcodone/APAP 5-325MG 1 EACH TAB PO SCH (13:00)
[2023-08-08] MEDS: PANTOPRAZOLE 40 MG TABLET PO SCH (13:01)
[2023-08-08] MEDS: GABAPENTIN 300 MG CAP PO SCH (13:01)
[2023-08-08] MEDS: lisinopriL 20 MG TAB PO SCH (13:01)
[2023-08-08] MEDS: ATORVASTATIN 40 MG TAB PO SCH (13:01)
--- NOTE | 2023-08-08 16:13 | CA ---
Transthoracic Echo Report Name: Anshul Armendariz Age: 52 Gender: M : 1970 Exam Date: 08/08/2023 13:24 Exam Location: [facility] Ht (in): 70 Wt (lb): 245 Ordering Physician: Eliza Spaulding Attending/Referring Phys: [id number], Chelly Cartridge Maker Kristin Miller RDCS Procedure CPT: Indications: LVF Cardiac Hx: Technical Quality: Technically difficult study Contrast 1: Definity Total Dose (mL): 2 Contrast 2: Total Dose (mL): MEASUREMENTS (Male / Female) Normal Values 2D ECHO LV Diastolic Diameter PLAX 4.5 cm 4.2 - 5.9 / 3.9 - 5.3 cm LV Systolic Diameter PLAX 3.0 cm IVS Diastolic Thickness 1.3 cm 0.6 - 1.0 / 0.6 - 0.9 cm LVPW Diastolic Thickness 1.2 cm 0.6 - 1.0 / 0.6 - 0.9 cm LV Relative Wall Thickness 0.5 LA Volume 58.1 cm??? 18 - 58 / 22 - 52 cm??? LA Volume Index 24.4 cm???/m??? 16 - 28 cm???/m??? M-MODE Aortic Root Diameter MM 2.7 cm LA Systolic Diameter MM 3.1 cm LA Ao Ratio MM 1.1 DOPPLER AV Peak Velocity 157.9 cm/s AV Peak Gradient 10.0 mmHg AV Mean Velocity 103.4 cm/s AV Mean Gradient 5.2 mmHg AV Velocity Time Integral 30.7 cm LVOT Peak Velocity 97.5 cm/s LVOT Peak Gradient 3.8 mmHg LVOT Velocity Time Integral 17.2 cm MV Area PHT 2.4 cm??? Mitral E Point Velocity 104.1 cm/s Mitral A Point Velocity 68.8 cm/s Mitral E to A Ratio 1.5 MV Deceleration Time 318.6 ms MV E' Velocity 11.4 cm/s Mitral E to MV E' Ratio 9.1 FINDINGS Left Ventricle Mildly increased left ventricular wall thickness. Left ventricular cavity size normal. Normal left ventricular systolic function with no obvious regional wall motion abnormalities. No obvious regional wall motion abnormality Left ventricular ejection fraction is estimated at 55-60 %. Indeterminate diastolic function. No evidence of LV thrombus Right Ventricle Right ventricle not well visualized. Right Atrium Right atrium not well visualized. Left Atrium Mildly increased left atrial area. Mitral Valve Structurally normal mitral valve. No mitral stenosis. Trace mitral regurgitation. Aortic Valve No aortic valve stenosis or regurgitation. Tricuspid Valve Structurally normal tricuspid valve. Mild tricuspid regurgitation. Pulmonic Valve Structurally normal pulmonic valve. Pericardium No pericardial effusion. Aorta Normal size aortic root and proximal ascending aorta. CONCLUSIONS Limited echo due to technically difficult study Left ventricular ejection fraction is estimated at 55-60 %. Normal LV size. Mild concentric LVH No obvious regional wall motion abnormality No significant aortic and mitral valve disease Previewed by: Dr Isacc Lara (Electronically Signed) Final Date: 08 August 2023 16:12
--- NOTE | 2023-08-08 19:21 | HP ---
HISTORY AND PHYSICAL CHIEF COMPLAINT: Chest pain. HISTORY OF PRESENT ILLNESS: This 52-year-old gentleman with a past medical history of asthma, COPD, was complaining of chest pain in the epigastrium more like a pressure type with some associated cough and admitted for further evaluation and treatment. The patient had previous stress in 2016. Cardiology planning a stress test. There is no history of any fever, rigors, or chills. Chest x-ray showed some increased bronchovascular markings. PAST MEDICAL HISTORY: Asthma, COPD. Rest of the history and rest of the chart also reviewed. HOME MEDICATIONS: Reviewed, include vitamin D3. Doses and rest of medications noted. ALLERGIES: Seafood. FAMILY HISTORY: Diabetes, hypertension. SOCIAL HISTORY: Continued smoking. REVIEW OF SYSTEMS: Fourteen-point review is negative as mentioned. PHYSICAL EXAMINATION: VITAL SIGNS: Pulse 60, blood pressure 127/84, respirations 16. HEENT: Conjunctivae normal. NECK: No jugular venous distension. CARDIOVASCULAR: S1, S2. RESPIRATIONS: Bilateral scattered rhonchi and crackles. ABDOMEN: Soft. NERVOUS SYSTEM: Nonfocal. SKIN: No rash. JOINTS: No active deforming arthropathy. LABORATORY DATA: Reviewed. ASSESSMENT: 1. Chest pain, possible unstable angina. 2. Chronic obstructive pulmonary disease with some cough. 3. Asthma. 4. Hypertension. 5. Degenerative joint disease. 6. Multiple complex medical issues. RECOMMENDATIONS AND DISCUSSION: This 52-year-old gentleman presented with multiple complex medical issues. Recommend to continue current medications. Continue symptomatic treatment. Bronchodilators. Resume the home medications. Cardiology and Pulmonology consultations. Otherwise, we will continue to monitor. Further recommendations to follow. MMODL / IJN: [id number] /
[2023-08-08] MEDS: traZODone HCL 100 MG TAB PO SCH (21:03)
[2023-08-08] MEDS: TOPIRAMATE 25 MG TAB PO SCH (21:04)
--- NOTE | 2023-08-09 04:59 | P.CNPUL ---
History of Present Illness Consult date: 08/09/23 Requesting physician: Solange Ponce (s) Reason for consult: COPD Chief complaint: Chest pain History of present illness: Patient is a 52-year-old white male who just recently moved back from [place] in February, and has past medical history significant for severe COPD, current ongoing tobacco dependence, obstructive sleep apnea with home CPAP, obesity, hypertension, hyperlipidemia, GERD. He has recently become established with Dr. Chahal in the pulmonary office. He did undergo PFT which showed a reduced FEV1/FVC ratio of 69% and FEV1 49% of predicted or 1.91 L. Uncorrected DLCO was 33% of predicted. This is consistent with severe COPD/emphysema. He is currently on a combination of Trelegy maintenance inhaler and as needed Ventolin HFA inhaler. He does have home oxygen available and utilizes 3 L/min nasal cannula. He also uses a CPAP at night. Patient continues to smoke, but is down to 1/2 pack/day. Patient presented to emergency room on 08/07/2023 with a chief complaint of 2 weeks of worsening substernal chest pain. There is associated shortness of breath, intermittent nausea, and diaphoresis. EKG shows normal sinus rhythm without any of obvious acute ischemic changes. Troponins less than 0.012 x 3. Echocardiogram shows a preserved left ventricular ejection fraction of 55 to 60%. Patient is currently lying in bed, on 3 L/min nasal cannula, in no acute distress. Admits congested cough, which is mostly nonproductive, has previously had episodes of hemoptysis in the past, but none currently. Denies fevers. Denies sick contacts. He is bronchospastic. Chest x-ray shows chronic COPD changes without any acute cardiopulmonary process. CBC unremarkable. D-dimer 0.36. CMP unremarkable. Afebrile. Vital signs are stable. Review of Systems REVIEW OF SYSTEMS: CONSTITUTIONAL: Denies any recent significant weight loss or weight gain. EYES: Denies change in vision. EARS, NOSE, MOUTH, THROAT: Denies headaches, denies sore throat. CARDIOVASCULAR: Admits substernal chest pain, nonradiating and progressively worse over the last 2 to 3 weeks. Denies any heart palpitations, lightheadedness, syncopal events. Denies lower extremity swelling. RESPIRATORY: See HPI GASTROINTESTINAL: Denies change in appetite, abdominal pain, vomiting, or diarrhea. Does have intermittent nausea. GENITOURINARY: Denies hematuria, denies infections. MUSKULOSKELETAL: Denies pain, denies swelling. INTEGUMENTARY: Denies rash, denies eczema. NEUROLOGICAL: Denies recent memory loss, no recent seizure activity. PSYCHIATRIC: Denies anxiety, denies depression. HEMATOLOGIC/LYMPHATIC: Denies anemia, denies enlarged lymph node Past Medical History Past Medical History: Asthma, COPD, Hearing Disorder / Deafness, Hypertension, Osteoarthritis (OA), Sleep Apnea/CPAP/BIPAP Additional Past Medical History / Comment(s): gout, cpap, O2 therapy AT NIGHT /PRN History of Any Multi-Drug Resistant Organisms: None Reported Past Surgical History: No Surgical Hx Reported Additional Past Surgical History / Comment(s): gastric sleeve, lymp node removal from neck, varicose vein removal. Past Anesthesia/Blood Transfusion Reactions: No Reported Reaction Past Psychological History: No Psychological Hx Reported Smoking Status: Current every day smoker Past Alcohol Use History: Rare Additional Past Alcohol Use History / Comment(s): STARTED SMOKING 1982 Past Drug Use History: Marijuana - Past Family History Mother Family Medical History: Diabetes Mellitus, Hypertension Medications and Allergies Home Medications Medication Instructions Recorded Confirmed Type HYDROcodone/APAP 5-325MG [Paige 1 tab PO DAILY 02/07/22 08/07/23 History 5-325] Omeprazole 40 mg PO BID 02/07/22 08/07/23 History lisinopriL [Zestril] 40 mg PO DAILY 02/07/22 08/07/23 History Albuterol Inhaler [Ventolin Hfa 1 - 2 puff INHALATION RT-Q6H PRN 08/07/23 08/07/23 History Inhaler] Cholecalciferol (Vitamin D3) 50 mcg PO DAILY 08/07/23 08/07/23 History [Vitamin D3 (50 Mcg = 2000 Iu)] Fluticasone/Umeclidin/Vilanter 1 puff INHALATION RT-DAILY 08/07/23 08/07/23 History [Trelegy Ellipta 200-62.5-25] Gabapentin 600 mg PO BID 08/07/23 08/07/23 History Rosuvastatin [Crestor] 20 mg PO DAILY 08/07/23 08/07/23 History Topiramate [Topamax] 50 mg PO HS 08/07/23 08/07/23 History traZODone HCL [Desyrel] 100 mg PO HS 08/07/23 08/07/23 History Allergies Allergy/AdvReac Type Severity Reaction Status Date / Time Seafood Allergy Unknown Uncoded 08/07/23 18:21 Physical Exam Vitals: Vital Signs Temp Pulse Pulse Resp BP BP Pulse Ox 08/09/23 02:00 97.9 F 71 15 115/67 97 08/08/23 21:07 97.8 F 67 15 112/72 97 08/08/23 20:09 68 08/08/23 19:50 63 08/08/23 19:00 73 16 117/76 98 08/08/23 15:50 57 L 08/08/23 15:40 56 L 08/08/23 12:26 71 16 127/84 95 08/08/23 11:53 60 08/08/23 11:45 58 L 08/08/23 10:20 98.4 F 74 18 124/66 94 L 08/08/23 08:31 67 08/08/23 08:23 76 08/08/23 06:15 68 08/08/23 06:03 62 Intake and Output 08/08/23 08/08/23 08/09/23 14:59 22:59 06:59 Other: Voiding Method Toilet # Voids 1 Weight 111.13 kg GENERAL EXAM: Alert, 52-year-old white male, comfortable in no apparent distress. HEAD: Normocephalic and atraumatic EYES: Normal reaction of pupils, equal size. NOSE: Clear with pink turbinates. THROAT: No erythema or exudates. NECK: No masses, no JVD. CHEST: No chest wall deformity. LUNGS: Equal air entry with scattered rhonchi bilaterally. On 3 L/min nasal cannula. Bronchospastic cough. No conversational dyspnea or accessory muscle use.. CVS: S1 and S2 normal with no audible murmur, regular rhythm. No extra heart sounds ABDOMEN: No hepatosplenomegaly, active bowel sounds, no guarding or rigidity. SPINE: No scoliosis or deformity SKIN: No rashes CENTRAL NERVOUS SYSTEM: No focal deficits, tone is normal in all 4 extremities. EXTREMITIES: There is no peripheral edema, clubbing, or cyanosis. Peripheral pulses are intact. Results - Laboratory Findings CBC and BMP: 08/07/23 18:00 08/07/23 18:00 PT/INR, D-dimer PT 10.3 sec (10.0-12.5) 08/07/23 18:00 INR 0.9 (<1.2) 08/07/23 18:00 D-Dimer 0.36 mg/L FEU (<0.60) 08/09/23 01:28 Abnormal lab findings: Abnormal Labs 08/07/23 08/08/23 18:00 00:04 Chloride 108 H Glucose 113 H HDL Cholesterol 37.10 L - Diagnostic Findings Chest x-ray: image reviewed Assessment and Plan Assessment: Suspect acute COPD exacerbation, Chest x-ray shows chronic COPD changes without any acute cardiopulmonary process. No focal infiltrates or evidence of pneumonia. Acute on chronic dyspnea, secondary to above Atypical chest pain Severe chronic obstructive pulmonary disease, PFT showed a reduced FEV1/FVC ratio of 69% and FEV1 49% of predicted or 1.91 L. Uncorrected DLCO was 33% of predicted. Chronic hypoxemic respiratory failure, secondary to above Chronic ongoing tobacco dependence Obstructive sleep apnea with home CPAP, currently utilizing one of the facilities CPAP machines for the night, patient is unsure of pressure settings on his home device. Obesity, with a BMI of 35.2 kg/m History of hypertension History of hyperlipidemia History of GERD Plan: Patient's medications, labs, chest x-ray were reviewed Continue supplemental oxygen to maintain oxygen saturation of 90% or greater. Utilize CPAP HS. Continue combination of DuoNebs [id number], budesonide inhalation, formoterol inhalation, and start patient on IV Solu-Medrol 60 mg every 6 hours. Smoking cessation counseling performed. Nicotine replacement offered. Patient educated on the importance of not smoking concurrently while wearing supplemental oxygen. Patient is being ruled out for ACS by cardiology Echocardiogram noted. Stress test is scheduled for later today We will continue to follow I have personally seen and examined the patient, performed the documentation and the assessment and plan as written. Number of minutes spent on the visit:20 Time with Patient: Greater than 30
[2023-08-09] MEDS: methylPREDNISolone SOD SUCCI 125 MG/2 ML VIAL IV SCH (06:21)
[2023-08-09] MEDS: FORMOTEROL FUMARATE 20 MCG/2 ML NEBU INHALATION SCH (07:55)
[2023-08-09 10:28] LABS: Basophils # (A) 0.04 X 10*3/uL (0.00-0.10); Basophils % (A) 0.7 %; Eosinophils # (A) 0.17 X 10*3/uL (0.04-0.35); Eosinophils % (A) 2.9 %; HCT 40.4 % (39.6-50.0); HGB 12.7 g/dL (13.0-17.0); Lymphocytes # (A) 1.69 X 10*3/uL (0.90-5.00); Lymphocytes % (A) 28.8 %; MCH 30.5 pg (27.0-32.0); MCHC 31.4 g/dL (32.0-37.0); MCV 97.1 FL (80.0-97.0); Mean Platelet Volume 10.4 FL (9.5-12.2); Monocytes # (A) 0.47 X 10*3/uL (0.20-1.00); NRBC Per 100 WBC 0 X 10*3/uL (0.00-0.01); Neutrophils # (A) 3.48 X 10*3/uL (1.80-7.70); Neutrophils % (A) 59.3 %; Platelet Count 154 X 10*3/uL (140-440); RBC 4.16 X 10*6/uL (4.40-5.60); RDW 12.3 % (11.5-14.5); WBC 5.87 X 10*3/uL (4.50-10.00)
[2023-08-09 10:41] LABS: BUN/Creat Ratio 21.14 Ratio (12.00-20.00); Blood Urea Nitrogen 14.8 mg/dL (9.0-27.0); Calcium 9.1 mg/dL (8.7-10.3); Carbon Dioxide 27.5 mmol/L (21.6-31.8); Chloride 108 mmol/L (96-109); Glucose 92 mg/dL (70-110); Potassium 4.3 mmol/L (3.5-5.5); Sodium 146 mmol/L (135-145)
[2023-08-09] MEDS: CHOLECALCIFEROL 25 MCG (1000 IU) TABLET PO SCH (10:43)
[2023-08-09] MEDS: NICOTINE 21MG/24HR PATCH TRANSDERM SCH (10:43)
--- NOTE | 2023-08-09 10:57 | P.PN ---
Subjective Progress Note Date: 08/09/23 Reason for Consult (text): ACS History of present illness: This is a 52-year-old male patient does not follow with intelligence chief. He did see Dr. Palacio back in 2015 at which time he had a Lexiscan stress test and echocardiogram. We have been asked to evaluate the patient for chest pain. He has a past medical history of hypertension, hyperlipidemia, obesity, COPD, chronic hypoxic respiratory failure on home O2, tobacco use and dependence. We have been asked to evaluate the patient for ACS. Patient states that he developed stabbing type chest pain in the center of his chest, shortness of breath which is chronic but exacerbated along with cough. He denies having any chest pain at this time. No chest pressure. He has no history of coronary artery disease with no previous surgery or stents. He had seen a intelligence chief in [place] but it has been a while and no recent testing was done. Patient is an active smoker and cut back to 1/2 pack/day. EKG: Sinus rhythm with no acute ST-T wave changes. Chest x-ray: No acute process. COPD changes. Laboratory studies: Hemoglobin 14.7. Creatinine 0.68. Blood sugar 113. Troponins negative x 3. Triglycerides 125, cholesterol 119, LDL 56. Home cardiac medications: Lisinopril 40 mg daily, rosuvastatin 20 mg daily. Lexiscan Cardiolite stress test performed 04/17/2015 was negative Lexiscan stress test. Probably normal perfusion study with mild inadequate homogenous uptake due to body habitus. Gated images show normal wall motion and thickening. Echocardiogram performed in the office on 04/11/2015 revealed normal LV size and function. Trace tricuspid regurgitation, trace mitral regurgitation. 08/08 Patient is seen today in the stress lab. He is scheduled for Lexiscan stress test to be completed today. Echocardiogram reveals EF of 55 to 60%. Blood pressure 147/87, heart rate 76, pulse ox 98% on 3 L nasal cannula. WBC 5.8, hemoglobin 12.7. Sodium 146, potassium 4.3, BUN 14 and creatinine 0.7. Physical examination: Gen: This is a 52-year-old male in no acute distress. VS: reviewed HEENT: Head is atraumatic, normocephalic. Pupils equal, round. Sclerae is anicteric. NECK: Supple. No JVD. LUNGS: Clear to auscultation. No wheezes or rhonchi. No intercostal retractions. HEART: Regular rate and rhythm. No murmur. ABDOMEN: Soft No tenderness. EXTREMITIES: No pedal edema. No calf tenderness. NEUROLOGICAL: Patient is awake, alert and oriented x3. Assessment: Atypical chest pain, acute coronary syndrome ruled out with negative troponins Hypertension Hyperlipidemia Obesity with BMI of 35 COPD Chronic hypoxic respiratory failure on home O2 Tobacco use and dependence Plan: Continue patient's home cardiac medications Complete Lexiscan Cardiolite stress test Smoking cessation. Patient will be provided with the [facility] quit line information at discharge. If Lexiscan stress test is unremarkable, patient is cleared for discharge and may follow-up with Dr. Lara in 1 to 2 weeks. Nurse practitioner note has been reviewed, I agree with documented findings and plan of care. Patient was seen and examined. Dr. Lara's addendum His echocardiogram showed an EF of 55 to 60%, mild concentric LVH with no obvious regional wall motion abnormality or valvular dysfunction. Nuclear images reviewed independently did not show any reversible or fixed perfusion defect, 147/80, heart rate 67 beats, he is on lisinopril 40 mg and rosuvastatin 20 mg which we will continue Okay to be discharged from cardiology standpoint with outpatient follow-up with me Objective - Vital Signs Vital signs: Vital Signs Temp 97.8 F 08/09/23 07:00 Pulse 76 08/09/23 10:40 Resp 16 08/09/23 10:40 BP 147/87 08/09/23 10:40 Pulse Ox 98 08/09/23 10:40 FiO2 Intake & Output 08/08/23 08/09/23 08/09/23 18:59 06:59 18:59 Weight 111.13 kg Other: Voiding Method Toilet # Voids 2 - Labs CBC & Chem 7: 08/09/23 06:14 08/09/23 06:14 Labs: Abnormal Lab Results - Last 24 Hours (Table) 08/09/23 08/09/23 Range/Units 06:14 06:14 RBC 4.16 L (4.40-5.60) X 10*6/uL Hgb 12.7 L (13.0-17.0) g/dL MCV 97.1 H (80.0-97.0) FL MCHC 31.4 L (32.0-37.0) g/dL Sodium 146 H (135-145) mmol/L BUN/Creatinine Ratio 21.14 H (12.00-20.00) Ratio
--- NOTE | 2023-08-09 10:59 | NM ---
EXAMINATION TYPE: NM stress lexiscan cardiolite DATE OF EXAM: 08/09/2023 COMPARISON: NONE CLINICAL INDICATION: Male, 52 years old with history of chest pain; TECHNIQUE: After the intravenous administration of 10.6 mCi Tc 99m Sestamibi - Cardiolite resting SP ECT images acquired 60 minutes post injection. The patient received 0.4mg Lexiscan, 25.8 mCi Tc 99m Sestamibi - Stress images obtained [address] injection FINDINGS: Review of stress and rest SPECT images demonstrates no distinct perfusion abnormality. Gated analysi s shows normal wall motion with an estimated left ventricular ejection fraction of 61 %. IMPRESSION: No scintigraphic evidence for reversible ischemia.
--- NOTE | 2023-08-09 11:33 | CA ---
Lexiscan Nuclear Stress Test Report Name: Anshul Armendariz Exam Date: 08/09/2023 08:52 Exam Location: [place] Stress Ht (in): 70 Wt (lb): 245 BSA: 2.28 Ordering Phys: Eliza Spaulding Referring Phys: LUIS MANUEL Technologist: Sebastián Vivas Age: 52 Gender: M : 1970 Procedure CPT: Indications: Reflex order-Stress test ICD-10 Codes: Patient History: CHEST PAIN, DIFFICULTY IN BREATHING, PALPITATIONS, HTN, HYPERCHOLESTEROLEMIA, FAMILY HX OF HEART DISEASE, NUMBNESS IN FACE/NECK, CURRENT SMOKER, COPD/ASTHMA/EMPHYSEMA Medications: Meds past 24 hrs: Pretest Chest Pain: STRESS TEST Lexiscan Protocol Exercise Duration (min:sec): 01:[address] Depressions (mm): Angina Score: Parrsih Score: Resting HR (bpm): 72 Peak HR (bpm): 96 Resting BP (mmHg): 124 / 76 Peak BP (mmHg): / 74 MPHR: 168 Target HR: 143 % MPHR: 57 METS: 1.0 Total Dose: Peak Dose: Atropine: Double Product: BP Response: Stress Termination: INFUSION COMPLETE Stress Symptoms: NO SYMPTOMS Stress Summary: ECG ANALYSIS Resting ECG: Stress ECG: CONCLUSIONS RESTING EKG: [Normal sinus rhythm, normal EKG] , Heart rate 65 BPM Patient recieved IV infusion of Lexiscan 0.4mg and at peak infusion STRESS EKG showed: [No significant ST-T wave changes diagnostic for ischemia by ST segment analysis] ARRYTHMIAS: [No ectopic rhythms or sustained arrythmias] CONCLUSION: 1. Normal hemodynamic and clinical response to Lexiscan infusion. 2. Non-ischemic EKG response to lexiscan infusion Please refer to the nuclear imaging portion of this stress test for complete interpretation of the study. Dr Isacc Lara (Electronically Signed) Final Date: 09 August 2023 11:32
--- NOTE | 2023-08-09 14:39 | P.PN ---
Subjective Progress Note Date: 08/09/23 This is a 52-year-old male who was recently admitted with chest pain with cardiology following. Patient underwent stress testing which was negative for any reversible ischemia recommending outpatient follow-up and EF noted to be 61%. Patient also having some increased shortness of breath with wheezing and chest discomfort likely COPD exacerbation. Pulmonary following and patient is continued on DuoNeb treatments and is being transition to IV steroids. Recommend monitoring overnight with [id number] steroids and DuoNeb treatments with possible discharge planning in 24 hours. Patient chronically wears oxygen outpatient and will continue to do so encouraged increase activity as tolerated. Review of systems: Constitutional: No reports of fatigue, fever, or chills Cardiovascular: No reports of chest pain or palpitations Respiratory: No reports of worsening shortness of breath, reports wheezing and cough GI: No reports of nausea, no reports of vomiting, no diarrhea : No reports of dysuria or retention Neurovascular: No reports of generalized weakness All medications have been reviewed PHYSICAL EXAMINATION: GENERAL: The patient is alert and oriented x4, Well developed, well nourished. Obese, elderly appearing HEENT: Pupils are round and equally reacting to light. EOMI. no scleral icterus. No conjunctival pallor. Normocephalic, atraumatic. No pharyngeal erythema. No th yromegaly. CARDIOVASCULAR: S1 and S2 muffled PULMONARY: diminished breath sounds bilaterally with some faint expiratory wheezing and coarse rhonchi noted. ABDOMEN: soft. Nontender on exam. obese. non-distended, normoactive bowel sounds. No palpable organomegaly. MUSCULOSKELETAL: No joint swelling or deformity. EXTREMITIES: No cyanosis, clubbing, or pedal edema. NEUROLOGICAL: Gross neurological examination did not reveal any focal deficits. SKIN: No rashes. Assessment: Chest pain, ruled out ACS, possible unstable angina, stress testing was negative for inducible ischemia COPD, acute exacerbation History of asthma Chronic hypoxic respiratory failure secondary to COPD, wears 2 L outpatient Hypertension history History of degenerative joint disease Continued ongoing nicotine dependence History of osteoarthritis Sleep apnea with the CPAP Obesity with a BMI of 35.2 GI prophylaxis DVT prophylaxis Full code Plan: Recommend to continue with current medications and management with cardiology and pulmonary following. Patient is status post Lexiscan stress test which was negative for inducible ischemia and has been cleared by cardiology for outpatient follow-up continuing current medication regimen. Patient evaluated by pulmonary with acute COPD exacerbation is being transition to IV steroids along with DuoNebs [id number]. Continue supplemental oxygen and encouraged to increase activity as tolerated Will monitor overnight and discuss further with pulmonary regarding discharge planning. Patient follows with Dr. Chahal outpatient Due to multiple complex medical issues, overall prognosis is guarded Possible discharge in the next 24 to 48 hours The impression and plan of care has been dictated by Solange Ponce, nurse practitioner as directed. Dr. Doug MD I have performed a history and examination and MDM of this patient, discussed the same with the dictator, and agree with the dictator's assessment and plan as written ,documented as a scribe. Based on total visit time, I have performed more than 50% of the visit. Any additional findings or plans will be noted. Objective - Vital Signs Vital signs: Vital Signs Temp 97.8 F 08/09/23 07:00 Pulse 83 08/09/23 11:39 Resp 16 08/09/23 10:40 BP 147/87 08/09/23 10:40 Pulse Ox 98 08/09/23 10:40 FiO2 Intake & Output 08/08/23 08/09/23 08/09/23 18:59 06:59 18:59 Weight 111.13 kg Other: Voiding Method Toilet # Voids 2 - Labs CBC & Chem 7: 08/09/23 06:14 08/09/23 06:14 Labs: Abnormal Lab Results - Last 24 Hours (Table) 08/09/23 08/09/23 Range/Units 06:14 06:14 RBC 4.16 L (4.40-5.60) X 10*6/uL Hgb 12.7 L (13.0-17.0) g/dL MCV 97.1 H (80.0-97.0) FL MCHC 31.4 L (32.0-37.0) g/dL Sodium 146 H (135-145) mmol/L BUN/Creatinine Ratio 21.14 H (12.00-20.00) Ratio
[2023-08-10 08:31] VITALS: BP 134/81; RESP 18; TEMP 97.5
[2023-08-10] MEDS: predniSONE 20 MG TAB PO SCH (08:36)
[2023-08-10] MEDS: amLODIPine 2.5 MG TAB PO SCH (08:36)
[2023-08-10 08:54] VITALS: PULSE 90
--- NOTE | 2023-08-10 10:34 | P.PN ---
Subjective Progress Note Date: 08/10/23 Reason for Consult (text): ACS History of present illness: This is a 52-year-old male patient does not follow with electric cell tender. He did see Dr. Palacio back in 2015 at which time he had a Lexiscan stress test and echocardiogram. We have been asked to evaluate the patient for chest pain. He has a past medical history of hypertension, hyperlipidemia, obesity, COPD, chronic hypoxic respiratory failure on home O2, tobacco use and dependence. We have been asked to evaluate the patient for ACS. Patient states that he developed stabbing type chest pain in the center of his chest, shortness of breath which is chronic but exacerbated along with cough. He denies having any chest pain at this time. No chest pressure. He has no history of coronary artery disease with no previous surgery or stents. He had seen a electric cell tender in [place] but it has been a while and no recent testing was done. Patient is an active smoker and cut back to 1/2 pack/day. EKG: Sinus rhythm with no acute ST-T wave changes. Chest x-ray: No acute process. COPD changes. Laboratory studies: Hemoglobin 14.7. Creatinine 0.68. Blood sugar 113. Troponins negative x 3. Triglycerides 125, cholesterol 119, LDL 56. Home cardiac medications: Lisinopril 40 mg daily, rosuvastatin 20 mg daily. Lexiscan Cardiolite stress test performed 04/17/2015 was negative Lexiscan stress test. Probably normal perfusion study with mild inadequate homogenous uptake due to body habitus. Gated images show normal wall motion and thickening. Echocardiogram performed in the office on 04/11/2015 revealed normal LV size and function. Trace tricuspid regurgitation, trace mitral regurgitation. 08/08 Patient is seen today in the stress lab. He is scheduled for Lexiscan stress test to be completed today. Echocardiogram reveals EF of 55 to 60%. Blood pressure 147/87, heart rate 76, pulse ox 98% on 3 L nasal cannula. WBC 5.8, hemoglobin 12.7. Sodium 146, potassium 4.3, BUN 14 and creatinine 0.7. 08/09 Yesterday, patient underwent Lexiscan Cardiolite stress test which revealed no evidence of reversible ischemia. Results of the stress test reviewed with the patient. Did discuss that during testing, patient had significant rise in his blood pressure and advised that we would be adding another blood pressure medication to help control blood pressure readings. Physical examination: Gen: This is a 52-year-old male in no acute distress. VS: reviewed HEENT: Head is atraumatic, normocephalic. Pupils equal, round. Sclerae is anicteric. NECK: Supple. No JVD. LUNGS: Clear to auscultation. No wheezes or rhonchi. No intercostal retractions. HEART: Regular rate and rhythm. No murmur. ABDOMEN: Soft No tenderness. EXTREMITIES: No pedal edema. No calf tenderness. NEUROLOGICAL: Patient is awake, alert and oriented x3. Assessment: Atypical chest pain, acute coronary syndrome ruled out with negative troponins Hypertension Hyperlipidemia Obesity with BMI of 35 COPD Chronic hypoxic respiratory failure on home O2 Tobacco use and dependence Plan: Continue patient's home cardiac medications Add amlodipine 2.5 mg daily to his home medication regime Smoking cessation. Patient will be provided with the [employer] quit line information at discharge. Patient is cleared for discharge and may follow-up with Dr. Lara in 1 to 2 weeks. Nurse practitioner note has been reviewed, I agree with documented findings and plan of care. Patient was seen and examined. Objective - Vital Signs Vital signs: Vital Signs Temp 97.8 F 08/10/23 02:00 Pulse 79 08/10/23 02:00 Resp 16 08/10/23 02:00 BP 144/76 08/10/23 02:00 Pulse Ox 95 08/10/23 02:00 FiO2 Intake & Output 08/09/23 08/10/23 08/10/23 18:59 06:59 18:59 Intake Total 236 Balance 236 Intake: Oral 236 Other: Voiding Method Toilet # Voids 4 2 - Labs CBC & Chem 7: 08/09/23 06:14 08/09/23 06:14 Labs: Abnormal Lab Results - Last 24 Hours (Table) 08/09/23 08/09/23 Range/Units 06:14 06:14 RBC 4.16 L (4.40-5.60) X 10*6/uL Hgb 12.7 L (13.0-17.0) g/dL MCV 97.1 H (80.0-97.0) FL MCHC 31.4 L (32.0-37.0) g/dL Sodium 146 H (135-145) mmol/L BUN/Creatinine Ratio 21.14 H (12.00-20.00) Ratio
[2023-08-10] MEDS: REGADENOSON 0.4 MG/5 ML SYRINGE IV ONE (10:50)
--- NOTE | 2023-08-10 12:16 | P.PN ---
Subjective Progress Note Date: 08/10/23 Patient is a 52-year-old white male who just recently moved back from [place] in February, and has past medical history significant for severe COPD, current ongoing tobacco dependence, obstructive sleep apnea with home CPAP, obesity, hypertension, hyperlipidemia, GERD. He has recently become established with Dr. Chahal in the pulmonary office. He did undergo PFT which showed a reduced FEV1/FVC ratio of 69% and FEV1 49% of predicted or 1.91 L. Uncorrected DLCO was 33% of predicted. This is consistent with severe COPD/emphysema. He is currently on a combination of Trelegy maintenance inhaler and as needed Ventolin HFA inhaler. He does have home oxygen available and utilizes 3 L/min nasal cannula. He also uses a CPAP at night. Patient continues to smoke, but is down to 1/2 pack/day. Patient presented to emergency room on 08/07/2023 with a chief complaint of 2 weeks of worsening substernal chest pain. There is associated shortness of breath, intermittent nausea, and diaphoresis. EKG shows normal sinus rhythm without any of obvious acute ischemic changes. Troponins less than 0.012 x 3. Echocardiogram shows a preserved left ventricular ejection fraction of 55 to 60%. Patient is currently lying in bed, on 3 L/min nasal cannula, in no acute distress. Admits congested cough, which is mostly nonproductive, has previously had episodes of hemoptysis in the past, but none currently. Denies fevers. Denies sick contacts. He is bronchospastic. Chest x-ray shows chronic COPD changes without any acute cardiopulmonary process. CBC unremarkable. D- dimer 0.36. CMP unremarkable. Afebrile. Vital signs are stable. The patient is seen today August 10, 2023 in follow-up on the regular medical floor. He is currently resting in bed. Awake and alert in no acute distress. He did undergo stress testing that revealed no evidence of myocardial ischemia. He is maintaining good O2 saturations in the 90s on 3 L/min per nasal cannula. He does utilize CPAP at 8 cm of water at night. He is continue on DuoNeb inhalations, Pulmicort and Perforomist inhalations, Solu-Medrol. Objective - Vital Signs Vital signs: Vital Signs Temp 97.5 F L 08/10/23 07:00 Pulse 90 08/10/23 08:55 Resp 18 08/10/23 07:00 BP 134/81 08/10/23 07:00 Pulse Ox 93 L 08/10/23 07:00 FiO2 Intake & Output 08/09/23 08/10/23 08/10/23 18:59 06:59 18:59 Intake Total 236 118 Balance 236 118 Intake: Oral 236 118 Other: Voiding Method Toilet # Voids 4 2 - Exam GENERAL EXAM: Alert, pleasant 52-year-old male, in no apparent distress. On 3 L/min nasal cannula. HEAD: Normocephalic and atraumatic EYES: Normal reaction of pupils, equal size. NOSE: Clear with pink turbinates. THROAT: No erythema or exudates. NECK: No masses, no JVD. CHEST: No chest wall deformity. LUNGS: Equal air entry with scattered rhonchi bilaterally. No conversational dyspnea or accessory muscle use.. CVS: S1 and S2 normal with no audible murmur, regular rhythm. No extra heart sounds ABDOMEN: No hepatosplenomegaly, active bowel sounds, no guarding or rigidity. SPINE: No scoliosis or deformity SKIN: No rashes CENTRAL NERVOUS SYSTEM: No focal deficits, tone is normal in all 4 extremities. EXTREMITIES: There is no peripheral edema, clubbing, or cyanosis. Peripheral pulses are intact. - Labs CBC & Chem 7: 08/09/23 06:14 08/09/23 06:14 Assessment and Plan Assessment: Suspect acute COPD exacerbation, Chest x-ray shows chronic COPD changes without any acute cardiopulmonary process. No focal infiltrates or evidence of pneumonia. Acute on chronic dyspnea, secondary to above Atypical chest pain. Stress testing revealed no evidence of myocardial ischemia Severe chronic obstructive pulmonary disease, PFT showed a reduced FEV1/FVC ratio of 69% and FEV1 49% of predicted or 1.91 L. Uncorrected DLCO was 33% of predicted. Chronic hypoxemic respiratory failure, secondary to above Chronic ongoing tobacco dependence Obstructive sleep apnea with home CPAP, currently utilizing one of the facilities CPAP machines for the night, patient is unsure of pressure settings on his home device. Obesity, with a BMI of 35.2 kg/m History of hypertension History of hyperlipidemia History of GERD Plan: The patient was seen and evaluated Medications reviewed Stress test negative for ischemia Cleared for discharge from the pulmonary standpoint Continue his home Trelegy, albuterol Complete a prednisone taper Educated regarding smoking cessation NicoDerm patch is offered Follow-up in our office in 1 week This patient was seen independently by the pulmonary nurse practitioner ad dressing pulmonary issues I have personally seen and examined the patient, performed the documentation and the assessment and plan as written. Number of minutes spent on the visit: 24.
--- NOTE | 2023-08-12 09:58 | P.DS ---
Providers Date of admission: 08/07/23 19:15 Expected date of discharge: 08/10/23 Attending physician: Shonna Camacho Consults: 08/07/23 19:13 Consult Physician Urgent Consulting Provider: Rivas Lui Consult Reason/Comments: chest pain Do you want consulting provider notified?: Yes 08/08/23 12:58 Consult Physician Urgent Consulting Provider: Arnol Chahal Consult Reason/Comments: copd, cp Do you want consulting provider notified?: Yes Primary care physician: Purnima Marx Hospital Course: Final diagnosis Chest pain, ruled out ACS, likely unstable angina, stress testing was negative for inducible ischemia COPD, acute exacerbation History of asthma Chronic hypoxic respiratory failure secondary to COPD, wears 2 L outpatient Hypertension history History of degenerative joint disease Continued ongoing nicotine dependence History of osteoarthritis Sleep apnea with the CPAP Obesity with a BMI of 35.2 GI prophylaxis DVT prophylaxis Full code Discharge disposition Patient is being discharged in a stable condition with guarded prognosis to home. Patient will follow-up with Dr. Ernie Camacho in the outpatient setting upon discharge. Patient is to continue with quick prednisone taper and outpatient follow-up with pulmonary as scheduled. Total time taken is greater than 35 minutes. Hospital course This is a 52-year-old male who was recently admitted with chest pain likely unstable angina underwent stress testing which was negative for inducible ischemia. Cardiology following recommending outpatient follow-up. Pulmonary also following as patient with concerns of possible acute COPD exacerbation. Patient chronically wears oxygen outpatient and was started on IV steroids along with DuoNeb treatments. Patient will continue a quick prednisone taper and continue treatments along with inhalers and outpatient follow-up with pulmonary. Extensive counseling regarding smoking cessation was provided. Please refer to other consultation notes for further HPI. Currently no reports of chest pain, no worsening shortness of breath, or palpitations. Patient is afebrile. No reports of nausea or vomiting and patient is tolerating diet. Patient will be discharged home today. Guarded prognosis and high risk for readmissions given patient's comorbidities Physical exam: Gen: This is a 52-year-old male who is awake, alert and oriented x 3, well-developed, elderly appearing, obese HEENT: Head is atraumatic, normocephalic. Pupils equal, round. Sclerae is anicteric. NECK: Supple. No JVD. No lymphadenopathy. No thyromegaly. LUNGS: Diminished breath sounds bilaterally with faint expiratory wheezes and coarse rhonchi. No intercostal retractions. HEART: Regular rate and rhythm. No murmur. ABDOMEN: Soft. Bowel sounds are present. No masses. No tenderness. EXTREMITIES: No pedal edema. No calf tenderness. NEUROLOGICAL: Patient is awake, alert and oriented x3. Cranial nerves 2 through 12 are grossly intact. Please refer to medication reconciliation sheet for a list of medications. The impression and plan of care has been dictated by Solange Ponce, Nurse Practitioner as directed. Dr. Doug MD I have performed a history and examination and MDM of this patient, discussed the same with the dictator, and agree with the dictator's assessment and plan as written ,documented as a scribe. Based on total visit time, I have performed more than 50% of the visit. Patient Condition at Discharge: Fair Plan - Discharge Summary New Discharge Prescriptions: New Aspirin 81 mg PO DAILY #30 tab Ipratropium-Albuterol Nebulize [Duoneb 0.5 mg-3 mg/3 ml Soln] 3 ml INHALATION RT-QID each Ipratropium-Albuterol Nebulize [Duoneb 0.5 mg-3 mg/3 ml Soln] 3 ml INHALATION RT-Q4H PRN each PRN Reason: Dyspnea Nicotine 21Mg/24Hr Patch [Habitrol] 1 patch TRANSDERM DAILY patch Nitroglycerin Sl Tabs [Nitrostat] 0.4 mg SUBLINGUAL Q5M PRN tab PRN Reason: Chest Pain amLODIPine [Norvasc] 2.5 mg PO DAILY #30 tab predniSONE 10 mg PO DIRECTED #30 tab Continue lisinopriL [Zestril] 40 mg PO DAILY Topiramate [Topamax] 50 mg PO HS Rosuvastatin [Crestor] 20 mg PO DAILY Gabapentin 600 mg PO BID Cholecalciferol (Vitamin D3) [Vitamin D3 (50 Mcg = 2000 Iu)] 50 mcg PO DAILY Omeprazole 40 mg PO BID HYDROcodone/APAP 5-325MG [Beulah 5-325] 1 tab PO DAILY traZODone HCL [Desyrel] 100 mg PO HS Fluticasone/Umeclidin/Vilanter [Trelegy Ellipta 200-62.5-25] 1 puff INHALATION RT-DAILY Albuterol Inhaler [Ventolin Hfa Inhaler] 1 - 2 puff INHALATION RT-Q6H PRN PRN Reason: Shortness Of Breath Discharge Medication List HYDROcodone/APAP 5-325MG [Beulah 5-325] 1 tab PO DAILY 02/07/22 [History] Omeprazole 40 mg PO BID 02/07/22 [History] lisinopriL [Zestril] 40 mg PO DAILY 02/07/22 [History] Albuterol Inhaler [Ventolin Hfa Inhaler] 1 - 2 puff INHALATION RT-Q6H PRN 08/07/23 [History] Cholecalciferol (Vitamin D3) [Vitamin D3 (50 Mcg = 2000 Iu)] 50 mcg PO DAILY 08/07/23 [History] Fluticasone/Umeclidin/Vilanter [Trelegy Ellipta 200-62.5-25] 1 puff INHALATION RT-DAILY 08/07/23 [History] Gabapentin 600 mg PO BID 08/07/23 [History] Rosuvastatin [Crestor] 20 mg PO DAILY 08/07/23 [History] Topiramate [Topamax] 50 mg PO HS 08/07/23 [History] traZODone HCL [Desyrel] 100 mg PO HS 08/07/23 [History] Aspirin 81 mg PO DAILY #30 tab 08/10/23 [Rx] Ipratropium-Albuterol Nebulize [Duoneb 0.5 mg-3 mg/3 ml Soln] 3 ml INHALATION RT-Q4H PRN each 08/10/23 [Rx] Ipratropium-Albuterol Nebulize [Duoneb 0.5 mg-3 mg/3 ml Soln] 3 ml INHALATION RT-QID each 08/10/23 [Rx] Nicotine 21Mg/24Hr Patch [Habitrol] 1 patch TRANSDERM DAILY patch 08/10/23 [Rx] Nitroglycerin Sl Tabs [Nitrostat] 0.4 mg SUBLINGUAL Q5M PRN tab 08/10/23 [Rx] amLODIPine [Norvasc] 2.5 mg PO DAILY #30 tab 08/10/23 [Rx] predniSONE 10 mg PO DIRECTED #30 tab 08/10/23 [Rx] Follow up Appointment(s)/Referral(s): Isacc Lara MD [Medical Doctor] - 1 Week (Office will call patient with appointment ) Arnol Chahal DO [Doctor of Osteopathic Medicine] - 08/22/23 10:00 am Purnima Marx MD [Primary Care Provider] - 1-2 days Patient Instructions/Handouts: Regadenoson (By injection), Chest Pain (DC) Activity/Diet/Wound Care/Special Instructions: Activity limited until follow-up Follow-up with primary care provider on discharge Follow-up cardiology outpatient Follow-up with pulmonary outpatient in 1 to 2 weeks Continue prednisone taper Continue with medications as prescribed Discharge Disposition: HOME SELF-CARE
== END 2023-08-10 11:57 | disposition home or self-care (01) ==
LOC: EC 17:22 → 6NMEDSUR 19:15
PROVIDERS: ADMIT Hospitalist; ATTEND Hospitalist
DX: R07.2 Precordial pain (principal); J44.1 Chronic obstructive pulmonary disease with (acute) exacerbation; J96.11 Chronic respiratory failure with hypoxia; I10 Essential (primary) hypertension; E78.5 Hyperlipidemia, unspecified; G47.33 Obstructive sleep apnea (adult) (pediatric); K21.9 Gastro-esophageal reflux disease without esophagitis; M19.90 Unspecified osteoarthritis, unspecified site; F17.210 Nicotine dependence, cigarettes, uncomplicated; E66.9 Obesity, unspecified; Z68.35 Body mass index [BMI] 35.0-35.9, adult; Z99.81 Dependence on supplemental oxygen; Z79.899 Other long term (current) drug therapy
CPT/HCPCS: 96376 ×2; 96374; 99285; 36415; 94660 ×3; 94640 ×6; 94760; 93005; 93017; 93306; 85379; 80061; 80053; 80048; 83735; 84484 ×2; 85025 ×2; 85610; 85730; 71046; 78452; G0378 ×4; A9500; S4990 ×2; Q9957; J2785; J7512; J2919 ×2

== ENCOUNTER → 2024-04-11 | Outpatient (CLI) | payer MEDICARE ==
--- NOTE | 2024-04-11 22:57 | CTL ---
EXAMINATION TYPE: CT Low Dose Lung DATE OF EXAM: 04/11/2024 11:17 AM COMPARISON: None. SCREENING VISIT: Initial CT DIAGNOSTIC QUALITY: Satisfactory CLINICAL INDICATION: Male, 53 years old with history of F17.210 nicotine dependence, tobacco user tob acco user, Lung cancer screening, History of tobacco use. TECHNIQUE: Low dose computed tomography scan was performed through the chest at 1 mm thick sections a nd reconstructed images in the coronal plane at 1 mm thick sections. Contrast used: mL of , (none if empty) Oral contrast used: (none if empty) CT DLP: 104.3 mGycm, Automated exposure control for dose reduction was used. CT CTDI: 2.6 mGy, Automated exposure control for dose reduction was used. FINDINGS: LUNG NODULES: None. LUNGS: COPD: Severity: None Fibrosis: Severity: None Lymph nodes: None Other findings: None RIGHT PLEURAL SPACE: Effusion: None Calcification: None Thickening: None Pneumothorax: None LEFT PLEURAL SPACE: Effusion: None Calcification: None Thickening: None Pneumothorax: None HEART: Other: Ascending thoracic aorta at the level the main pulmonary artery measures 3.2 cm. The main pul monary artery at the bifurcation measures 2.7 cm. Heart Size: Normal Coronary calcification: None Pericardial effusion: None OTHER FINDINGS: Upper abdomen: Normal Bony thorax: Normal Supraclavicular region: Normal IMPRESSION: No suspicious changes to suggest primary or metastatic neoplasm. FOLLOW UP CT CHEST RECOMMENDATION: Follow-up low-dose CT chest one year CT LUNG RAD: Lung-Rad 1 [facility] Rajesh De Luna, , 04/11/2024 10:55 PM
== END | disposition home or self-care (01) ==
LOC: RADCTMAIN 10:53
PROVIDERS: ATTEND Family Medicine
DX: Z12.2 Encounter for screening for malignant neoplasm of respiratory organs (principal); F17.210 Nicotine dependence, cigarettes, uncomplicated
CPT/HCPCS: 71271

== ENCOUNTER 2024-04-18 11:56 | Day surgery (SDC) | payer MEDICARE, OTHER ==
[~2024-04-18 11:56] MED LIST: ATROPINE SULFATE 0.4 MG/ML 1 ML VIAL IM ONE; LACTATED RINGERS 1,000 ML IV SCH; LIDOCAINE 1% (10MG/ML) FOR IV START INTRADERMA PRN
[2024-04-18] MEDS: IV FLUID CONTINUATION 1,000 ML IV ONE (12:40)
[2024-04-18 13:04] LABS: Glucose,Whole Blood 94 mg/dL (70-110)
[2024-04-18] MEDS ORDERED: PROPOFOL 10 MG/ML 20 ML VIAL IV ONE (13:05)
[2024-04-18] MEDS ORDERED: LIDOCAINE 1% INJ 10MG/ML (20 ML MDV) ONE (13:05)
[2024-04-18 13:07] VITALS: TEMP 97.6
[2024-04-18] MEDS: LIDOCAINE 2% INJ 20 MG/ML INTRATRACH ONE ×2 (13:10→13:12)
[2024-04-18] MEDS: IPRATROPIUM-ALBUTEROL 3 ML NEB INHALATION STA (13:39)
[2024-04-18 13:52] VITALS: RESP 18
[2024-04-18 14:23] VITALS: BP 112/68; PULSE 68
--- NOTE | 2024-04-18 19:20 | PCN ---
PROCEDURE NOTE PROCEDURES: Bronchoscopy, airway examination, therapeutic lavage, bronchoalveolar lavage, right middle lobe. PREOPERATIVE DIAGNOSIS: Chronic pneumonia. POSTOPERATIVE DIAGNOSIS: Chronic pneumonia. OPERATORS: Dr. Chahal. [employer] DRIVER: Dr. Ladonna Buchanan. DESCRIPTION OF PROCEDURE: There was informed consent and universal timeout. The patient's procedure took place in room #1 [facility]. Anesthesia provided monitored anesthesia care. After the patient was adequately sedated and being fully monitored, the bronchoscope was inserted through the right nostril. It passed through the right nasopharynx into the oropharynx. The hypopharynx was identified and topicalized. The hypopharyngeal structures, including the anterior commissure, true cords, false cords, piriform sinuses, right and left; vallecula, epiglottis, all appeared normal. The glottic opening was topicalized, and the bronchoscope was pushed through the glottic opening into the trachea. There were thick secretions noted throughout the trachea. There was no dominant mass. The tracheal aminah was sharp. The right and left mainstem were tocolyzed. The right upper lobe and its 3 segments, the right middle lobe and its 2 segments, right lower lobe and its 5 segments, left upper lobe proper and its 2 segments, lingula and its 2 segments, and the left lower lobe and its 4 segments, all had similar findings of diffuse airway erythema and hyperemia. There were thick secretions noted throughout. There was some mucosal friability. There was some vascular engorgement. There was no dominant mass or tumor. The secretions were suctioned with the aid of saline lavage. Next, bronchoscope was wedged into the right middle lobe. We did a formal BAL. 30 mL of turbid fluid was recovered. The patient tolerated the procedure well. The bronchoscope was withdrawn, and the fluid will be sent for analysis. The patient will be recovered. There is no immediate complication. MMODL / IJN: [id number] /
[2024-04-19 05:37] LABS: Appearance,BF Cloudy (Clear); RBC, Body Fluid 22 /UL (0-2000)
[2024-04-19 09:53] LABS: Nucleated Cells, Body Fluid 67 /UL
== END 2024-04-18 14:33 | disposition home or self-care (01) ==
LOC: ORWHC2ENDO 11:56
PROVIDERS: ATTEND Internal Medicine Critical Care Medicine
DX: J18.9 Pneumonia, unspecified organism (principal); J44.9 Chronic obstructive pulmonary disease, unspecified; I10 Essential (primary) hypertension; F17.200 Nicotine dependence, unspecified, uncomplicated; G47.33 Obstructive sleep apnea (adult) (pediatric)
CPT/HCPCS: 88108; 88305; 89050; 87070; 87205; 87116; 87102; 87206; 31624; J2003 ×2; J2704

== ENCOUNTER 2024-05-15 11:28 | Day surgery (SDC) | payer MEDICARE, OTHER ==
[2024-05-11 11:05] VITALS: BMI 36.7
[~2024-05-15 11:28] MED LIST changes: -ATROPINE SULFATE 0.4 MG/ML 1 ML VIAL IM ONE; -LACTATED RINGERS 1,000 ML IV SCH
[2024-05-15] MEDS: IV FLUID CONTINUATION 1,000 ML IV ONE (12:18)
[2024-05-15 12:35] VITALS: TEMP 97.3
[2024-05-15] MEDS: LACTATED RINGERS 1,000 ML IV SCH (12:35)
[2024-05-15] MEDS ORDERED: PROPOFOL 10 MG/ML 20 ML VIAL IV ONE (12:51)
--- NOTE | 2024-05-15 13:00 | P.GSHP ---
History of Present Illness H&P Date: 05/15/24 Chief Complaint: Abnormal stool test 53-year-old male here for colonoscopy. He has not had 1 previously. Recent Cologuard was abnormal. Admits to intermittent rectal bleeding. Had colon cancer in a cousin and 2 uncles recently. Past Medical History Past Medical History: Asthma, COPD, Hearing Disorder / Deafness, Hyperlipidemia, Hypertension, Osteoarthritis (OA), Sleep Apnea/CPAP/BIPAP Additional Past Medical History / Comment(s): gout, cpap, O2 therapy 3L NC at all times. emphysema stage III; positive cologuard History of Any Multi-Drug Resistant Organisms: None Reported Past Surgical History: No Surgical Hx Reported Additional Past Surgical History / Comment(s): gastric sleeve, lymph node removal from neck, varicose vein removal. Past Anesthesia/Blood Transfusion Reactions: No Reported Reaction Smoking Status: Current every day smoker - Past Family History Mother Family Medical History: Diabetes Mellitus, Hypertension Medications and Allergies Home Medications Medication Instructions Recorded Confirmed Type HYDROcodone/APAP 5-325MG [[place] 1 tab PO DAILY 02/07/22 05/15/24 History 5-325] Omeprazole 40 mg PO BID 02/07/22 05/15/24 History lisinopriL [Zestril] 40 mg PO DAILY 02/07/22 05/15/24 History Albuterol Inhaler [Ventolin Hfa 1 - 2 puff INHALATION RT-Q6H PRN 08/07/23 05/15/24 History Inhaler] Fluticasone/Umeclidin/Vilan[place] 1 puff INHALATION RT-DAILY 08/07/23 05/15/24 History [Trelegy Ellipta 200-62.5-25] Rosuvastatin [Crestor] 20 mg PO DAILY 08/07/23 05/15/24 History Topiramate [Topamax] 50 mg PO HS 08/07/23 05/15/24 History traZODone HCL [Desyrel] 100 mg PO HS PRN 08/07/23 05/15/24 History Ipratropium-Albuterol Nebulize 3 ml INHALATION RT-Q4H PRN each 08/10/23 05/15/24 Rx [Duoneb 0.5 mg-3 mg/3 ml Soln] Nicotine 21Mg/24Hr Patch [Habitrol] 1 patch TRANSDERM DAILY patch 08/10/23 05/15/24 Rx amLODIPine [Norvasc] 2.5 mg PO DAILY #30 tab 08/10/23 05/15/24 Rx Allergies Allergy/AdvReac Type Severity Reaction Status Date / Time No Known Allergies Allergy Verified 05/15/24 12:19 Surgical - Exam Vital Signs Temp Pulse Resp BP Pulse Ox 97.3 F L 64 20 154/70 100 05/15/24 12:33 05/15/24 12:33 05/15/24 12:33 05/15/24 12:33 05/15/24 12:33 Physical exam: General: Well-developed, well-nourished HEENT: Normocephalic, sclerae nonicteric Abdomen: Nontender, nondistended Extremities: No edema Neuro: Alert and oriented Assessment and Plan (1) Colon cancer screening Narrative/Plan: Will proceed with colonoscopy at this time. Current Visit: Yes Status: Acute Code(s): Z12.11 - ENCOUNTER FOR SCREENING FOR MALIGNANT NEOPLASM OF COLON SNOMED Code(s): 551946820
--- NOTE | 2024-05-15 13:13 | P.PCN ---
Date of Procedure: 05/15/24 Procedure(s) Performed: PREOPERATIVE DIAGNOSIS: Abnormal Cologuard POSTOPERATIVE DIAGNOSIS: Normal exam PROCEDURE: Colonoscopy ANESTHESIA: MAC SURGEON: Jersey Curry M.D. SPECIMENS: None ENDOSCOPIC PROCEDURE: The patient was placed on the endoscopy table in the left decubitus position. The Olympus colonoscope was inserted into the anus and passed under direct visualization to the base of the cecum. The appendiceal orifice was visualized. From that point the scope was slowly withdrawn inspecting all surfaces carefully. There were no neoplastic inflammatory or polypoid lesions throughout the cecum, ascending, transverse, descending, sigmoid and rectum. There was no visible diverticulosis noted. Digital rectal examination was normal. The patient was taken to the recovery room in stable condition per anesthesia guidelines. RECOMMENDATIONS: Resume diet. Repeat colonoscopy 10 years.
[2024-05-15 13:19] VITALS: RESP 16
[2024-05-15 13:39] VITALS: BP 159/92; PULSE 63
== END 2024-05-15 13:52 | disposition home or self-care (01) ==
LOC: ORWHC2ENDO 11:28
PROVIDERS: ATTEND Surgery
DX: K62.5 Hemorrhage of anus and rectum (principal); K21.9 Gastro-esophageal reflux disease without esophagitis; J44.89 Other specified chronic obstructive pulmonary disease; J43.9 Emphysema, unspecified; I10 Essential (primary) hypertension; E78.5 Hyperlipidemia, unspecified; F17.210 Nicotine dependence, cigarettes, uncomplicated; G47.33 Obstructive sleep apnea (adult) (pediatric); M19.90 Unspecified osteoarthritis, unspecified site; Z82.49 Family history of ischemic heart disease and other diseases of the circulatory system; Z83.3 Family history of diabetes mellitus; Z79.51 Long term (current) use of inhaled steroids; Z79.899 Other long term (current) drug therapy
CPT/HCPCS: 45378; J2704